=== PATIENT | male | born 1980 | race Two or more races ===

== ENCOUNTER 2023-01-02 18:08 | Emergency (ER) | payer MEDICAID, OTHER ==
[~2023-01-02] VITALS: Ht 188 cm; Wt 160.0 kg
[2023-01-02 18:57] LABS: Basophils # (auto) 0.1 10 ^3/uL (0-0.2); Basophils % (auto) 1.7 % (0.0-2.0); Eosinophils # (auto) 0.1 10 ^3/uL (0-0.8); Eosinophils % (auto) 2.7 % (0.0-7.0); Hematocrit 38.3 % (41.0-53.0); Hemoglobin 12.6 g/dL (13.5-17.5); Lymphocytes # (auto) 0.8 10 ^3/uL (0.4-5.4); Lymphocytes % (auto) 25.9 % (10.0-50.0); Mean Corpuscular Hemoglobin 28.6 pg (28.0-32.0); Mean Corpuscular Hgb Conc. 32.8 g/dL (32.0-36.0); Mean Corpuscular Volume 87.1 fL (80.0-100.0); Monocytes # (auto) 0.4 10 ^3/uL (0-1.3); Monocytes % (auto) 13.9 % (0.0-12.0); Neutrophils # (auto) 1.8 10 ^3/uL (1.6-8.6); Neutrophils % (auto) 55.8 % (37.0-80.0); Nucleated Red Blood Cells % 0.2 %; Red Cell Distribution Width 17.6 % (11.8-14.3); White Blood Cell 3.2 10^3/uL (4.4-10.8)
[2023-01-02 19:17] LABS: Albumin 2.9 g/dL (3.4-5.0); Calcium 8.4 mg/dL (8.5-10.1); Potassium 3.6 mmol/L (3.5-5.1)
[2023-01-02 19:21] LABS: BUN/Creatinine Ratio 11.2 (10.0-20.0); Bilirubin, Total 1.8 mg/dL (0.2-1.0); Total Protein 6.6 g/dL (6.4-8.2)
[2023-01-02] MEDS ORDERED: HYDROmorphone HCL 2 MG/ML VL/or syr IM ONE (20:00)
[2023-01-02] MEDS ORDERED: ONDANSETRON HCL 4 MG/2 ML VIAL IM ONE (20:00)
[2023-01-02] MEDS ORDERED: IBUP-1455 PO (23:15)
[2023-01-02] MEDS ORDERED: CEPH500C PO (23:15)
[2023-01-03 00:21] VITALS: TEMP 97.7; O2SAT 96
[2023-01-03 00:22] VITALS: BP 168/92; PULSE 77; RESP 18
== END 2023-01-02 23:34 | disposition home or self-care (01) ==
LOC: ER 18:08
DX: N43.3 Hydrocele, unspecified (principal); N50.812 Left testicular pain; N50.811 Right testicular pain; I10 Essential (primary) hypertension; I50.9 Heart failure, unspecified; Z86.73 Personal history of transient ischemic attack (TIA), and cerebral infarction without residual deficits
CPT/HCPCS: 36415; 71046; 76870; 80053; 83880; 85025; 96372; 99285; J1170; J2405

== ENCOUNTER 2024-01-31 11:22 | Inpatient (IN) | payer MEDICAID ==
[~2024-01-31] VITALS: Ht 188 cm; Wt 160.5 kg
[~2024-01-31 11:22] MED LIST: CEPH500C PO; IBUP-1455 PO
[2024-01-31 12:42] VITALS: PULSE 82
[2024-01-31 13:52] LABS: Basophils # (auto) 0 10 ^3/uL (0-0.2); Basophils % (auto) 0.5 % (0.0-2.0); Eosinophils # (auto) 0.2 10 ^3/uL (0-0.8); Eosinophils % (auto) 2.4 % (0.0-7.0); Hematocrit 36.6 % (41.0-53.0); Hemoglobin 11.9 g/dL (13.5-17.5); Lymphocytes # (auto) 0.8 10 ^3/uL (0.4-5.4); Lymphocytes % (auto) 8.7 % (10.0-50.0); Mean Corpuscular Hemoglobin 31.3 pg (28.0-32.0); Mean Corpuscular Hgb Conc. 32.6 g/dL (32.0-36.0); Mean Corpuscular Volume 95.9 fL (80.0-100.0); Monocytes # (auto) 0.9 10 ^3/uL (0-1.3); Monocytes % (auto) 10.8 % (0.0-12.0); Neutrophils # (auto) 6.8 10 ^3/uL (1.6-8.6); Neutrophils % (auto) 77.6 % (37.0-80.0); Platelet Count (auto) 223 10^3/uL (140-450); Red Blood Cells 3.81 10^6/uL (4.5-5.90); Red Cell Distribution Width 15.6 % (11.8-14.3); White Blood Cell 8.8 10^3/uL (4.4-10.8)
[2024-01-31 14:00] LABS: Chloride 110 mmol/L (98-107); Sodium 135 mmol/L (136-145)
[2024-01-31 14:01] LABS: Calcium 8.8 mg/dL (8.7-10.4); Carbon Dioxide 15 mmol/L (20-30)
[2024-01-31 14:05] LABS: Uric Acid 12.8 mg/dL (3.7-9.2)
[2024-01-31 14:06] LABS: BUN/Creatinine Ratio 14.5 (10.0-20.0); Glucose 91 mg/dL (74-106)
[2024-01-31 14:13] LABS: Blood Urea Nitrogen 84 mg/dL (9-23)
[2024-01-31 14:14] LABS: Potassium 7.1 mmol/L (3.5-5.1)
[2024-01-31 14:15] LABS: Anion Gap 10 (5-15)
[2024-01-31] MEDS: CALCIUM CHL 100MG/ML 500 MG in D5W 5% 100 ML IV ONE (14:30)
[2024-01-31] MEDS: InsuLIN REG 1unit/0.01ml Soln (100units/ml) IV ONE (14:30)
[2024-01-31] MEDS: SODIUM BICARB 8.4% 50Meq/50ml SYR INJ IV ONE (14:30)
[2024-01-31] MEDS: DEXTROSE (50%) 50ML SYRG IV ONE (14:30)
[2024-01-31] MEDS: SODIUM ZIRCONIUM CYCL 10 GM PAK PO ONE (14:45)
[2024-01-31] MEDS: methylPREDNISolone SOD SUCC 125 MG/2 ML VL IV ONE (14:45)
[2024-01-31] MEDS: SODIUM CHLORIDE 0.9% 1,000 ML IV ONE (14:45)
[2024-01-31] MEDS: ALBUTEROL SULF 2.5 MG/0.5ML(0.5%) NEB SOLN NEB ONE (14:56)
[2024-01-31 17:49] VITALS: BP 145/84; PULSE 75; RESP 16; TEMP 97.6; O2SAT 96
[2024-01-31 18:29] VITALS: O2SAT 98
[2024-01-31 18:30] VITALS: BP 168/98; PULSE 78; RESP 18; TEMP 97.8; O2SAT 98
[2024-01-31 20:00] VITALS: PULSE 81; RESP 20; O2SAT 94
[2024-01-31 20:17] LABS: Anion Gap 9 (5-15); Carbon Dioxide 16 mmol/L (20-30); Chloride 111 mmol/L (98-107); Potassium 5.4 mmol/L (3.5-5.1); Sodium 136 mmol/L (136-145)
[2024-01-31 20:19] LABS: Calcium 9.2 mg/dL (8.7-10.4)
[2024-01-31 20:23] LABS: BUN/Creatinine Ratio 11.1 (10.0-20.0); Glucose 97 mg/dL (74-106)
[2024-01-31 20:24] LABS: Blood Urea Nitrogen 65 mg/dL (9-23)
[2024-01-31 20:48] VITALS: BP 161/89; PULSE 78; RESP 20; TEMP 98.3; O2SAT 97
[2024-01-31] MEDS: SODIUM BICARB 8.4% 50Meq/50ml SYR Vial IV ONE (21:15)
[2024-02-01] VITALS (11 sets, daily range): BP systolic 169–184; BP diastolic 90–104; PULSE 74–96; RESP 14–20; TEMP 98–98.2; O2SAT 95–100
[2024-02-01 00:32] LABS: Urine WBC None Seen /hpf (0 - 3)
[2024-02-01 01:08] LABS: Urine Bacteria FEW /hpf (None Seen); Urine Blood TRACE /uL (Negative); Urine Clarity Clear (Clear); Urine Color Colorless (Yellow); Urine Protein, UAD 1+ (Negative); Urine Specific Gravity 1.011 (1.001-1.035); Urine Urobilinogen Normal (Negative); Urine pH 5.5 (5.0-9.0)
[2024-02-01 01:09] LABS: Protein, Urine 80.4 mg/dL (0.0-11.9)
[2024-02-01 01:11] LABS: Creatinine, Urine 63.15 mg/dL (30.0-125.0)
[2024-02-01] MEDS ORDERED: CARV25TA55 PO (02:20)
[2024-02-01] MEDS ORDERED: ASPI-628 PO (02:23)
[2024-02-01] MEDS ORDERED: SPIR50TA5 PO (02:23)
[2024-02-01] MEDS ORDERED: LOSA-535 PO (02:23)
[2024-02-01] MEDS ORDERED: CHLO25TA2 PO (02:23)
[2024-02-01] MEDS ORDERED: CLON0.1T PO (02:23)
[2024-02-01] MEDS ORDERED: FURO40TA4 PO (02:23)
[2024-02-01] MEDS ORDERED: PRED10TA PO (02:23)
[2024-02-01] MEDS: HYDROcodone-ACET 5/325MG TAB PO PRN (02:32)
[2024-02-01] MEDS: hydrALAZINE HCL 20 MG/ML VL IV PRN (05:52)
[2024-02-01 07:11] LABS: Basophils # (auto) 0 10 ^3/uL (0-0.2); Basophils % (auto) 0.5 % (0.0-2.0); Eosinophils # (auto) 0.2 10 ^3/uL (0-0.8); Eosinophils % (auto) 1.8 % (0.0-7.0); Hemoglobin 11.9 g/dL (13.5-17.5); Lymphocytes % (auto) 10.7 % (10.0-50.0); Mean Corpuscular Hemoglobin 32.1 pg (28.0-32.0); Mean Corpuscular Hgb Conc. 33.9 g/dL (32.0-36.0); Mean Corpuscular Volume 94.7 fL (80.0-100.0); Monocytes # (auto) 1.2 10 ^3/uL (0-1.3); Monocytes % (auto) 12.4 % (0.0-12.0); Neutrophils % (auto) 74.6 % (37.0-80.0); Platelet Count (auto) 232 10^3/uL (140-450); Red Blood Cells 3.69 10^6/uL (4.5-5.90); Red Cell Distribution Width 15.3 % (11.8-14.3); White Blood Cell 9.3 10^3/uL (4.4-10.8)
[2024-02-01 07:31] LABS: Alanine Aminotransferase 14 U/L (7-40); Alkaline Phosphatase 79 U/L (46-116); Anion Gap 10 (5-15); BUN/Creatinine Ratio 12.7 (10.0-20.0); Blood Urea Nitrogen 73 mg/dL (9-23); Calcium 9.3 mg/dL (8.7-10.4); Carbon Dioxide 15 mmol/L (20-30); Chloride 111 mmol/L (98-107); Glucose 90 mg/dL (74-106); Sodium 136 mmol/L (136-145)
[2024-02-01 07:32] LABS: Albumin 4.2 g/dL (3.2-4.8); Aspartate Aminotransferase 8 U/L (13-40); Bilirubin, Total 0.4 mg/dL (0.2-1.0); Total Protein 8.5 g/dL (5.7-8.2)
[2024-02-01 07:43] LABS: Potassium 5.8 mmol/L (3.5-5.1)
[2024-02-01] MEDS: ALBUTEROL SULF 2.5 MG/0.5ML(0.5%) NEB SOLN ONE (08:20)
[2024-02-01] MEDS: ALBUTEROL SULF 2.5 MG/0.5ML(0.5%) NEB SOLN NEB ONE (08:27)
[2024-02-01] MEDS: DEXTROSE (50%) 50ML SYRG IV ONE (10:55)
[2024-02-01] MEDS: InsuLIN REG 1unit/0.01ml Soln (100units/ml) IV ONE (11:03)
[2024-02-01] MEDS: FUROSEMIDE 20 MG/2 ML VIAL IV ONE (11:04)
[2024-02-01] MEDS: ACCU-CHEK COMFORT CURVE STRIP VI ONE (11:35)
[2024-02-01 16:06] LABS: Magnesium 2.3 mg/dL (1.6-2.6)
[2024-02-01 16:07] LABS: Phosphorus 4.9 mg/dL (2.4-5.1)
[2024-02-01] MEDS: amLODIPine BESYLATE 5 MG TAB PO ONE (16:35)
[2024-02-01] MEDS: FUROSEMIDE 100 MG/10ML VIAL IV SCH (17:49)
[2024-02-01] MEDS ORDERED: hydrALAZINE HCL 25 MG TAB PO SCH (22:00)
[2024-02-01] MEDS: ERGOCALCIFEROL 50,000 UNIT(1.25MG) CAP PO SCH (23:10)
[2024-02-01] MEDS: hydrALAZINE HCL 25 MG TAB PO ONE (23:11)
[2024-02-01] MEDS: SODIUM BICARB 8.4% 50Meq/50ml SYR Vial IV ONE (23:11)
[2024-02-01] MEDS: SODIUM ZIRCONIUM CYCL 10 GM PAK PO SCH (23:12)
[2024-02-02] VITALS (10 sets, daily range): BP systolic 107–173; BP diastolic 61–97; PULSE 85–100; RESP 16–20; TEMP 97.8–98.6; O2SAT 95–99
[2024-02-02] MEDS: hydrALAZINE HCL 25 MG TAB PO SCH ×2 (05:53→18:25)
[2024-02-02 05:59] LABS: Basophils # (auto) 0 10 ^3/uL (0-0.2); Basophils % (auto) 0.4 % (0.0-2.0); Eosinophils # (auto) 0.2 10 ^3/uL (0-0.8); Eosinophils % (auto) 2.2 % (0.0-7.0); Hematocrit 38.1 % (41.0-53.0); Hemoglobin 13.2 g/dL (13.5-17.5); Lymphocytes # (auto) 1.5 10 ^3/uL (0.4-5.4); Mean Corpuscular Hemoglobin 32.5 pg (28.0-32.0); Mean Corpuscular Hgb Conc. 34.6 g/dL (32.0-36.0); Monocytes # (auto) 1.6 10 ^3/uL (0-1.3); Monocytes % (auto) 16.3 % (0.0-12.0); Neutrophils # (auto) 6.5 10 ^3/uL (1.6-8.6); Neutrophils % (auto) 66.1 % (37.0-80.0); Platelet Count (auto) 271 10^3/uL (140-450); Red Blood Cells 4.06 10^6/uL (4.5-5.90); Red Cell Distribution Width 15.5 % (11.8-14.3); White Blood Cell 9.9 10^3/uL (4.4-10.8)
[2024-02-02 06:13] LABS: Alanine Aminotransferase 14 U/L (7-40); Alkaline Phosphatase 79 U/L (46-116); Anion Gap 11 (5-15); BUN/Creatinine Ratio 13.8 (10.0-20.0); Blood Urea Nitrogen 71 mg/dL (9-23); Calcium 10.1 mg/dL (8.7-10.4); Carbon Dioxide 16 mmol/L (20-30); Chloride 110 mmol/L (98-107); Glucose 104 mg/dL (74-106); Sodium 137 mmol/L (136-145)
[2024-02-02 06:15] LABS: Albumin 4.6 g/dL (3.2-4.8); Aspartate Aminotransferase 8 U/L (13-40); Bilirubin, Total 0.5 mg/dL (0.2-1.0); Total Protein 9.2 g/dL (5.7-8.2)
[2024-02-02 06:23] LABS: Potassium 5.7 mmol/L (3.5-5.1)
[2024-02-02 08:06] LABS: Complement C3 164 mg/dL (82-167)
[2024-02-02] MEDS: SODIUM BICARB 50mEq/50ml Vial 150 ML in D5W 5% 1,000 ML IV ONE (08:45)
[2024-02-02] MEDS: amLODIPine BESYLATE 5 MG TAB PO SCH (10:33)
[2024-02-02] MEDS: PANTOPRAZOLE 40 MG/10 ML VIAL INJ IV SCH (10:34)
[2024-02-02] MEDS ORDERED: SODIUM ZIRCONIUM CYCL 10 GM PAK PO ONE (11:00)
[2024-02-02] MEDS ORDERED: ACCU-CHEK COMFORT CURVE STRIP VI SCH (11:30)
[2024-02-02] MEDS: CALCIUM GLUC 1,000mg/50ml-NS 50 ML IV ONE (12:43)
[2024-02-02] MEDS: DEXTROSE (50%) 50ML SYRG IV ONE (12:44)
[2024-02-02] MEDS: predniSONE 20 MG TAB PO SCH (12:45)
[2024-02-02] MEDS: InsuLIN REG 1unit/0.01ml Soln (100units/ml) IV ONE (13:25)
[2024-02-02 14:06] LABS: Anti-Centromere B Antibody <0.2 AI (0.0-0.9); Anti-Jo-1 Antibody <0.2 AI (0.0-0.9); Anti-dsDNA Antibody <1 IU/mL (0-9); Antichromatin Antibody <0.2 AI (0.0-0.9); Antiscleroderma-70 Antibody <0.2 AI (0.0-0.9); RNP Antibody 0.2 AI (0.0-0.9); Sjogren's Anti-SS-A Antibody >8.0 AI (0.0-0.9); Sjogren's Anti-SS-B Antibody <0.2 AI (0.0-0.9); Smith Antibody <0.2 AI (0.0-0.9)
[2024-02-02] MEDS: SODIUM ZIRCONIUM CYCL 10 GM PAK PO SCH (18:24)
[2024-02-02] MEDS ORDERED: ACYCLOVIR 10MG/KG Q8HR PER RX 0 ML IV SCH (19:00)
[2024-02-02] MEDS: ENOXAPARIN SOD 30 MG/0.3 ML SYRINGE SC ONE (20:39)
[2024-02-02] MEDS: cloNIDine HCL 0.1 MG TAB PO PRN (22:48)
[2024-02-02] MEDS: SODIUM BICARB 50mEq/50ml Vial 150 ML in D5W 5% 1,000 ML IV SCH (22:49)
[2024-02-03] VITALS (10 sets, daily range): BP systolic 121–160; BP diastolic 58–93; PULSE 73–93; RESP 14–20; TEMP 97–98.7; O2SAT 92–97
[2024-02-03] MEDS: SODIUM BICARB 8.4% 50Meq/50ml SYR Vial IV ONE (02:32)
[2024-02-03 06:01] LABS: Alanine Aminotransferase 14 U/L (7-40); Alkaline Phosphatase 74 U/L (46-116); Calcium 9.7 mg/dL (8.7-10.4); Carbon Dioxide 18 mmol/L (20-30); Chloride 106 mmol/L (98-107); Glucose 130 mg/dL (74-106)
[2024-02-03 06:02] LABS: Albumin 4.3 g/dL (3.2-4.8); Anion Gap 11 (5-15); Aspartate Aminotransferase 11 U/L (13-40); BUN/Creatinine Ratio 14.8 (10.0-20.0); Bilirubin, Total 0.3 mg/dL (0.2-1.0); Blood Urea Nitrogen 76 mg/dL (9-23); Potassium 4.8 mmol/L (3.5-5.1); Sodium 135 mmol/L (136-145); Total Protein 8.8 g/dL (5.7-8.2)
[2024-02-03] MEDS: PANTOPRAZOLE 40 MG TAB PO SCH (06:42)
[2024-02-03 07:15] LABS: Basophils # (auto) 0 10 ^3/uL (0-0.2); Basophils % (auto) 0.2 % (0.0-2.0); Eosinophils # (auto) 0 10 ^3/uL (0-0.8); Hematocrit 37.5 % (41.0-53.0); Hemoglobin 12.7 g/dL (13.5-17.5); Lymphocytes # (auto) 1.2 10 ^3/uL (0.4-5.4); Lymphocytes % (auto) 10.2 % (10.0-50.0); Mean Corpuscular Hemoglobin 31.5 pg (28.0-32.0); Mean Corpuscular Hgb Conc. 33.9 g/dL (32.0-36.0); Mean Corpuscular Volume 92.7 fL (80.0-100.0); Monocytes # (auto) 1.3 10 ^3/uL (0-1.3); Monocytes % (auto) 11.2 % (0.0-12.0); Neutrophils # (auto) 9.1 10 ^3/uL (1.6-8.6); Neutrophils % (auto) 78.4 % (37.0-80.0); Nucleated Red Blood Cells % 0.1 %; Platelet Count (auto) 295 10^3/uL (140-450); Red Blood Cells 4.05 10^6/uL (4.5-5.90); Red Cell Distribution Width 15.5 % (11.8-14.3); White Blood Cell 11.6 10^3/uL (4.4-10.8)
[2024-02-03] MEDS: ENOXAPARIN SOD 30 MG/0.3 ML SYRINGE SC SCH (09:00)
[2024-02-03] MEDS ORDERED: predniSONE 20 MG TAB PO ONE (16:15)
[2024-02-03] MEDS: methylPREDNISolone SOD SUCC 1,000 MG in SODIUM CHL 0.9% 250 ML IV SCH (17:17)
[2024-02-04] VITALS (10 sets, daily range): BP systolic 125–160; BP diastolic 79–103; PULSE 82–109; RESP 14–21; TEMP 97.6–98.2; O2SAT 95–98
[2024-02-04 05:55] LABS: Basophils # (auto) 0 10 ^3/uL (0-0.2); Basophils % (auto) 0.1 % (0.0-2.0); Eosinophils # (auto) 0 10 ^3/uL (0-0.8); Hemoglobin 12.4 g/dL (13.5-17.5); Lymphocytes # (auto) 1.3 10 ^3/uL (0.4-5.4); Lymphocytes % (auto) 8.8 % (10.0-50.0); Mean Corpuscular Hemoglobin 31.8 pg (28.0-32.0); Mean Corpuscular Hgb Conc. 34.5 g/dL (32.0-36.0); Mean Corpuscular Volume 92.3 fL (80.0-100.0); Monocytes # (auto) 0.3 10 ^3/uL (0-1.3); Monocytes % (auto) 1.8 % (0.0-12.0); Neutrophils # (auto) 13.6 10 ^3/uL (1.6-8.6); Neutrophils % (auto) 89.3 % (37.0-80.0); Platelet Count (auto) 341 10^3/uL (140-450); Red Cell Distribution Width 15.2 % (11.8-14.3); White Blood Cell 15.2 10^3/uL (4.4-10.8)
[2024-02-04 05:59] LABS: Alanine Aminotransferase 20 U/L (7-40); Albumin 4.2 g/dL (3.2-4.8); Alkaline Phosphatase 70 U/L (46-116); Anion Gap 11 (5-15); Aspartate Aminotransferase 8 U/L (13-40); BUN/Creatinine Ratio 17.9 (10.0-20.0); Bilirubin, Total 0.3 mg/dL (0.2-1.0); Calcium 9.8 mg/dL (8.7-10.4); Carbon Dioxide 21 mmol/L (20-30); Chloride 104 mmol/L (98-107); Glucose 156 mg/dL (74-106); Potassium 4.8 mmol/L (3.5-5.1); Sodium 136 mmol/L (136-145); Total Protein 8.7 g/dL (5.7-8.2)
[2024-02-04 06:15] LABS: Blood Urea Nitrogen 91 mg/dL (9-23)
[2024-02-04 09:00] LABS: Hepatitis B Surface Antigen Negative (Negative)
[2024-02-04 09:21] LABS: Hepatitis A Ab IgM Negative; Hepatitis B Core IgM Negative
[2024-02-04 09:22] LABS: Hepatitis C Antibody Negative (Negative)
[2024-02-04] MEDS ORDERED: predniSONE 20 MG TAB PO SCH (10:00)
[2024-02-05] VITALS (8 sets, daily range): BP systolic 126–163; BP diastolic 71–97; PULSE 76–92; RESP 20; TEMP 97.7–98.1; O2SAT 91–99
[2024-02-05] MEDS: FUROSEMIDE 100 MG/10ML VIAL IV SCH (05:25)
[2024-02-05 06:26] LABS: Basophils # (auto) 0 10 ^3/uL (0-0.2); Basophils % (auto) 0.1 % (0.0-2.0); Eosinophils # (auto) 0 10 ^3/uL (0-0.8); Hematocrit 36.3 % (41.0-53.0); Hemoglobin 12.5 g/dL (13.5-17.5); Lymphocytes % (auto) 5.5 % (10.0-50.0); Mean Corpuscular Hemoglobin 31.9 pg (28.0-32.0); Mean Corpuscular Hgb Conc. 34.4 g/dL (32.0-36.0); Mean Corpuscular Volume 92.6 fL (80.0-100.0); Monocytes # (auto) 1.1 10 ^3/uL (0-1.3); Monocytes % (auto) 5.7 % (0.0-12.0); Neutrophils # (auto) 16.2 10 ^3/uL (1.6-8.6); Neutrophils % (auto) 88.7 % (37.0-80.0); Platelet Count (auto) 343 10^3/uL (140-450); Red Blood Cells 3.92 10^6/uL (4.5-5.90); Red Cell Distribution Width 15.3 % (11.8-14.3); White Blood Cell 18.3 10^3/uL (4.4-10.8)
[2024-02-05 06:49] LABS: Alanine Aminotransferase 20 U/L (7-40); Albumin 4.3 g/dL (3.2-4.8); Alkaline Phosphatase 66 U/L (46-116); Anion Gap 10 (5-15); Aspartate Aminotransferase < 8 U/L (13-40); BUN/Creatinine Ratio 19.1 (10.0-20.0); Calcium 9.5 mg/dL (8.7-10.4); Carbon Dioxide 23 mmol/L (20-30); Chloride 104 mmol/L (98-107); Glucose 146 mg/dL (74-106); Potassium 4.4 mmol/L (3.5-5.1); Sodium 137 mmol/L (136-145)
[2024-02-05 06:50] LABS: Bilirubin, Total 0.3 mg/dL (0.2-1.0)
[2024-02-05 06:51] LABS: Total Protein 8.7 g/dL (5.7-8.2)
[2024-02-05 06:58] LABS: Blood Urea Nitrogen 95 mg/dL (9-23)
[2024-02-05] MEDS: hydrALAZINE HCL 20 MG/ML VL ONE (09:26)
[2024-02-05] MEDS: fentaNYL CITRATE 100 MCG/2 ML VL ONE (09:26)
[2024-02-05] MEDS: MIDAZOLAM HCL 2MG/2ML 2ml VIAL (1mg/ml) ONE (09:26)
[2024-02-05 09:48] LABS: INR 1.06 (0.9-1.15); Prothrombin Time 11.4 sec (9.3-11.8)
[2024-02-05 12:06] LABS: Cytoplasmic (C-ANCA) <1:20 titer (Neg:<1:20); Perinuclear (P-ANCA) <1:20 titer (Neg:<1:20)
[2024-02-05 17:06] LABS: Antiglomerular BM Antibody <0.2 units (0.0-0.9); Antimyeloperoxidase (MPO) Ab <0.2 units (0.0-0.9); Antiproteinase 3 (PR-3) Ab <0.2 units (0.0-0.9)
[2024-02-06 06:14] LABS: Albumin 3.1 g/dL (2.9-4.4); Alpha-1-Globulin 0.4 g/dL (0.0-0.4); Alpha-2-Globulin 0.9 g/dL (0.4-1.0); Gamma Globulin 2.6 g/dL (0.4-1.8); Globulin Total 5.3 g/dL (2.2-3.9); Immunoglobulin A 481 mg/dL (90-386); Immunoglobulin G, Serum 2732 mg/dL (603-1613); Immunoglobulin M 44 mg/dL (20-172); Protein Total Serum 8.4 g/dL (6.0-8.5)
[2024-02-06 14:06] LABS: Kappa Lite Chain Free Serum 152.8 mg/L (3.3-19.4)
== END 2024-02-05 14:10 | disposition home or self-care (01) | DRG 346 ==
LOC: ER 11:22 → TELE 14:41 → TELE-E-ADS 17:30
PROVIDERS: ADMIT Internal Medicine; ATTEND Internal Medicine
PROC: 0TB13ZX Excision of Left Kidney, Percutaneous Approach, Diagnostic (ICD-10-PCS; principal; 2024-02-05)
DX: M35.00 Sjogren syndrome, unspecified (principal); I50.33 Acute on chronic diastolic (congestive) heart failure; N17.9 Acute kidney failure, unspecified; N18.4 Chronic kidney disease, stage 4 (severe); M32.9 Systemic lupus erythematosus, unspecified; I13.0 Hypertensive heart and chronic kidney disease with heart failure and stage 1 through stage 4 chronic kidney disease, or unspecified chronic kidney disease; M35.9 Systemic involvement of connective tissue, unspecified; F17.210 Nicotine dependence, cigarettes, uncomplicated; E87.5 Hyperkalemia; M10.9 Gout, unspecified; E21.3 Hyperparathyroidism, unspecified; E55.9 Vitamin D deficiency, unspecified; Z86.73 Personal history of transient ischemic attack (TIA), and cerebral infarction without residual deficits
CPT/HCPCS: 36415; 71045; 76700; 76775; 76942; 80048; 80053; 80074; 81001; 82306; 82570; 82784; 82962; 83516; 83520; 83521; 83735; 83880; 83970; 84100; 84132; 84155; 84156; 84165; 84300; 84550; 85025; 85610; 85730; 86160; 86225; 86235; 86256; 86334; 86703; 93306; 93970; 94640; G0378; J1815; J2250; J2470; J7060

== ENCOUNTER 2024-04-13 10:20 | Emergency (ER) | payer MEDICAID ==
[~2024-04-13] VITALS: Ht 188 cm; Wt 163.0 kg
[~2024-04-13 10:20] MED LIST changes: +ASPI-628 PO; +CARV25TA55 PO; +CHLO25TA2 PO; +CLON0.1T PO; +FURO40TA4 PO; +LOSA-535 PO; +PRED10TA PO; +SPIR50TA5 PO
[2024-04-13 10:40] VITALS: PULSE 63; RESP 19; TEMP 98.2; O2SAT 100
[2024-04-13] MEDS ORDERED: hydrALAZINE HCL 20 MG/ML VL IV ONE (10:45)
--- NOTE | 2024-04-13 10:52 | ED.PDOC ---
General HPI Comments 44y M who presents to the ED for chief complaint of penile problem. Pt states he has been having persistent erection since earlier this AM,for approx 4 hours. Pt states he did not take anything earlier this AM and states he started to have pain when voiding and came to the ED for further evaluation. Pt states he otherwise jorge no history of erectile dysfunction and states he is still in pain but states the pain has lessened since first starting 4 hours prior. Pt in the ED, otherwise denies hematuria, inability to void, nausea, vomiting, fever, cough, chills, chest pain or shortness of breath. Pt has noted history of CHF, HTN and SLE and states he did not take any of those medications earlier this AM. Pt otherwise denies any other symptoms at this time. Chief Complaint: Penile Problem Time Seen by MD: 10:48 Reviewed notes: Nurses Notes, Medications, Allergies Allergies: Coded Allergies: NO KNOWN ALLERGIES (Unverified , 01/02/23) Home Meds Active Scripts Cephalexin (Cephalexin) 125 Mg/5 Ml Lorelei, 5 ML PO BID, #100 ML Prov:DEWAYNE WEBB MD 04/13/24 Ibuprofen Micronized (Ibuprofen) 800 Mg Tab, 800 MG PO TID PRN, #60 TAB Prov:MIKE SIMENTAL 01/02/23 Cephalexin Monohydrate (Cephalexin) 500 Mg Cap, 1 CAP PO QID for 10 Days, #40 CAP Prov:MIKE SIMENTAL 01/02/23 Reported Medications Prednisone (Prednisone) 10 Mg Tab, 6 TAB PO DAILY 02/01/24 Chlorthalidone (Chlorthalidone) 25 Mg Tab, 1 TAB PO DAILY 02/01/24 Furosemide (Furosemide) 40 Mg Tab, 2 TAB PO DAILY 02/01/24 Losartan Potassium (Losartan Potassium) 100 Mg Tab, 1 TAB PO DAILY 02/01/24 Aspirin (Aspirin Adult Low Dose) 81 Mg Tab, 1 TAB PO DAILY 02/01/24 Spironolactone (Spironolactone) 50 Mg Tab, 1 TAB PO DAILY 02/01/24 Clonidine Hydrochloride (Clonidine Hcl) 0.1 Mg Tab, 1 TAB PO BID 02/01/24 Carvedilol (Carvedilol) 25 Mg Tab, 25 MG PO Q12HR for 30 Days, MG 02/01/24 Information Source: Patient Mode of Arrival: Ambulatory Brought in by: self Severity: Moderate Inability to void: Moderate Timing: Hours Duration: Since onset Prehospital treatment: None Onset: Spontaneous Symptoms: Dysuria History of: None Location: Suprapubic Penile discharge: None Modifying factors: None associated signs and symptoms: Dysuria Past Medical History PAST MEDICAL HISTORY: CHF, CVA, HTN Past Medical History (Other): SLE Surgical History: Denies all surgeries Family History Family History: Reviewed,noncontributory to illness Social History Smoker: Cigarettes Alcohol: Occasionally Drugs: Marijuana Lives In: Home Constitutional: denies: chills, diaphoresis, fatigue, fever, malaise, sweats, weakness, others EENTM: denies: blurred vision, double vision, ear bleeding, ear discharge, ear drainage, ear pain, ear ringing, eye pain, eye redness, hearing loss, mouth pain, mouth swelling, nasal discharge, nose bleeding, nose congestion, nose pain, photophobia, tearing, throat pain, throat swelling, voice changes, others Respiratory: denies: cough, hemoptysis, orthopnea, SOB at rest, shortness of breath, SOB with excertion, stridor, wheezing, others Cardiovascular: denies: chest pain, dizzy spells, diaphoresis, Dyspnea on exertion, edema, irregular heart beat, left arm pain, lightheadedness, palpitations, PND, syncope, others Gastrointestinal: denies: abdomen distended, abdominal pain, blood streaked bowels, constipated, diarrhea, dysphagia, difficulty swallowing, hematemesis, melena, nausea, poor appetite, poor fluid intake, rectal bleeding, rectal pain, vomiting, others Genitourinary: reports: dysuria; denies: burning, flank pain, frequency, hematuria, incontinence, penile discharge, penile sore, pain, testicle pain, testicle swelling, urgency, others Neurological: denies: dizziness, fainting, headache, left sided numbness, left sided weakness, numbness, paresthesia, pre-existing deficit, right sided numbness, right sided weakness, seizure, speech problems, tingling, tremors, weakness, others Musculoskeletal: denies: back pain, gout, joint pain, joint swelling, muscle pain, muscle stiffness, neck pain, others Integumetry: denies: bruises, change in color, change in hair/nails, dryness, laceration, lesions, lumps, rash, wounds, others Allergic/Immunocompromised: denies: Difficulty Healing, Frequent Infections, Hives, Itching, others Hematologic/Lymphatic: denies: anemia, blood clots, easy bleeding, easy bruising, swollen glands, others Endocrine: denies: excessive hunger, excessive sweating, excessive thirst, excessive urination, flushing, intolerance to cold, intolerance to heat, unexplained weight gain, unexplained weight loss, others Psychiatric: denies: anxiety, bipolar disorder, depression, hopeless, panic disorder, schizophrenia, sleepless, suicidal, others All Other Systems: Reviewed and Negative Physical Exam General Appearance: Moderate Distress HEENT: Normal ENT Inspection, Pharynx Normal, TMs Normal Neck: Full Range of Motion, Non-Tender, Normal, Normal Inspection Respiratory: Chest Non-Tender, Lungs Clear, No Accessory Muscle Use, No Respiratory Distress, Normal Breath Sounds Cardiovascular: No Edema, No JVD, No Murmur, No Gallop, Normal Peripheral Pulses, Regular Rate/Rhythm Breast Exam: Deferred Gastrointestinal: No Organomegaly, Non Tender, No Pulsatile Mass, Normal Bowel Sounds, Soft Genitalia: Other (Priapism) Pelvic: Deferred Rectal: Deferred Extremities: No calf tenderness, Normal capillary refill, Normal inspection, Normal range of motion, Non-tender, No pedal edema Musculoskeletal : Apperance: Normal Neurologic: Alert, health information director II-XII nml as Tested, No Motor Deficits, Normal Affect, Normal Mood, No Sensory Deficits Cerebellar Function: Normal Reflexes: Normal Skin: Dry, Normal Color, Warm Lymphatic: No Adenopathy Was a procedure done? Was a procedure done?: No Differential Diagnosis Kidney stone (Female): N/A Urinary Problem (Male): Epididymitis, Urethritis, Urinary Retention, Urolithi asis, UTI, Other (priapism) X-Ray, Labs, Meds, VS Vital Signs Date Time Temp Pulse Resp B/P (MAP) Pulse Ox O2 Delivery O2 Flow Rate FiO2 04/13/24 14:03 73 12 179/104 (129) 100 04/13/24 13:21 82 04/13/24 12:19 199/123 04/13/24 12:07 204/116 04/13/24 11:07 199/123 04/13/24 10:40 98.2 63 19 199/123 (148) 100 98.2 11/10/24 10:40 63 19 100 Room Air* 0 21 04/13/24 10:30 97.8 62 18 206/121 (149) 97 201/125 (150) Lab Test 04/13/24 10:51 Range/Units White Blood Count 12.2 H 4.4-10.8 10^3/uL Red Blood Count 3.60 L 4.5-5.90 10^6/uL Hemoglobin 11.1 L 13.5-17.5 g/dL Hematocrit 33.6 L 41.0-53.0 % Mean Corpuscular Volume 93.4 80.0-100.0 fL Mean Corpuscular Hemoglobin 30.7 28.0-32.0 pg Mean Corpuscular Hemoglobin Concent 32.9 32.0-36.0 g/dL Red Cell Distribution Width 16.7 H 11.8-14.3 % Platelet Count 169 140-450 10^3/uL Mean Platelet Volume 8.4 6.9-10.8 fL Neutrophils (%) (Auto) 77.8 37.0-80.0 % Lymphocytes (%) (Auto) 13.3 10.0-50.0 % Monocytes (%) (Auto) 7.7 0.0-12.0 % Eosinophils (%) (Auto) 0.2 0.0-7.0 % Basophils (%) (Auto) 1.0 0.0-2.0 % Neutrophils # (Auto) 9.5 H 1.6-8.6 10 ^3/uL Lymphocytes # (Auto) 1.6 0.4-5.4 10 ^3/uL Monocytes # (Auto) 0.9 0-1.3 10 ^3/uL Eosinophils # (Auto) 0 0-0.8 10 ^3/uL Basophils # (Auto) 0.1 0-0.2 10 ^3/uL Nucleated Red Blood Cells 0.1 % B-Type Natriuretic Peptide 333.13 0-100 pg/mL Current Medications Medications (Trade) Dose Ordered Sig/Yvan Route Start Time Stop Time Status Last Admin Clonidine HCl (Catapres Tablet) 0.2 mg ONCE ONCE PO 04/13/24 10:45 04/13/24 10:46 DC 04/13/24 11:07 Diphenhydramine HCl (Benadryl Injection) 25 mg ONCE ONCE IV 04/13/24 11:00 04/13/24 11:01 DC 04/13/24 11:07 Sodium Bicarbonate 50 ml/ Sodium Chloride 1,050 ml @ 50 mls/hr ONCE ONCE IV 04/13/24 11:45 04/14/24 08:44 04/13/24 11:52 Hydralazine HCl (Apresoline Injection) 20 mg ONCE ONCE IV 04/13/24 12:15 04/13/24 12:16 DC 04/13/24 12:19 We immediately consulted Urology. The patient was initially given clonidine 0.2 mg by mouth for the elevated blood pressure The patient was then given Benadryl 25 mg IV push The patient remained with the significant priapism The patient's CBC shows an elevated white blood cell count of 12.2 The patient was able to urinate but some mild difficulty The BNP is 333.13 The patient remains extremely hypertensive so the patient was then given hydralazine 20 mg IV push We did start the patient on a sodium bicarbonate drip Urology did come down and started to withdraw blood from the penile area. We did not have a significant amount of success until we reached the1 L chris of blood extraction The patient has remained significantly hypertensive We explained to the patient that we are going to started nicardipine drip and most likely the patient would have to be admitted for accelerated hypertension The patient stated that he wants to leave AMA We told the patient that he could not leave and if he was our family member we would recommend admission The patient is still stated that he wanted to leave so he signed out AMA. Time of 1ST Reevaluation: 11:15 Reevaluation 1ST: Unchanged Patient Education/Counseling: Diagnosis, Treatment, Prognosis Family Education/Counseling: Diagnosis, Treatment, Prognosis Departure 1 Departure Time of Disposition: 14:23 Impression: Primary Impression: High flow priapism Additional Impression: Accelerated hypertension Disposition: LEFT AGAINST MEDICAL ADVICE Condition: Fair e-Prescriptions Cephalexin (Cephalexin) 125 Mg/5 Ml Lorelei 5 ML PO BID, #100 ML Prov: DEWAYNE WEBB MD 04/13/24 Critical Care Note Critical Care Time?: Yes (45 min-critical care time only) Stability Stability form required: Yes Unstable for transfer: Telemetry monitoring (Telemetry monitoring required), ED Physician Assesment (Clinical assesment) Heart Score Heart Score: Heart Score Response (Comments) Value History N/A 0 EKG N/A 0 Age N/A 0 Risk Factors N/A 0 Troponin N/A 0 Total 0 I personally scribed for DEWAYNE WEBB MD ([email or web address]) on 04/13/24 at 10:52. Electronically submitted by Ihsan Krishna ([facility] DEWAYNE WEBB MD Apr 13, 2024 10:52
[2024-04-13] MEDS: PSEUDOEPHEDRINE HCL 30 MG TAB PO ONE ×2 (11:00→12:27)
[2024-04-13 11:02] LABS: Basophils # (auto) 0.1 10 ^3/uL (0-0.2); Eosinophils # (auto) 0 10 ^3/uL (0-0.8); Eosinophils % (auto) 0.2 % (0.0-7.0); Hematocrit 33.6 % (41.0-53.0); Hemoglobin 11.1 g/dL (13.5-17.5); Lymphocytes # (auto) 1.6 10 ^3/uL (0.4-5.4); Lymphocytes % (auto) 13.3 % (10.0-50.0); Mean Corpuscular Hemoglobin 30.7 pg (28.0-32.0); Mean Corpuscular Hgb Conc. 32.9 g/dL (32.0-36.0); Mean Corpuscular Volume 93.4 fL (80.0-100.0); Monocytes # (auto) 0.9 10 ^3/uL (0-1.3); Monocytes % (auto) 7.7 % (0.0-12.0); Neutrophils # (auto) 9.5 10 ^3/uL (1.6-8.6); Neutrophils % (auto) 77.8 % (37.0-80.0); Nucleated Red Blood Cells % 0.1 %; Platelet Count (auto) 169 10^3/uL (140-450); Red Cell Distribution Width 16.7 % (11.8-14.3); White Blood Cell 12.2 10^3/uL (4.4-10.8)
[2024-04-13] MEDS: diphenhdrAMINE HCL 50 MG/1 ML VL IV ONE (11:07)
[2024-04-13] MEDS: cloNIDine HCL 0.1 MG TAB PO ONE (11:07)
[2024-04-13] MEDS: PHENYLEPHRINE HCL 10 MG/ML VL ONE (11:43)
[2024-04-13] MEDS: PHENYLEPHRINE INJ 10 MG in SODIUM CHL 0.9% 19 ML IR ONE (11:43)
[2024-04-13] MEDS: SODIUM BICARB 50mEq/50ml Vial 50 ML in SOD CHL 0.45% 1,000 ML IV ONE (11:52)
[2024-04-13] MEDS: hydrALAZINE HCL 20 MG/ML VL IV ONE (12:19)
--- NOTE | 2024-04-13 12:43 | DVHINCON2 ---
Date of service: Apr 13, [address] Blue Reason for Consultation priapism History of Present Illness History Source: Patient, Spouse/Significant Other, RN Notes, MD Notes Exam Limitations: No limitations HPI 44 yo male with PMH of Lupus CHF and HTN presents with persistent erection greater than 4 hrs sudden onset upon waking this morning. Pt attempted sexual intercourse at home without relief of symptoms. He denies new or changes to medications. He does not drink alcohol. He did not take any medications known to cause priapism. His BP is uncontrolled at this time. Home Meds Active Scripts Ibuprofen Micronized (Ibuprofen) 800 Mg Tab, 800 MG PO TID PRN, #60 TAB Prov:MIKE SIMENTAL [employer]CH [employer] OPERATOR HELPER 01/02/23 Cephalexin Monohydrate (Cephalexin) 500 Mg Cap, 1 CAP PO QID for 10 Days, #40 CAP Prov:MIKE SIMENTAL PUNCH PR[employer] OPERATOR HELPER 01/02/23 Reported Medications Prednisone (Prednisone) 10 Mg Tab, 6 TAB PO DAILY 02/01/24 Chlorthalidone (Chlorthalidone) 25 Mg Tab, 1 TAB PO DAILY 02/01/24 Furosemide (Furosemide) 40 Mg Tab, 2 TAB PO DAILY 02/01/24 Losartan Potassium (Losartan Potassium) 100 Mg Tab, 1 TAB PO DAILY 02/01/24 Aspirin (Aspirin Adult Low Dose) 81 Mg Tab, 1 TAB PO DAILY 02/01/24 Spironolactone (Spironolactone) 50 Mg Tab, 1 TAB PO DAILY 02/01/24 Clonidine Hydrochloride (Clonidine Hcl) 0.1 Mg Tab, 1 TAB PO BID 02/01/24 Carvedilol (Carvedilol) 25 Mg Tab, 25 MG PO Q12HR for 30 Days, MG 02/01/24 Review of Systems Genitourinary: Pain (persistent erection) H&P Exam Vital Signs Vital Signs Date Time Temp Pulse Resp B/P (MAP) Pulse Ox O2 Delivery O2 Flow Rate FiO2 04/13/24 12:19 199/123 04/13/24 10:30 97.8 62 18 97 General Appeara: Well developed, Well nourished, Normal Appearance, Obese Pulmonary/Respiratory: Normal inspection, Normal breath sounds, Chest non- tender, Lungs clear Cardiovascular/Chest: Edema Abdominal Exam: Normal bowel sounds, Soft, No tenderness, No hepatospenomegaly, No masses Neuro/Mental St: Alert, Oriented Appearance: Appropriate appearance, Appropriate insight Eye contact/ Speech: Cooperative, Good eye contact, Normal speech Skin Exam: Normal inspection, Normal color, Warm/dry Labs/Xrays Labs Test 04/13/24 10:51 Range/Units White Blood Count 12.2 H 4.4-10.8 10^3/uL Red Blood Count 3.60 L 4.5-5.90 10^6/uL Hemoglobin 11.1 L 13.5-17.5 g/dL Hematocrit 33.6 L 41.0-53.0 % Mean Corpuscular Volume 93.4 80.0-100.0 fL Mean Corpuscular Hemoglobin 30.7 28.0-32.0 pg Mean Corpuscular Hemoglobin Concent 32.9 32.0-36.0 g/dL Red Cell Distribution Width 16.7 H 11.8-14.3 % Platelet Count 169 140-450 10^3/uL Mean Platelet Volume 8.4 6.9-10.8 fL Neutrophils (%) (Auto) 77.8 37.0-80.0 % Lymphocytes (%) (Auto) 13.3 10.0-50.0 % Monocytes (%) (Auto) 7.7 0.0-12.0 % Eosinophils (%) (Auto) 0.2 0.0-7.0 % Basophils (%) (Auto) 1.0 0.0-2.0 % Neutrophils # (Auto) 9.5 H 1.6-8.6 10 ^3/uL Lymphocytes # (Auto) 1.6 0.4-5.4 10 ^3/uL Monocytes # (Auto) 0.9 0-1.3 10 ^3/uL Eosinophils # (Auto) 0 0-0.8 10 ^3/uL Basophils # (Auto) 0.1 0-0.2 10 ^3/uL Nucleated Red Blood Cells 0.1 % B-Type Natriuretic Peptide 333.13 0-100 pg/mL Assessment/Plan Problem List: (1) High flow priapism Plan detumescence achieved after approx 850 mls aspirated and administration of 1 cc phenylephrine. pt was given 500 cc bolus of NS with amp of bicarb. aftercare instructions provided to at the bedside Plan discussed with: Patient, Spouse, Other PASQUALE VALLES NP Apr 13, 2024 12:43
[2024-04-13 14:03] VITALS: BP 179/104; PULSE 73; RESP 12; O2SAT 100
[2024-04-13] MEDS ORDERED: CEPH125S PO (14:25)
== END 2024-04-13 14:25 | disposition left against medical advice (07) ==
LOC: ER 10:20
DX: N48.39 Other priapism (principal); I11.0 Hypertensive heart disease with heart failure; I50.9 Heart failure, unspecified; F17.210 Nicotine dependence, cigarettes, uncomplicated; F15.90 Other stimulant use, unspecified, uncomplicated; Z86.73 Personal history of transient ischemic attack (TIA), and cerebral infarction without residual deficits; Z79.52 Long term (current) use of systemic steroids; Z79.82 Long term (current) use of aspirin; Z79.899 Other long term (current) drug therapy
CPT/HCPCS: 36415; 83880; 85025; 96365; 96375; 99285; J0360; J1200; J2371

== ENCOUNTER 2024-04-20 21:33 | Inpatient (IN) | payer MEDICAID ==
[~2024-04-20] VITALS: Ht 188 cm; Wt 162.0 kg
[~2024-04-20 21:33] MED LIST changes: +CEPH125S PO
[2024-04-20] MEDS: fentaNYL CITRATE 100 MCG/2 ML VL IV ONE (22:15)
[2024-04-20 22:22] LABS: Basophils # (auto) 0.1 10 ^3/uL (0-0.2); Basophils % (auto) 0.9 % (0.0-2.0); Eosinophils # (auto) 0.1 10 ^3/uL (0-0.8); Eosinophils % (auto) 0.4 % (0.0-7.0); Hematocrit 34.2 % (41.0-53.0); Hemoglobin 11.4 g/dL (13.5-17.5); Lymphocytes # (auto) 1.8 10 ^3/uL (0.4-5.4); Lymphocytes % (auto) 12.7 % (10.0-50.0); Mean Corpuscular Hemoglobin 30.8 pg (28.0-32.0); Mean Corpuscular Hgb Conc. 33.2 g/dL (32.0-36.0); Mean Corpuscular Volume 92.9 fL (80.0-100.0); Monocytes # (auto) 1.6 10 ^3/uL (0-1.3); Neutrophils # (auto) 10.7 10 ^3/uL (1.6-8.6); Nucleated Red Blood Cells % 0.1 %; Platelet Count (auto) 191 10^3/uL (140-450); Red Blood Cells 3.69 10^6/uL (4.5-5.90); Red Cell Distribution Width 15.8 % (11.8-14.3); White Blood Cell 14.2 10^3/uL (4.4-10.8)
[2024-04-20 22:36] LABS: Alanine Aminotransferase 18 U/L (7-40); Albumin 4.3 g/dL (3.2-4.8); Alkaline Phosphatase 57 U/L (46-116); Anion Gap 8 (5-15); Aspartate Aminotransferase < 8 U/L (13-40); BUN/Creatinine Ratio 14.9 (10.0-20.0); Blood Urea Nitrogen 47 mg/dL (9-23); Calcium 9.8 mg/dL (8.7-10.4); Carbon Dioxide 29 mmol/L (20-31); Chloride 104 mmol/L (98-107); Glucose 111 mg/dL (74-106); Potassium 3.5 mmol/L (3.5-5.1); Sodium 141 mmol/L (136-145)
[2024-04-20 22:37] LABS: Bilirubin, Total 1.6 mg/dL (0.2-1.0); Total Protein 7.4 g/dL (5.7-8.2)
--- NOTE | 2024-04-20 22:50 | DVH ---
CLINICAL INDICATION: Hip pain TECHNIQUE: 3 radiographic views of the right hip were obtained. Comparison: None FINDINGS/IMPRESSION: There is no evidence of acute fracture or dislocation. The visualized joint space is well maintained. The alignment is anatomical. There is no radiopaque foreign body.
--- NOTE | 2024-04-20 23:26 | ED.PDOC ---
Musculoskeletal HPI Comments 44-year-old male with past medical history pertinent for HTN, CKD, CHF, lupus, presents to ED for right hip pain x3 days, associated with numbness in his right lower extremity. Patient reports that he was seen at [facility] earlier today and was given morphine for his pain and clonidine for his high blood pressure, after which he was discharge. He states that he still had pain, prompting him to come back to this ED. Patient denies any chest pain, headache, shortness of breath, nausea, vomiting, blurry vision. Patient reports that he recently finished high dose of steroids for his kidney disease. Chief Complaint: High Blood Pressure Time Seen by MD: 21:37 Primary Care Provider: DR RODRÍGUEZ Reviewed Notes: Nurses Notes, Medications, Allergies Allergies: Coded Allergies: NO KNOWN ALLERGIES (Unverified , 01/02/23) Home Meds Active Scripts Cephalexin (Cephalexin) 125 Mg/5 Ml Lorelei, 5 ML PO BID, #100 ML Prov:DEWAYNE WEBB MD 04/13/24 Ibuprofen Micronized (Ibuprofen) 800 Mg Tab, 800 MG PO TID PRN, #60 TAB Prov:MIKE SIMENTAL 01/02/23 Cephalexin Monohydrate (Cephalexin) 500 Mg Cap, 1 CAP PO QID for 10 Days, #40 CAP Prov:MIKE SIMENTAL 01/02/23 Reported Medications Prednisone (Prednisone) 10 Mg Tab, 6 TAB PO DAILY 02/01/24 Chlorthalidone (Chlorthalidone) 25 Mg Tab, 1 TAB PO DAILY 02/01/24 Furosemide (Furosemide) 40 Mg Tab, 2 TAB PO DAILY 02/01/24 Losartan Potassium (Losartan Potassium) 100 Mg Tab, 1 TAB PO DAILY 02/01/24 Aspirin (Aspirin Adult Low Dose) 81 Mg Tab, 1 TAB PO DAILY 02/01/24 Spironolactone (Spironolactone) 50 Mg Tab, 1 TAB PO DAILY 02/01/24 Clonidine Hydrochloride (Clonidine Hcl) 0.1 Mg Tab, 1 TAB PO BID 02/01/24 Carvedilol (Carvedilol) 25 Mg Tab, 25 MG PO Q12HR for 30 Days, MG 02/01/24 Mode of Arrival: Ambulatory Past Medical History PAST MEDICAL HISTORY: CHF, CVA, HTN Surgical History: Denies all surgeries Family History Family History: Reviewed,noncontributory to illness Social History Smoker: Cigarettes Alcohol: Occasionally Drugs: Marijuana Lives In: Home Constitutional: denies: chills, diaphoresis, fatigue, fever, malaise, sweats, weakness, others EENTM: denies: blurred vision, double vision, ear bleeding, ear discharge, ear drainage, ear pain, ear ringing, eye pain, eye redness, hearing loss, mouth pain , mouth swelling, nasal discharge, nose bleeding, nose congestion, nose pain, photophobia, tearing, throat pain, throat swelling, voice changes, others Respiratory: denies: cough, hemoptysis, orthopnea, SOB at rest, shortness of breath, SOB with excertion, stridor, wheezing, others Cardiovascular: denies: chest pain, dizzy spells, diaphoresis, Dyspnea on exertion, edema, irregular heart beat, left arm pain, lightheadedness, palpitations, PND, syncope, others Gastrointestinal: denies: abdomen distended, abdominal pain, blood streaked bowels, constipated, diarrhea, dysphagia, difficulty swallowing, hematemesis, melena, nausea, poor appetite, poor fluid intake, rectal bleeding, rectal pain, vomiting, others Genitourinary: denies: burning, dysuria, flank pain, frequency, hematuria, incontinence, penile discharge, penile sore, pain, testicle pain, testicle swelling, urgency, others Neurological: reports: numbness; denies: dizziness, fainting, headache, left sided numbness, left sided weakness, paresthesia, pre-existing deficit, right sided numbness, right sided weakness, seizure, speech problems, tingling, tremors, weakness, others Musculoskeletal: reports: joint pain; denies: back pain, gout, joint swelling, muscle pain, muscle stiffness, neck pain, others Integumetry: denies: bruises, change in color, change in hair/nails, dryness, laceration, lesions, lumps, rash, wounds, others Allergic/Immunocompromised: denies: Difficulty Healing, Frequent Infections, Hives, Itching, others Hematologic/Lymphatic: denies: anemia, blood clots, easy bleeding, easy bruising, swollen glands, others Endocrine: denies: excessive hunger, excessive sweating, excessive thirst, excessive urination, flushing, intolerance to cold, intolerance to heat, unexplained weight gain, unexplained weight loss, others Psychiatric: denies: anxiety, bipolar disorder, depression, hopeless, panic disorder, schizophrenia, sleepless, suicidal, others All Other Systems: Reviewed and Negative Physical Exam General Appearance: Mild Distress, Normal HEENT: Normal ENT Inspection, Pharynx Normal, TMs Normal Neck: Full Range of Motion, Non-Tender, Normal, Normal Inspection Respiratory: Chest Non-Tender, Lungs Clear, No Accessory Muscle Use, No Respiratory Distress, Normal Breath Sounds Cardiovascular: No Edema, No JVD, No Murmur, No Gallop, Normal Peripheral Pulses, Regular Rate/Rhythm Breast Exam: Deferred Gastrointestinal: No Organomegaly, Non Tender, No Pulsatile Mass, Normal Bowel Sounds, Soft Genitalia: Deferred Pelvic: Deferred Rectal: Deferred Extremities: No calf tenderness (Negative Homans sign.), Normal capillary refill, Normal inspection, Normal range of motion, No pedal edema, Tender (Severe tenderness to the entire right lower extremity. 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 Was a procedure done?: No Differential Diagnosis EXT Differential Diagnosis: Fracture, Sprain, Dislocation, Septic, Neurovascular injury, Other (Avascular necrosis of the hip) X-Ray, Labs, Meds, VS Vital Signs Date Time Temp Pulse Resp B/P (MAP) Pulse Ox O2 Delivery O2 Flow Rate FiO2 04/21/24 02:52 99.1 101 20 135/74 (94) 93 99.1 04/21/24 01:08 Room Air* 0 21 04/21/24 01:03 101.0 04/21/24 00:43 96 20 96 Room Air 04/21/24 00:43 101.4 96 20 163/119 (134) 96 101.4 04/20/24 21:58 99.8 101 20 163/102 (122) 98 Lab Test 04/20/24 22:13 Range/Units White Blood Count 14.2 H 4.4-10.8 10^3/uL Red Blood Count 3.69 L 4.5-5.90 10^6/uL Hemoglobin 11.4 L 13.5-17.5 g/dL Hematocrit 34.2 L 41.0-53.0 % Mean Corpuscular Volume 92.9 80.0-100.0 fL Mean Corpuscular Hemoglobin 30.8 28.0-32.0 pg Mean Corpuscular Hemoglobin Concent 33.2 32.0-36.0 g/dL Red Cell Distribution Width 15.8 H 11.8-14.3 % Platelet Count 191 140-450 10^3/uL Mean Platelet Volume 8.2 6.9-10.8 fL Neutrophils (%) (Auto) 75.0 37.0-80.0 % Lymphocytes (%) (Auto) 12.7 10.0-50.0 % Monocytes (%) (Auto) 11.0 0.0-12.0 % Eosinophils (%) (Auto) 0.4 0.0-7.0 % Basophils (%) (Auto) 0.9 0.0-2.0 % Neutrophils # (Auto) 10.7 H 1.6-8.6 10 ^3/uL Lymphocytes # (Auto) 1.8 0.4-5.4 10 ^3/uL Monocytes # (Auto) 1.6 H 0-1.3 10 ^3/uL Eosinophils # (Auto) 0.1 0-0.8 10 ^3/uL Basophils # (Auto) 0.1 0-0.2 10 ^3/uL Nucleated Red Blood Cells 0.1 % Erythrocyte Sedimentation Rate 37 H 0-20 mm/hr Sodium Level 141 136-145 mmol/L Potassium Level 3.5 3.5-5.1 mmol/L Chloride Level 104 98-107 mmol/L Carbon Dioxide Level 29 20-31 mmol/L Anion Gap 8 5-15 Blood Urea Nitrogen 47 H 9-23 mg/dL Creatinine 3.16 H 0.700-1.30 mg/dL Glomerular Filtration Rate Calc 24 >90 mL/min BUN/Creatinine Ratio 14.9 10.0-20.0 Serum Glucose 111 H 74-106 mg/dL Calcium Level 9.8 8.7-10.4 mg/dL Total Bilirubin 1.6 H 0.2-1.0 mg/dL Aspartate Amino Transferase (AST) < 8 L 13-40 U/L Alanine Aminotransferase (ALT) 18 7-40 U/L Alkaline Phosphatase 57 46-116 U/L C-Reactive Protein High Sensitivity 11.12 H <1.0 mg/dL Total Protein 7.4 5.7-8.2 g/dL Albumin 4.3 3.2-4.8 g/dL Current Medications Medications (Trade) Dose Ordered Sig/Yvan Route Start Time Stop Time Status Last Admin Ibuprofen (Motrin Tablet) 600 mg ONCE ONCE PO 04/21/24 01:00 04/21/24 01:01 DC 04/21/24 01:03 Acetaminophen/ Hydrocodone Bitart ([place] 10/325MG Tab) 1 tab ONCE ONCE PO 04/21/24 01:00 04/21/24 01:01 DC 04/21/24 01:02 X-Ray, Labs, Meds, VS Comment Right Hip XR FINDINGS/IMPRESSION: There is no evidence of acute fracture or dislocation. The visualized joint space is well maintained. The alignment is anatomical. There is no radiopaque foreign body. Pelvis CT IMPRESSION: No acute fracture or traumatic malalignment. MDM: Patient with history as above presented with right hip pain. History obtained from patient. Patient was nontoxic, stable, febrile, in wheelchair, mild distress. Exam as above. Labs reviewed. CBC showed a leukocytosis of 14.2. Hemoglobin mildly decreased at 11.4 and hematocrit decreased at 34.2. CMP showed BUN elevated at 47, creatinine elevated at 3.16, which is improved from previous visits. ESR elevated at 37. CRP elevated at 11.12. Independently reviewed imaging. Right hip x-ray was unremarkable. CT of the pelvis did not show abnormalities. Reviewed external records. All findings were discussed with the patient. Differential diagnosis considered. Overall presentation is consistent with no nspecific hip pain. Low suspicion for acute fracture or traumatic malalignment. Patient was treated with ibuprofen and [place] with improvement in symptoms. Ordered fentanyl in the ED, however patient was not on a monitor could not be monitored for vital signs decline therefore the medication has been held at the moment. Because patient has a history of lupus and was taking high-dose Prednisone (120mg), I am suspecting avascular necrosis of the hip. Patient will be admitted to the hospital for further evaluation and possible MRI in the morning for definite diagnosis. Patient will need pain management. He came from [facility] after receiving IV morphine without relief of symptoms. Disposition: Admit for further evaluation This medical document was created using the [employer] dictation system. Although this document has been carefully reviewed, there may still be some phonetic and typographical errors, which are due to imperfections of the software program, and do not reflect any compromise in the patient's medical care. Time of 1ST Reevaluation: 01:18 Reevaluation 1ST: Unchanged Patient Education/Counseling: Diagnosis, Treatment, Prognosis, Need For Follow Up Family Education/Counseling: No Family Present Departure 1 Departure Time of Disposition: 01:23 Impression: Primary Impression: Intractable pain Additional Impressions: Right hip pain Right leg pain Disposition: 09 ADMITTED INPATIENT Condition: Fair Critical Care Note Critical Care Time?: No Stability Stability form required: No Heart Score Heart Score: Heart Score Response (Comments) Value History N/A 0 EKG N/A 0 Age N/A 0 Risk Factors N/A 0 Troponin N/A 0 Total 0 IRAIS MCNEIL PAC Apr 20, 2024 23:26
[2024-04-21] VITALS (10 sets, daily range): BP systolic 117–187; BP diastolic 61–103; PULSE 80–126; RESP 18–20; TEMP 98.1–100.1; O2SAT 91–100
[2024-04-21] MEDS: HYDROcodone-ACET 10/325MG TAB PO ONE (01:02)
[2024-04-21] MEDS: IBUPROFEN 600 MG TAB PO ONE (01:03)
--- NOTE | 2024-04-21 01:13 | DVH ---
CLINICAL HISTORY: Hip pain TECHNIQUE: CT of the pelvis was performed without intravenous contrast. This exam was performed acco rding to our departmental dose optimization program. Up-to-date CT equipment and radiation dose reduc tion techniques are utilized as appropriate. CTDI: [CTDIvol] DLP: 1361.3 WID: COMPARISON: None FINDINGS: Normal mineralization and alignment. The joint spaces are preserved. There is no acute fracture. The re is mild lower lumbar spondylosis. The muscle bundles about the pelvis are intact. Small bilatera l fat containing inguinal hernias. The pelvic small and large bowel loops are normal caliber. Normal appendix. Urinary bladder is moderately distended. The prostate and seminal vesicles are grossly unre markable. There is mild calcified plaque in the infrarenal abdominal aorta and bilateral iliac vessel s IMPRESSION: No acute fracture or traumatic malalignment.
[2024-04-21 01:33] LABS: Erythrocyte Sedimentation Rate 37 mm/hr (0-20)
[2024-04-21] MEDS: ONDANSETRON HCL 4 MG/2 ML VIAL IV ONE (10:36)
[2024-04-21] MEDS: MORPHINE SULFATE 4 MG/ML SYR/VIAL IV ONE (10:38)
--- NOTE | 2024-04-21 12:44 | DVHINCON2 ---
Date of service: Apr 21, 2024 Reason for Consultation Right hip pain and right leg numbness History of Present Illness Mr. Mejía is a 44 year old male who was brought to the hospital due to concerns of right hip pain that has been progressively worsening with associated right lower extremity numbness and tingling that has been occurring for approximately three days without a known injury, fall, or accident. Patient reports that he was started on oral steroids due to suspicion of a possible lupus diagnosis and was currently weaning off of them and was down to two pills a day when the pain suddenly began. Patient reports going to [facility] emergency room and was given morphine for his pain and medication for his blood pressure but was discharged but given his pain was not improving he decided to come into our emergency room. Patient is otherwise feeling well denying any other complaints or concerns such as chest pain, shortness of breath, nausea, vomiting, fever, chills. Past Medical History CHF, CVA, HTN Past Surgical History Denies Family History Noncontributory Social History Patient reports occasional alcohol intake as well as cigarette and marijuana smoking but denies any other illicit drug use Allergies: Coded Allergies: NO KNOWN ALLERGIES (Unverified , 01/02/23) Home Meds Active Scripts Cephalexin (Cephalexin) 125 Mg/5 Ml Lorelei, 5 ML PO BID, #100 ML Prov:DEWAYNE WEBB MD 04/13/24 Ibuprofen Micronized (Ibuprofen) 800 Mg Tab, 800 MG PO TID PRN, #60 TAB Prov:MIKE SIMENTAL 01/02/23 Cephalexin Monohydrate (Cephalexin) 500 Mg Cap, 1 CAP PO QID for 10 Days, #40 CAP Prov:MIKE SIMENTAL 01/02/23 Reported Medications Prednisone (Prednisone) 10 Mg Tab, 6 TAB PO DAILY 02/01/24 Chlorthalidone (Chlorthalidone) 25 Mg Tab, 1 TAB PO DAILY 02/01/24 Furosemide (Furosemide) 40 Mg Tab, 2 TAB PO DAILY 02/01/24 Losartan Potassium (Losartan Potassium) 100 Mg Tab, 1 TAB PO DAILY 02/01/24 Aspirin (Aspirin Adult Low Dose) 81 Mg Tab, 1 TAB PO DAILY 02/01/24 Spironolactone (Spironolactone) 50 Mg Tab, 1 TAB PO DAILY 02/01/24 Clonidine Hydrochloride (Clonidine Hcl) 0.1 Mg Tab, 1 TAB PO BID 02/01/24 Carvedilol (Carvedilol) 25 Mg Tab, 25 MG PO Q12HR for 30 Days, MG 02/01/24 Review of Systems 10 point review of systems negative except as per HPI Vital Signs Vital Signs Date Time Temp Pulse Resp B/P (MAP) Pulse Ox O2 Delivery O2 Flow Rate FiO2 04/21/24 11:08 83 18 153/86 04/21/24 10:30 98.1 98 98.1 04/21/24 08:00 Nasal Cannula* 2 28 Physical Exam General appearance: A&O x4 in no acute distress HEENT: Normal ENT inspection, pharynx normal, TMs normal Neck: Full range of motion, nontender, normal inspection Respiratory: Chest nontender, without accessory muscle use, no respiratory distress Cardiovascular: No edema, no JVD, normal peripheral pulses Gastrointestinal: Soft, nontender, no organomegaly. Musculoskeletal: right hip range of motion grossly limited with pain on movement, no calf tenderness, normal capillary refill, no pedal edema, neurovascularly intact with generalized numbness along right lower extremity. Skin: Dry, normal color, warm Lymphatic: No adenopathy Labs/Diagnostic Data Labs Test 04/20/24 22:13 Range/Units White Blood Count 14.2 H 4.4-10.8 10^3/uL Red Blood Count 3.69 L 4.5-5.90 10^6/uL Hemoglobin 11.4 L 13.5-17.5 g/dL Hematocrit 34.2 L 41.0-53.0 % Mean Corpuscular Volume 92.9 80.0-100.0 fL Mean Corpuscular Hemoglobin 30.8 28.0-32.0 pg Mean Corpuscular Hemoglobin Concent 33.2 32.0-36.0 g/dL Red Cell Distribution Width 15.8 H 11.8-14.3 % Platelet Count 191 140-450 10^3/uL Mean Platelet Volume 8.2 6.9-10.8 fL Neutrophils (%) (Auto) 75.0 37.0-80.0 % Lymphocytes (%) (Auto) 12.7 10.0-50.0 % Monocytes (%) (Auto) 11.0 0.0-12.0 % Eosinophils (%) (Auto) 0.4 0.0-7.0 % Basophils (%) (Auto) 0.9 0.0-2.0 % Neutrophils # (Auto) 10.7 H 1.6-8.6 10 ^3/uL Lymphocytes # (Auto) 1.8 0.4-5.4 10 ^3/uL Monocytes # (Auto) 1.6 H 0-1.3 10 ^3/uL Eosinophils # (Auto) 0.1 0-0.8 10 ^3/uL Basophils # (Auto) 0.1 0-0.2 10 ^3/uL Nucleated Red Blood Cells 0.1 % Erythrocyte Sedimentation Rate 37 H 0-20 mm/hr Sodium Level 141 136-145 mmol/L Potassium Level 3.5 3.5-5.1 mmol/L Chloride Level 104 98-107 mmol/L Carbon Dioxide Level 29 20-31 mmol/L Anion Gap 8 5-15 Blood Urea Nitrogen 47 H 9-23 mg/dL Creatinine 3.16 H 0.700-1.30 mg/dL Glomerular Filtration Rate Calc 24 >90 mL/min BUN/Creatinine Ratio 14.9 10.0-20.0 Serum Glucose 111 H 74-106 mg/dL Calcium Level 9.8 8.7-10.4 mg/dL Total Bilirubin 1.6 H 0.2-1.0 mg/dL Aspartate Amino Transferase (AST) < 8 L 13-40 U/L Alanine Aminotransferase (ALT) 18 7-40 U/L Alkaline Phosphatase 57 46-116 U/L C-Reactive Protein High Sensitivity 11.12 H <1.0 mg/dL Total Protein 7.4 5.7-8.2 g/dL Albumin 4.3 3.2-4.8 g/dL Right hip x-ray reviewed and demonstrated: There is no evidence of acute fracture or dislocation. The visualized joint space is well maintained. The alignment is anatomical. There is no radiopaque foreign body. Pelvic CT scan reviewed and demonstrated: No acute fracture or traumatic malalignment. Assessment Right hip pain and right lower extremity numbness Plan/Recommendation I had a lengthy discussion with the patient and after discussing his case and reviewing his imaging studies with Dr. Chong we have recommended an x-ray and MRI of his lumbar spine for further evaluation of possible lumbar spine stenosis given his symptoms and physical exam which were suspicious for lumbar spine ra diculopathy as well as unremarkable hip images. We will reconvene with the patient once the above imaging studies have been completed to discuss results and determine the course of action. He understood and agreed. Thank you for allowing us to participate in care of your patient. Plan discussed with: Patient TERESA FITZPATRICK Apr 21, 2024 12:44
--- NOTE | 2024-04-21 13:35 | DVH ---
INDICATION: Rule out lumbar stenosis COMPARISON: None TECHNIQUE: 2 views of the lumbar spine were obtained. FINDINGS: The lumbar vertebral alignment is normal. The intervertebral disc spaces are well-maintained. No significant facet arthropathy is noted. No acute fracture, vertebral compression deformity or aggressive osseous lesions. The paravertebral soft tissues are grossly unremarkable. IMPRESSION: No acute fracture.
[2024-04-21] MEDS ORDERED: HYDR200T36 PO (13:41)
[2024-04-21] MEDS ORDERED: MYCO500T3 PO (13:41)
[2024-04-21] MEDS ORDERED: CHOL50007 PO (13:41)
[2024-04-21] MEDS ORDERED: DOCUSATE SOD 100 MG CAP PO PRN (13:45)
[2024-04-21] MEDS ORDERED: ONDANSETRON HCL 4 MG/2 ML VIAL IV PRN (13:45)
[2024-04-21] MEDS ORDERED: MORPHINE SULFATE INJ 2 MG/ml SYRG IV PRN (13:45)
[2024-04-21] MEDS ORDERED: NITROGLYCERIN 0.4 MG SL TAB SL PRN (13:45)
[2024-04-21] MEDS: HYDROcodone-ACET 5/325MG TAB PO PRN (13:59)
[2024-04-21] MEDS: SODIUM CHLOR 0.9% PF (SALINE LOCK) 10ML VIAL/SYR IV SCH (14:00)
--- NOTE | 2024-04-21 14:13 | DVHHP2 ---
History of Present Illness Reason for Visit: Right hip pain History of Present Illness Wilman Mejía is a 44-year-old male with past medical history of sleep apnea, hypertension, CHF, chronic kidney disease, and lupus who comes in with complaint of right hip pain. Patient states he was seen recently for the same complaint, was diagnosed with lupus and given steroids. Patient was taking 60mg PO prednisone daily, he states it was helping. He was told to start tapering the dose down, when he reached 30 mg PO daily the pain returned, became unbearable, so he returned to the ER. 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 Renal/: Chronic renal insuff Past Surgical History: None Family History: None Smoke: <1 pack per day ALCOHOL: rare Drugs: Marijuana Lives: with Family Domestic Violence: Neg Review of Systems Constitutional: No: Fever, Chills, Sweats, Weakness, Malaise, Other Eyes: No: Pain, Vision change, Conjunctivae inflammation, Eyelid inflammation, Other, Redness ENT: No: Ear pain, Ear discharge, Nose pain, Nose discharge, Nose congestion, Mouth pain, Mouth swelling, Throat pain, Throat swelling, Other Respiratory: No: Cough, Dry, Shortness of breath, SOB with excertion, Wheezing, Hemoptysis, Pleuritic Pain, Sputum, Wheezing, Other Cardiovascular: No: Chest Pain, Palpitations, Orthopnea, Paroxysmal Noc. Dyspnea, Edema, Lt Headedness, Other Gastrointestinal: No: Nausea, Vomiting, Abdominal Pain, Diarrhea, Constipation, Melena, Hematochezia, Other Genitourinary: No Dysuria, No Frequency, No Incontinence, No Hematuria, No Retention, No Other Musculoskeletal: leg pain (right hip); No: other, neck pain, shoulder pain, arm pain, back pain, hand pain, foot pain Skin: No: Rash, Lesions, Jaundice, Bruising, Other Neurological: No: Weakness, Numbness, Incoordination, Change in speech, Confusion, Seizures, Other Allergies: Coded Allergies: NO KNOWN ALLERGIES (Unverified , 01/02/23) Medications Current Medications Medications Dose Ordered Sig/Yvan Route Start Time Stop Time Status Last Admin Dose Admin Sodium Chloride 10 ml Q8HR IV 04/21/24 14:00 Acetaminophen/ Hydrocodone Bitart 1 tab Q4HP PRN PO 04/21/24 13:45 Ondansetron HCl 4 mg Q4HP PRN IV 04/21/24 13:45 Docusate Sodium 100 mg BIDPRN PRN PO 04/21/24 13:45 Acetaminophen 650 mg Q6HP PRN PO 04/21/24 13:45 Morphine Sulfate 2 mg Q4HPRN PRN IV 04/21/24 13:45 Nitroglycerin 0.4 mg Q5MINP PRN SL 04/21/24 13:45 Morphine Sulfate 2 mg Q30M PRN IV 04/21/24 13:45 Aspirin 81 mg DAILY PO 04/22/24 10:00 Chlorthalidone 25 mg DAILY PO 04/22/24 10:00 UNV Clonidine HCl 0.1 mg BID PO 04/21/24 22:00 Furosemide 80 mg DAILY PO 04/22/24 10:00 Carvedilol 25 mg Q12HR PO 04/21/24 22:00 Hydroxychloroquine Sulfate 200 mg BID PO 04/21/24 22:00 UNV Mycophenolate Mofetil 500 mg BID PO 04/21/24 22:00 UNV Patient Own Medication 1 cap DAILY PO 04/22/24 10:00 UNV Exam Vital Signs Vital Signs Date Time Temp Pulse Resp B/P (MAP) Pulse Ox O2 Delivery O2 Flow Rate FiO2 04/21/24 13:25 98.9 94 18 166/103 (124) 100 98.9 04/21/24 08:00 Nasal Cannula* 2 28 General Appearance: Alert, Oriented X3, Cooperative, moderate distress HEENT: Atraumatic, PERRLA Respiratory: Clear to auscultation, Normal air movement Cardiovascular: Regular rate, Normal S1, Normal S2, Other (Uncontrolled hypertension) Abdominal: Normal bowel sounds, Soft, No tenderness Extremities: No clubbing, No cyanosis, Normal pulses, Other (Right hip pain, bilateral lower extremity edema) Skin: No rashes, No breakdown, No significant lesion Neuro: Normal gait, Normal speech, Strength at 5/5 X4 ext Psych/Mental Status: Mental status NL, Mood NL Labs/Xrays Labs Test 04/20/24 22:13 Range/Units White Blood Count 14.2 H 4.4-10.8 10^3/uL Red Blood Count 3.69 L 4.5-5.90 10^6/uL Hemoglobin 11.4 L 13.5-17.5 g/dL Hematocrit 34.2 L 41.0-53.0 % Mean Corpuscular Volume 92.9 80.0-100.0 fL Mean Corpuscular Hemoglobin 30.8 28.0-32.0 pg Mean Corpuscular Hemoglobin Concent 33.2 32.0-36.0 g/dL Red Cell Distribution Width 15.8 H 11.8-14.3 % Platelet Count 191 140-450 10^3/uL Mean Platelet Volume 8.2 6.9-10.8 fL Neutrophils (%) (Auto) 75.0 37.0-80.0 % Lymphocytes (%) (Auto) 12.7 10.0-50.0 % Monocytes (%) (Auto) 11.0 0.0-12.0 % Eosinophils (%) (Auto) 0.4 0.0-7.0 % Basophils (%) (Auto) 0.9 0.0-2.0 % Neutrophils # (Auto) 10.7 H 1.6-8.6 10 ^3/uL Lymphocytes # (Auto) 1.8 0.4-5.4 10 ^3/uL Monocytes # (Auto) 1.6 H 0-1.3 10 ^3/uL Eosinophils # (Auto) 0.1 0-0.8 10 ^3/uL Basophils # (Auto) 0.1 0-0.2 10 ^3/uL Nucleated Red Blood Cells 0.1 % Erythrocyte Sedimentation Rate 37 H 0-20 mm/hr Sodium Level 141 136-145 mmol/L Potassium Level 3.5 3.5-5.1 mmol/L Chloride Level 104 98-107 mmol/L Carbon Dioxide Level 29 20-31 mmol/L Anion Gap 8 5-15 Blood Urea Nitrogen 47 H 9-23 mg/dL Creatinine 3.16 H 0.700-1.30 mg/dL Glomerular Filtration Rate Calc 24 >90 mL/min BUN/Creatinine Ratio 14.9 10.0-20.0 Serum Glucose 111 H 74-106 mg/dL Calcium Level 9.8 8.7-10.4 mg/dL Total Bilirubin 1.6 H 0.2-1.0 mg/dL Aspartate Amino Transferase (AST) < 8 L 13-40 U/L Alanine Aminotransferase (ALT) 18 7-40 U/L Alkaline Phosphatase 57 46-116 U/L C-Reactive Protein High Sensitivity 11.12 H <1.0 mg/dL Total Protein 7.4 5.7-8.2 g/dL Albumin 4.3 3.2-4.8 g/dL TECHNIQUE: 3 radiographic views of the right hip were obtained. Comparison: None FINDINGS/IMPRESSION: There is no evidence of acute fracture or dislocation. The visualized joint space is well maintained. The alignment is anatomical. There is no radiopaque foreign body. CT of Pelvis FINDINGS: Normal mineralization and alignment. The joint spaces are preserved. There is no acute fracture. There is mild lower lumbar spondylosis. The muscle bundles about the pelvis are intact. Small bilateral fat containing inguinal hernias. The pelvic small and large bowel loops are normal caliber. Normal appendix. Urinary bladder is moderately distended. The prostate and seminal vesicles are grossly unremarkable. There is mild calcified plaque in the infrarenal abdominal aorta and bilateral iliac vessels IMPRESSION: No acute fracture or traumatic malalignment. Assessment/Plan Assessment/Plan Assessment: Right hip pain, Uncontrolled hypertension, Leukocytosis, Fevers, Acute on chronic kidney disease, Sleep apnea, CHF, Lupus, Plan: Admit to Tele, Orthopedic consult, MRI, Pain management, Home medications reconciled, Physical therapy eval once cleared by orthopedics, U/A and culture, Blood cultures, IV antibiotics, Plan discussed with: Patient My Orders Orders - YVETTE SCHNEIDER [employer] Procedure Category Date Status Time Admit ADMIT 04/21/24 Transmitted 13:31 Code Status CODE 04/21/24 Transmitted 13:31 Sodium Chloride Lock PHA 04/21/24 In Process (Saline Lock Ns) 14:00 Hydrocodone-Acet PHA 04/21/24 In Process 5/325mg Tab ([place] 13:45 Ondansetron Hcl PHA 04/21/24 In Process (Zofran) 13:45 Docusate Sodium PHA 04/21/24 In Process Capsule (Colace 13:45 Complete Blood Count LAB 04/22/24 Verified 04:00 Comprehensive LAB 04/22/24 Verified Metabolic Panel 04:00 Cardiac DIET 04/21/24 Transmitted Diet-2gna,Lofat,Lochol Dinner Condition: Serious YASHIRA 04/21/24 In Process 13:31 Acetaminophen Tablet PHA 04/21/24 In Process (Tylenol Tablet) 13:45 Morphine Sulfate PHA 04/21/24 In Process Injection 13:45 Nitroglycerin PHA 04/21/24 In Process Sublingual (Ntrostat 13:45 Morphine Sulfate PHA 04/21/24 In Process Injection 13:45 Stat Ekg For Chest [facility] 04/21/24 In Process Pain 13:31 Notify Of Changes [facility] 04/21/24 In Process From Base 13:31 Fixed Route Operator For [facility] 04/21/24 In Process 24 Hours 13:31 Emergency Dysrhythmia [facility] 04/21/24 In Process Protocol 13:31 Rhythm Strips Once [facility] 04/21/24 In Process Every Shift 13:31 Oxygen By Nasal RT 04/21/24 Transmitted Cannula 13:31 Aspirin Enteric PHA 04/22/24 In Process Coated Tablet 10:00 Chlorthalidone PHA 04/22/24 Logged (Chlorthalidone) 10:00 Clonidine Hcl Tablet PHA 04/21/24 In Process (Catapres Tablet) 22:00 Furosemide Tablet PHA 04/22/24 In Process (Lasix Tablet) 10:00 Carvedilol Tablet PHA 04/21/24 In Process (Coreg Tablet) 22:00 Hydroxychloroquine PHA 04/21/24 Logged Tablet (Plaquenil Tab 22:00 Mycophenolate Mofetil PHA 04/21/24 Logged (Cellcept) 22:00 (Nf) Cholecalciferol PHA 04/22/24 Logged (Vitamin D3) 10:00 Date of Service: Apr 21, 2024 Billing Provider: YVETTE SCHNEIDER Common Visit Codes: [id number] INP/OBS CARE (MOD) YVETTE SCHNEIDER Apr 21, 2024 14:13
[2024-04-21] MEDS: MORPHINE SULFATE INJ 2 MG/ml SYRG IV PRN (15:58)
[2024-04-21] MEDS: cloNIDine HCL 0.1 MG TAB PO PRN (16:42)
--- NOTE | 2024-04-21 16:58 | DVH ---
PROCEDURE: MRI LUMBAR SPINE WO CONTRAST INDICATION: Rule out lumbar stenosis Exam Date: 04/21/2024 04:00 PM COMPARISON: None TECHNIQUE: MRI lumbar spine without intravenous contrast. FINDINGS: The lumbar alignment is intact. There are degenerative endplate changes including modic endplate ch anges with anterior and lateral osteophytes throughout the lumbar spine. The visualized distal spinal cord and conus medullaris are within normal limits. The conus medullaris appears to terminate withi n normal limits. The visualized retroperitoneal and paraspinal soft tissues are unremarkable. The following axial levels are detailed below: T12-L1: Unremarkable. L1-L2: Unremarkable. L2-L3: Unremarkable. L3-L4: Unremarkable. L4-L5: There is a moderate circumferential disc bulge associated with mild to moderate bilateral ne uroforaminal stenosis. No significant central canal stenosis. L5-S1: There is a moderate circumferential disc bulge associated with moderate right and severe left neuroforaminal stenosis. No significant central canal stenosis. IMPRESSION: 1. Degenerative disease worst at L4-5 and L5-S1. No significant central canal stenosis. Severe left n eural foraminal stenosis L5-S1. HS:Y
[2024-04-21] MEDS: CARVEDILOL 12.5 MG TAB PO SCH (22:17)
[2024-04-21] MEDS: MYCOPHENOLATE 500 MG TAB PO SCH (22:18)
[2024-04-21] MEDS: hydrOXYchloroQUINE SULFATE 200 MG TAB PO SCH (22:18)
[2024-04-21] MEDS: cloNIDine HCL 0.1 MG TAB PO SCH (22:19)
[2024-04-21 23:07] LABS: Urine Amorphous Crystal FEW /hpf (None Seen); Urine Bacteria FEW /hpf (None Seen); Urine Blood TRACE /uL (Negative); Urine Clarity Clear (Clear); Urine Color Light-Yellow (Yellow); Urine Protein, UAD 2+ (Negative); Urine Specific Gravity 1.011 (1.001-1.035); Urine Urobilinogen Normal (Negative); Urine WBC 1 /hpf (0 - 3); Urine pH 5.5 (5.0-9.0)
[2024-04-22] VITALS (9 sets, daily range): BP systolic 100–162; BP diastolic 44–104; PULSE 80–109; RESP 16–20; TEMP 98.2–100.5; O2SAT 90–98
[2024-04-22 00:17] LABS: Rapid Influenza A Negative (Negative); Rapid Influenza B Negative (Negative)
[2024-04-22] MEDS: ACETAMINOPHEN 325 MG TAB PO PRN (04:34)
[2024-04-22 07:12] LABS: Alanine Aminotransferase 15 U/L (7-40); Albumin 3.8 g/dL (3.2-4.8); Alkaline Phosphatase 64 U/L (46-116); Anion Gap 9 (5-15); Aspartate Aminotransferase < 8 U/L (13-40); BUN/Creatinine Ratio 11.7 (10.0-20.0); Blood Urea Nitrogen 50 mg/dL (9-23); Calcium 9.1 mg/dL (8.7-10.4); Carbon Dioxide 25 mmol/L (20-31); Chloride 102 mmol/L (98-107); Glucose 100 mg/dL (74-106); Potassium 4.1 mmol/L (3.5-5.1); Sodium 136 mmol/L (136-145)
[2024-04-22 07:13] LABS: Total Protein 6.3 g/dL (5.7-8.2)
[2024-04-22 07:29] LABS: Basophils # (auto) 0.1 10 ^3/uL (0-0.2); Basophils % (auto) 0.5 % (0.0-2.0); Eosinophils # (auto) 0.1 10 ^3/uL (0-0.8); Eosinophils % (auto) 0.6 % (0.0-7.0); Hematocrit 29.3 % (41.0-53.0); Hemoglobin 9.7 g/dL (13.5-17.5); Lymphocytes % (auto) 15.4 % (10.0-50.0); Mean Corpuscular Hemoglobin 31.1 pg (28.0-32.0); Mean Corpuscular Hgb Conc. 33.2 g/dL (32.0-36.0); Mean Corpuscular Volume 93.7 fL (80.0-100.0); Monocytes # (auto) 1.7 10 ^3/uL (0-1.3); Monocytes % (auto) 13.1 % (0.0-12.0); Neutrophils # (auto) 9.3 10 ^3/uL (1.6-8.6); Neutrophils % (auto) 70.4 % (37.0-80.0); Nucleated Red Blood Cells % 0.1 %; Platelet Count (auto) 162 10^3/uL (140-450); Red Blood Cells 3.13 10^6/uL (4.5-5.90); Red Cell Distribution Width 16.1 % (11.8-14.3); White Blood Cell 13.2 10^3/uL (4.4-10.8)
[2024-04-22] MEDS: CHLORTHALIDONE 25 MG TAB PO SCH (10:00)
[2024-04-22] MEDS: FUROSEMIDE 40 MG TAB PO SCH (10:00)
[2024-04-22] MEDS: cefTRIAXone 1GM/50ML D5W 50 ML IV SCH (10:01)
[2024-04-22] MEDS: predniSONE 20 MG TAB PO SCH (10:02)
[2024-04-22] MEDS: ASPirin-EC 81 mg tab PO SCH (10:03)
[2024-04-22] MEDS: CHOLECALCIFEROL (VITD3) 1,000UNIT=25mCg TAB PO SCH (10:04)
--- NOTE | 2024-04-22 11:23 | DVHPN2 ---
Subjective The patient seen and examined at bedside. No complains today. Reviewed: Care Plan, H&P, Labs, Medications, Previous Orders, Radiology Changes from previous H/P or p: No Changes Eyes: No Pain, No Vision change, No Conjunctivae inflammation, No Eyelid inflammation, No Other, No Redness ENT: No Ear pain, No Ear discharge, No Nose pain, No Nose discharge, No Nose congestion, No Mouth pain, No Mouth swelling, No Throat pain, No Throat swelling, No Other Cardiovascular: No Chest Pain, No Palpitations, No Orthopnea, No Paroxysmal Noc. Dyspnea, No Edema, No Lt Headedness, No Other Respiratory: No Cough, No Dry, No Shortness of breath, No SOB with excertion, No Wheezing, No Hemoptysis, No Pleuritic Pain, No Sputum, No Other Gastrointestinal: No Nausea, No Vomiting, No Abdominal Pain, No Diarrhea, No Constipation, No Melena, No Hematochezia, No Other Genitourinary: No Dysuria, No Frequency, No Incontinence, No Hematuria, No Retention, No Other Musculoskeletal: No other, No neck pain, No shoulder pain, No arm pain, No back pain, No hand pain; leg pain (right hip); No foot pain Skin: No Rash, No Lesions, No Jaundice, No Bruising, No Other Objective Vitals Vital Signs Date Time Temp Pulse Resp B/P (MAP) Pulse Ox O2 Delivery O2 Flow Rate FiO2 04/22/24 10:00 107 100/61 04/22/24 09:01 98.7 18 90 98.7 04/22/24 08:00 Room Air* 0 21 Intake/Output Intake and Output 04/22/24 07:00 Intake Total 1100 ml Output Total 1475 ml Balance -375 ml Intake Oral 1100 ml Output Urine Total 1475 ml # Voids 3 General Appearance: Alert, Oriented X3, Cooperative, No acute distress HEENT: Atraumatic, PERRLA, EOMI Neck: Supple Lungs: Clear to auscultation, Normal air movement Cardiovascular: Regular rate, Normal S1, Normal S2, No murmurs, Gallops, Rubs Abdomen: Normal bowel sounds, Soft, No tenderness Neuro: Cranial nerves 3-12 NL Psych/Mental Status: Mental status NL Medications Current Medications Medications Dose Ordered Sig/Yvan Route Start Time Stop Time Status Last Admin Dose Admin Sodium Chloride 10 ml Q8HR IV 04/21/24 14:00 04/22/24 05:33 10 ML Acetaminophen/ Hydrocodone Bitart 1 tab Q4HP PRN PO 04/21/24 13:45 04/22/24 10:13 1 TAB Ondansetron HCl 4 mg Q4HP PRN IV 04/21/24 13:45 Docusate Sodium 100 mg BIDPRN PRN PO 04/21/24 13:45 Acetaminophen 650 mg Q6HP PRN PO 04/21/24 13:45 04/22/24 04:34 650 MG Morphine Sulfate 2 mg Q4HPRN PRN IV 04/21/24 13:45 04/22/24 05:30 2 MG Nitroglycerin 0.4 mg Q5MINP PRN SL 04/21/24 13:45 Morphine Sulfate 2 mg Q30M PRN IV 04/21/24 13:45 Aspirin 81 mg DAILY PO 04/22/24 10:00 04/22/24 10:03 81 MG Chlorthalidone 25 mg DAILY PO 04/22/24 10:00 Clonidine HCl 0.1 mg BID PO 04/21/24 22:00 04/21/24 22:19 0.1 MG Furosemide 80 mg DAILY PO 04/22/24 10:00 Carvedilol 25 mg Q12HR PO 04/21/24 22:00 04/21/24 22:17 25 MG Hydroxychloroquine Sulfate 200 mg BID PO 04/21/24 22:00 04/22/24 10:03 200 MG Mycophenolate Mofetil 500 mg BID PO 04/21/24 22:00 04/22/24 10:02 500 MG Cholecalciferol 5,000 unit DAILY PO 04/22/24 10:00 04/22/24 10:04 5,000 UNIT Prednisone 20 mg DAILY PO 04/22/24 10:00 04/22/24 10:02 20 MG Clonidine HCl 0.1 mg Q4HP PRN PO 04/21/24 16:00 04/21/24 16:42 0.1 MG Ceftriaxone Sodium 50 ml @ 100 mls/hr DAILY@09 IV 04/22/24 09:00 04/22/24 10:01 100 MLS/HR Laboratory Results Laboratory Tests 04/22/24 05:29 Chemistry Test 04/22/24 05:29 Albumin 3.8 g/dL (3.2-4.8) Calcium Level 9.1 mg/dL (8.7-10.4) Total Protein 6.3 g/dL (5.7-8.2) LFT Test 04/22/24 05:29 Alanine Aminotransferase (ALT) 15 U/L (7-40) Alkaline Phosphatase 64 U/L (46-116) Aspartate Amino Transferase (AST) < 8 U/L (13-40) L Total Bilirubin 2.0 mg/dL (0.2-1.0) H Urinalysis Test 04/21/24 22:48 Urine Color Light-yellow (Yellow) Urine Clarity Clear (Clear) Urine pH 5.5 (5.0-9.0) Urine Specific [place] 1.011 (1.001-1.035) Urine Protein 2+ (Negative) H Urine Ketones Negative (Negative) Urine Blood Trace /uL (Negative) H Urine Nitrite Negative (Negative) Urine Bilirubin Negative (Negative) Urine Urobilinogen Normal mg/dL (Negative) Urine Leukocyte Esterase Negative /uL (Negative) Urine RBC 1 /hpf (0 - 3) Urine WBC 1 /hpf (0 - 3) Urine Squamous Epithelial Cells Few /hpf (<5) Urine Amorphous Crystals Few /hpf (None Seen) Urine Bacteria Few /hpf (None Seen) H Urine Glucose Normal mg/dL (Normal) Labs and/or images reviewed: Labs reviewed by me Assessment/Plan Assessment/Plan Right hip pain, Uncontrolled hypertension, Leukocytosis, Fevers, Acute on chronic kidney disease, Sleep apnea, CHF, SLE Morbid obesity Plan: Continuing current management. Continuing with pain medication. Waiting for orthopedic surgeon to see the patient and MRI report. Plan discussed with: Patient Date of Service: Apr 22, 2024 Billing Provider: BYRON JEAN MD Common Visit Codes: [id number] INP/OBS CARE(HIGH) BYRON JEAN MD Apr 22, 2024 11:23
--- NOTE | 2024-04-22 11:26 | DVHPN2 ---
Progress Note - Dictate Date Seen: Apr 22, 2024 Medical Necessity Reason Pt with a Central, PICC or Fol: No Subjective Patient was lying comfortably in bed during my evaluation reports no improvement of his pain to his right hip and right lower extremity numbness since my last evaluation. Patient reports that he has not yet gotten up out of bed due to the pain. Patient is otherwise feeling well denying any other complaints or concerns during my evaluation. vital signs Vital Sign Date Time Temp Pulse Resp B/P (MAP) Pulse Ox O2 Delivery O2 Flow Rate FiO2 04/22/24 10:00 107 100/61 04/22/24 09:01 98.7 18 90 98.7 04/22/24 08:00 Room Air* 0 21 Total Intake and Output 04/21/24 04/21/24 04/22/24 15:00 23:00 07:00 Intake Total 400 ml 700 ml Output Total 750 ml 525 ml 200 ml Balance -750 ml -125 ml 500 ml medications Current Medications Medications Dose Ordered Sig/Yvan Route Start Time Stop Time Status Last Admin Dose Admin Sodium Chloride 10 ml Q8HR IV 04/21/24 14:00 04/22/24 05:33 10 ML Acetaminophen/ Hydrocodone Bitart 1 tab Q4HP PRN PO 04/21/24 13:45 04/22/24 10:13 1 TAB Ondansetron HCl 4 mg Q4HP PRN IV 04/21/24 13:45 Docusate Sodium 100 mg BIDPRN PRN PO 04/21/24 13:45 Acetaminophen 650 mg Q6HP PRN PO 04/21/24 13:45 04/22/24 04:34 650 MG Morphine Sulfate 2 mg Q4HPRN PRN IV 04/21/24 13:45 04/22/24 05:30 2 MG Nitroglycerin 0.4 mg Q5MINP PRN SL 04/21/24 13:45 Morphine Sulfate 2 mg Q30M PRN IV 04/21/24 13:45 Aspirin 81 mg DAILY PO 04/22/24 10:00 04/22/24 10:03 81 MG Chlorthalidone 25 mg DAILY PO 04/22/24 10:00 Clonidine HCl 0.1 mg BID PO 04/21/24 22:00 04/21/24 22:19 0.1 MG Furosemide 80 mg DAILY PO 04/22/24 10:00 Carvedilol 25 mg Q12HR PO 04/21/24 22:00 04/21/24 22:17 25 MG Hydroxychloroquine Sulfate 200 mg BID PO 04/21/24 22:00 04/22/24 10:03 200 MG Mycophenolate Mofetil 500 mg BID PO 04/21/24 22:00 04/22/24 10:02 500 MG Cholecalciferol 5,000 unit DAILY PO 04/22/24 10:00 04/22/24 10:04 5,000 UNIT Prednisone 20 mg DAILY PO 04/22/24 10:00 04/22/24 10:02 20 MG Clonidine HCl 0.1 mg Q4HP PRN PO 04/21/24 16:00 04/21/24 16:42 0.1 MG Ceftriaxone Sodium 50 ml @ 100 mls/hr DAILY@09 IV 04/22/24 09:00 04/22/24 10:01 100 MLS/HR objective General appearance: A&O x4 in no acute distress HEENT: Normal ENT inspection, pharynx normal, TMs normal Neck: Full range of motion, nontender, normal inspection Respiratory: Chest nontender, without accessory muscle use, no respiratory distress Cardiovascular: No edema, no JVD, normal peripheral pulses Gastrointestinal: Soft, nontender, no organomegaly. Musculoskeletal: right hip range of motion grossly limited with pain on movement, no calf tenderness, normal capillary refill, no pedal edema, neurovascularly intact with generalized numbness along right lower extremity. Skin: Dry, normal color, warm Lymphatic: No adenopathy Lumbar spine x-ray reviewed and demonstrated: The lumbar vertebral alignment is normal. The intervertebral disc spaces are well-maintained. No significant facet arthropathy is noted. No acute fracture, vertebral compression deformity or aggressive osseous lesions. The paravertebral soft tissues are grossly unremarkable. Lumbar spine MRI reviewed and demonstrated: The lumbar alignment is intact. There are degenerative endplate changes including modic endplate changes with anterior and lateral osteophytes throughout the lumbar spine. The visualized distal spinal cord and conus medullaris are within normal limits. The conus medullaris appears to terminate within normal limits. The visualized retroperitoneal and paraspinal soft tissues are unremarkable. The following axial levels are detailed below: T12-L1: Unremarkable. L1-L2: Unremarkable. L2-L3: Unremarkable. L3-L4: Unremarkable. L4-L5: There is a moderate circumferential disc bulge associated with mild to moderate bilateral neuroforaminal stenosis. No significant central canal stenosis. L5-S1: There is a moderate circumferential disc bulge associated with moderate right and severe left neuroforaminal stenosis. No significant central canal stenosis. laboratory and microbiology Laboratory Tests 04/22/24 05:29 Test 04/22/24 05:29 Range/Units Serum Glucose 100 74-106 mg/dL Assessment/Plan Right hip pain and right lower extremity numbness I had a lengthy discussion with the patient and after discussing his case and reviewing his imaging studies with Dr. Chong we have recommended against any surgical intervention at this time as we believe his symptoms may be caused by the lumbar spine stenosis as well as neural foraminal stenosis seen on lumbar spine MRI. I instructed the patient to follow up with our office to see Dr. Quiñones I will orthopedic peer specialist for further evaluation and to discuss treatment options. He understood and agreed. Thank you for allowing us to participate in the care of your patient. Plan discussed with: Patient TERESA FITZPATRICK Apr 22, 2024 11:26
[2024-04-23] VITALS (7 sets, daily range): BP systolic 129–148; BP diastolic 66–99; PULSE 72–88; RESP 12–23; TEMP 97.4–98.1; O2SAT 23–99
--- NOTE | 2024-04-23 11:23 | DVHPN2 ---
Eyes: No Pain, No Vision change, No Conjunctivae inflammation, No Eyelid inflammation, No Other, No Redness ENT: No Ear pain, No Ear discharge, No Nose pain, No Nose discharge, No Nose congestion, No Mouth pain, No Mouth swelling, No Throat pain, No Throat swelling, No Other Cardiovascular: No Chest Pain, No Palpitations, No Orthopnea, No Paroxysmal Noc. Dyspnea, No Edema, No Lt Headedness, No Other Respiratory: No Cough, No Dry, No Shortness of breath, No SOB with excertion, No Wheezing, No Hemoptysis, No Pleuritic Pain, No Sputum, No Other Gastrointestinal: No Nausea, No Vomiting, No Abdominal Pain, No Diarrhea, No Constipation, No Melena, No Hematochezia, No Other Genitourinary: No Dysuria, No Frequency, No Incontinence, No Hematuria, No Retention, No Other Musculoskeletal: No other, No neck pain, No shoulder pain, No arm pain, No back pain, No hand pain; leg pain (right hip); No foot pain Skin: No Rash, No Lesions, No Jaundice, No Bruising, No Other Objective Vitals Vital Signs Date Time Temp Pulse Resp B/P (MAP) Pulse Ox O2 Delivery O2 Flow Rate FiO2 04/23/24 10:32 77 148/79 04/23/24 09:00 97.8 23 23 97.8 04/22/24 20:20 Room Air* 0 N/A Bi-Pap+ Intake/Output Intake and Output 04/23/24 07:00 Intake Total 1450 ml Output Total 3000 ml Balance -1550 ml Intake Oral 1400 ml IV Total 50 ml Output Urine Total 3000 ml # Voids 2 Medications Current Medications Medications Dose Ordered Sig/Yvan Route Start Time Stop Time Status Last Admin Dose Admin Sodium Chloride 10 ml Q8HR IV 04/21/24 14:00 04/23/24 05:01 10 ML Acetaminophen/ Hydrocodone Bitart 1 tab Q4HP PRN PO 04/21/24 13:45 04/22/24 10:13 1 TAB Ondansetron HCl 4 mg Q4HP PRN IV 04/21/24 13:45 Docusate Sodium 100 mg BIDPRN PRN PO 04/21/24 13:45 Acetaminophen 650 mg Q6HP PRN PO 04/21/24 13:45 04/22/24 04:34 650 MG Morphine Sulfate 2 mg Q4HPRN PRN IV 04/21/24 13:45 04/22/24 17:44 2 MG Nitroglycerin 0.4 mg Q5MINP PRN SL 04/21/24 13:45 Morphine Sulfate 2 mg Q30M PRN IV 04/21/24 13:45 Aspirin 81 mg DAILY PO 04/22/24 10:00 04/23/24 10:30 81 MG Chlorthalidone 25 mg DAILY PO 04/22/24 10:00 04/23/24 10:30 25 MG Clonidine HCl 0.1 mg BID PO 04/21/24 22:00 04/23/24 10:31 0.1 MG Furosemide 80 mg DAILY PO 04/22/24 10:00 04/23/24 10:31 80 MG Carvedilol 25 mg Q12HR PO 04/21/24 22:00 04/23/24 10:32 25 MG Hydroxychloroquine Sulfate 200 mg BID PO 04/21/24 22:00 04/23/24 10:30 200 MG Mycophenolate Mofetil 500 mg BID PO 04/21/24 22:00 04/23/24 10:30 500 MG Cholecalciferol 5,000 unit DAILY PO 04/22/24 10:00 04/23/24 10:30 5,000 UNIT Prednisone 20 mg DAILY PO 04/22/24 10:00 04/23/24 10:31 20 MG Clonidine HCl 0.1 mg Q4HP PRN PO 04/21/24 16:00 04/22/24 18:14 0.1 MG Ceftriaxone Sodium 50 ml @ 100 mls/hr DAILY@09 IV 04/22/24 09:00 04/23/24 09:24 100 MLS/HR Laboratory Results Laboratory Tests 04/22/24 05:29 Urinalysis Test 04/21/24 22:48 Urine Color Light-yellow (Yellow) Urine Clarity Clear (Clear) Urine pH 5.5 (5.0-9.0) Urine Specific [place] 1.011 (1.001-1.035) Urine Protein 2+ (Negative) H Urine Ketones Negative (Negative) Urine Blood Trace /uL (Negative) H Urine Nitrite Negative (Negative) Urine Bilirubin Negative (Negative) Urine Urobilinogen Normal mg/dL (Negative) Urine Leukocyte Esterase Negative /uL (Negative) Urine RBC 1 /hpf (0 - 3) Urine WBC 1 /hpf (0 - 3) Urine Squamous Epithelial Cells Few /hpf (<5) Urine Amorphous Crystals Few /hpf (None Seen) Urine Bacteria Few /hpf (None Seen) H Urine Glucose Normal mg/dL (Normal) Microbiology Microbiology Date/Time Source Procedure Growth Status 04/21/24 22:48 Voided Urine Urine Culture - Preliminary Resulted 04/21/24 22:45 Nose MRSA Screen - Final Complete 04/21/24 22:35 Blood Blood Culture - Preliminary NO GROWTH AFTER 24 HOURS OF INCUBATION. Resulted BYRON JEAN MD Apr 23, 2024 11:23
[2024-04-23] MEDS ORDERED: HYDR-4902 PO (12:03)
--- NOTE | 2024-04-23 12:05 | DVHDS2 ---
Discharge Summary Date of Admission Apr 21, 2024 at 13:31 Date of Discharge: Apr 23, 2024 Admitting Diagnosis Right hip pain, Uncontrolled hypertension, Leukocytosis, Fevers, Acute on chronic kidney disease, Sleep apnea, CHF, SLE Morbid obesity Labs/Diagnostic Data: Laboratory Results Test 04/22/24 05:29 04/21/24 22:48 04/21/24 22:45 04/20/24 22:13 White Blood Count 13.2 10^3/uL (4.4-10.8) Red Blood Count 3.13 10^6/uL (4.5-5.90) Hemoglobin 9.7 g/dL (13.5-17.5) Hematocrit 29.3 % (41.0-53.0) Mean Corpuscular Volume 93.7 fL (80.0-100.0) Mean Corpuscular Hemoglobin 31.1 pg (28.0-32.0) Mean Corpuscular Hemoglobin Concent 33.2 g/dL (32.0-36.0) Red Cell Distribution Width 16.1 % (11.8-14.3) Platelet Count 162 10^3/uL (140-450) Mean Platelet Volume 9.0 fL (6.9-10.8) Neutrophils (%) (Auto) 70.4 % (37.0-80.0) Lymphocytes (%) (Auto) 15.4 % (10.0-50.0) Monocytes (%) (Auto) 13.1 % (0.0-12.0) Eosinophils (%) (Auto) 0.6 % (0.0-7.0) Basophils (%) (Auto) 0.5 % (0.0-2.0) Neutrophils # (Auto) 9.3 10 ^3/uL (1.6-8.6) Lymphocytes # (Auto) 2.0 10 ^3/uL (0.4-5.4) Monocytes # (Auto) 1.7 10 ^3/uL (0-1.3) Eosinophils # (Auto) 0.1 10 ^3/uL (0-0.8) Basophils # (Auto) 0.1 10 ^3/uL (0-0.2) Nucleated Red Blood Cells 0.1 % Sodium Level 136 mmol/L (136-145) Potassium Level 4.1 mmol/L (3.5-5.1) Chloride Level 102 mmol/L (98-107) Carbon Dioxide Level 25 mmol/L (20-31) Anion Gap 9 (5-15) Blood Urea Nitrogen 50 mg/dL (9-23) Creatinine 4.29 mg/dL (0.700-1.30) Glomerular Filtration Rate Calc 17 mL/min (>90) BUN/Creatinine Ratio 11.7 (10.0-20.0) Serum Glucose 100 mg/dL (74-106) Calcium Level 9.1 mg/dL (8.7-10.4) Total Bilirubin 2.0 mg/dL (0.2-1.0) Aspartate Amino Transferase (AST) < 8 U/L (13-40) Alanine Aminotransferase (ALT) 15 U/L (7-40) Alkaline Phosphatase 64 U/L (46-116) Total Protein 6.3 g/dL (5.7-8.2) Albumin 3.8 g/dL (3.2-4.8) Urine Color Light-yellow (Yellow) Urine Clarity Clear (Clear) Urine pH 5.5 (5.0-9.0) Urine Specific [place] 1.011 (1.001-1.035) Urine Protein 2+ (Negative) Urine Ketones Negative (Negative) Urine Blood Trace /uL (Negative) Urine Nitrite Negative (Negative) Urine Bilirubin Negative (Negative) Urine Urobilinogen Normal mg/dL (Negative) Urine Leukocyte Esterase Negative /uL (Negative) Urine RBC 1 /hpf (0 - 3) Urine WBC 1 /hpf (0 - 3) Urine Squamous Epithelial Cells Few /hpf (<5) Urine Amorphous Crystals Few /hpf (None Seen) Urine Bacteria Few /hpf (None Seen) Urine Glucose Normal mg/dL (Normal) Influenza Type A Antigen Negative (Negative) Influenza Type B Antigen Negative (Negative) Erythrocyte Sedimentation Rate 37 mm/hr (0-20) C-Reactive Protein High Sensitivity 11.12 mg/dL (<1.0) Other Laboratory Tests 04/22/24 05:29 Brief Hx & Hospital Course: This is a 44 years old male with past medical history of obstructive sleep apnea, hypertension, congestive heart failure, chronic kidney disease stage 3, SLE, morbid obesity come to emergency department because severe right hip pain. The patient said that he recently had seen in the hospital for the same complaint . He was diagnosed with lupus and was given steroid. Patient was taking 60 mg of prednisone daily and taper it down to 30 mg daily now. The patient's hip pain become unbearable so he decided to come to hospital for further evaluation. In the hospital imaging was done. Hip Xay showed: There is no evidence of acute fracture or dislocation. The visualized joint space is well maintained. The alignment is anatomical.There is no radiopaque foreign body. CT right hip showed: No acute fracture or traumatic malalignment. XRAY of lumbar spine showed: No acute fracture. MRI of lumbar spine showed: Degenerative disease worst at L4-5 and L5-S1. No significant central canal stenosis. Severe left neural foraminal stenosis L5-S1. Orthopedic surgeon see the patient and recommend no hip surgery intervention. They recommend outpatient spine surgery evaluation due to his severe lumbar stenosis as well as neural foraminal stenosis seen on lumbar spine MRI. I instructed the patient to follow up with our office to see Dr. Quiñones , orthopedic manufacturing specialist for further evaluation and to discuss treatment options. I also request physical therapy evaluation. Per physical therapy the patient needs to walk with a walker. I discussed with director of casework and request for a bariatric front wheel walker for the patient. Advised the patient to follow up with primary care physician 1-2 weeks. Follow up with orthopedic manufacturing specialist, Dr. Quiñones, as outpatient. Activity as tolerated. Diet per home diet. I also advised the patient to exercise and lose weight, cut down his portion of food as it can help for his spinal stenosis and to reduce pain. I sent the patient home with [place] as needed for pain control. Physical exam: HEENT: Normocephalic atraumatic pupils equal react to light and accommodation. Extraocular muscles intact, conjunctiva pink, oropharynx moist, no thrush, no exudate. Lymphatic: No lymphadenopathy Cardiovascular exam: S1, S2 was heard. No murmurs, rubs, gallops Lung: Clear on auscultation bilaterally, no wheeze, rale, rhonchi. GI: Abdominal soft, nondistended, nontenderness, positive bowel sounds. Extremity: No crepitus, cyanosis, edema. Pedal pulses present bilateral. Full range of motion. Skin: Normal turgor, no rash. Psych: Alert, oriented x3. Neurology: No focal deficits, cranial nerve II to XII grossly intact. Condition at Discharge: Stable Final Diagnosis/Problems List Right hip pain, Uncontrolled hypertension, Leukocytosis, Fevers, Acute on chronic kidney disease, Sleep apnea, CHF, SLE Morbid obesity Discharge Disposition: Home Discharge Instruct/Medications Diet: Cardiac 2g Na,low cholest Activity: No Restrictions, As Tolerated Follow Up/Referral: pcp 1-2 weeks Medications: resume home meds norco 5/325 one tab [id number] Discharge Statement: "Patient was advised to return to the ER or call 911 if any headaches, dizziness, shortness of breath, chest pain, abdominal pain, bleeding, fevers, or worsening of medical condition. Patient was counseled about treatment plan, medications, possible side effects, patientverbalized understanding. All questions were answered to the best of my ability. This discharge took greater then 30 minutes in planning, reviewing documentation, counseling the patient, and discussing with other team members." ASSESSMENT ASSESSMENT Assessment hip pain Date of Service: Apr 23, 2024 Billing Provider: BYRON JEAN MD Common Visit Codes: 07613-XZX/OBS DISCH DAY >30min BYRON JEAN MD Apr 23, 2024 12:05
== END 2024-04-23 19:47 | disposition home or self-care (01) | DRG 346 ==
LOC: ER 21:33 → TELE 04-21 13:31 → TELE-WESTW 04-21 13:41
PROVIDERS: ADMIT Nurse Practitioner Family; ATTEND Internal Medicine
PROC: 5A09357 Assistance with Respiratory Ventilation, Less than 24 Consecutive Hours, Continuous Positive Airway Pressure (ICD-10-PCS; principal; 2024-04-22)
DX: M32.9 Systemic lupus erythematosus, unspecified (principal); N17.9 Acute kidney failure, unspecified; I13.0 Hypertensive heart and chronic kidney disease with heart failure and stage 1 through stage 4 chronic kidney disease, or unspecified chronic kidney disease; I50.9 Heart failure, unspecified; M79.604 Pain in right leg; I16.0 Hypertensive urgency; D72.829 Elevated white blood cell count, unspecified; G47.30 Sleep apnea, unspecified; N18.9 Chronic kidney disease, unspecified; Z79.2 Long term (current) use of antibiotics; Z79.899 Other long term (current) drug therapy; Z79.82 Long term (current) use of aspirin; N18.30 Chronic kidney disease, stage 3 unspecified; M48.07 Spinal stenosis, lumbosacral region; E66.01 Morbid (severe) obesity due to excess calories; Z68.42 Body mass index [BMI] 45.0-49.9, adult
CPT/HCPCS: 36415; 72100; 72148; 72192; 73502; 80053; 81001; 85025; 85652; 86141; 87040; 87081; 87086; 87804; 97163; G0378; J2405; J7517

== ENCOUNTER 2024-04-28 09:13 | Emergency (ER) | payer MEDICAID, OTHER ==
[~2024-04-28] VITALS: Ht 188 cm; Wt 159.8 kg
[~2024-04-28 09:13] MED LIST changes: -CEPH125S PO; -CEPH500C PO; +CHOL50007 PO; +HYDR-4902 PO; +HYDR200T36 PO; -IBUP-1455 PO; -LOSA-535 PO; +MYCO500T3 PO; -SPIR50TA5 PO
--- NOTE | 2024-04-28 09:35 | ED.PDOC ---
History of Present Illness HPI Comments 44-year-old male with PMHx CHF, HTN presents with a chief complaint of pain to penis and constant erection x 4 hours. Patient mentions that he got up to use the restroom and had an erection, but states that he believed it was normal and would subside on its own, but reports that it developed pain and has not gone down. Patient mentions that this has happened to him before and had to have his penis drained. Patient is also hypertensive in triage at 225/151, but reports that he took his HTN medication. No other symptoms or modifying factors present at this time. Chief Complaint: Penile Problem Time Seen by MD: 09:27 Primary Care Provider: DR RODRÍGUEZ Reviewed Notes: Medications, Allergies Allergies: Coded Allergies: NO KNOWN ALLERGIES (Unverified , 01/02/23) Home Meds Active Scripts Hydrocodone-Acetaminophen (Hydrocodone Bitartrate/AC 5-325 mg) 1 Tab Tab, 1 TAB PO Q4HP PRN, #20 TAB Prov:BYRON JEAN MD 04/23/24 Reported Medications Hydroxychloroquine Sulfate (Hydroxychloroquine Sulfat) 200 Mg Tab, 1 TAB PO BID 04/21/24 Cholecalciferol (VITAMIN D3) 5,000 Unit Cap, 1 CAP PO DAILY 04/21/24 Mycophenolate Mofetil (Mycophenolate Mofetil) 500 Mg Tab, 1 TAB PO BID 04/21/24 Prednisone (Prednisone) 10 Mg Tab, 6 TAB PO DAILY 02/01/24 Chlorthalidone (Chlorthalidone) 25 Mg Tab, 1 TAB PO DAILY 02/01/24 Furosemide (Furosemide) 40 Mg Tab, 2 TAB PO DAILY 02/01/24 Aspirin (Aspirin Adult Low Dose) 81 Mg Tab, 1 TAB PO DAILY 02/01/24 Clonidine Hydrochloride (Clonidine Hcl) 0.1 Mg Tab, 1 TAB PO BID 02/01/24 Carvedilol (Carvedilol) 25 Mg Tab, 25 MG PO Q12HR for 30 Days, MG 02/01/24 Discontinued Reported Medications Losartan Potassium (Losartan Potassium) 100 Mg Tab, 1 TAB PO DAILY 02/01/24 Spironolactone (Spironolactone) 50 Mg Tab, 1 TAB PO DAILY 02/01/24 Discontinued Scripts Cephalexin (Cephalexin) 125 Mg/5 Ml [place]lei, 5 ML PO BID, #100 ML Prov:JON,DEWAYNE B MD 04/13/24 Ibuprofen Micronized (Ibuprofen) 800 Mg Tab, 800 MG PO TID PRN, #60 TAB Prov:MIKE SIMENTAL 01/02/23 Cephalexin Monohydrate (Cephalexin) 500 Mg Cap, 1 CAP PO QID for 10 Days, #40 CAP Prov:MIKE SIMENTAL 01/02/23 Information Source: Patient Mode of Arrival: Ambulatory Severity: Moderate Timing: Hours Duration: Since onset Prehospital treatment: None Past Medical History PAST MEDICAL HISTORY: CHF, CVA, HTN Surgical History: Denies all surgeries Family History Family History: Reviewed,noncontributory to illness Social History Smoker: Cigarettes Alcohol: Occasionally Drugs: Marijuana Lives In: Home Constitutional: denies: chills, diaphoresis, fatigue, fever, malaise, sweats, weakness, others EENTM: denies: blurred vision, double vision, ear bleeding, ear discharge, ear drainage, ear pain, ear ringing, eye pain, eye redness, hearing loss, mouth pain, mouth swelling, nasal discharge, nose bleeding, nose congestion, nose pain, photophobia, tearing, throat pain, throat swelling, voice changes, others Respiratory: denies: cough, hemoptysis, orthopnea, SOB at rest, shortness of breath, SOB with excertion, stridor, wheezing, others Cardiovascular: denies: chest pain, dizzy spells, diaphoresis, Dyspnea on exertion, edema, irregular heart beat, left arm pain, lightheadedness, palpitations, PND, syncope, others Gastrointestinal: denies: abdomen distended, abdominal pain, blood streaked bowels, constipated, diarrhea, dysphagia, difficulty swallowing, hematemesis, melena, nausea, poor appetite, poor fluid intake, rectal bleeding, rectal pain, vomiting, others Genitourinary: reports: pain (PENIS); denies: burning, dysuria, flank pain, frequency, hematuria, incontinence, penile discharge, penile sore, testicle pain, testicle swelling, urgency, others Neurological: denies: dizziness, fainting, headache, left sided numbness, left sided weakness, numbness, paresthesia, pre-existing deficit, right sided numbness, right sided weakness, seizure, speech problems, tingling, tremors, weakness, others Musculoskeletal: denies: back pain, gout, joint pain, joint swelling, muscle pain, muscle stiffness, neck pain, others Integumetry: denies: bruises, change in color, change in hair/nails, dryness, laceration, lesions, lumps, rash, wounds, others Allergic/Immunocompromised: denies: Difficulty Healing, Frequent Infections, Hives, Itching, others Hematologic/Lymphatic: denies: anemia, blood clots, easy bleeding, easy bruising, swollen glands, others Endocrine: denies: excessive hunger, excessive sweating, excessive thirst, excessive urination, flushing, intolerance to cold, intolerance to heat, unexp lained weight gain, unexplained weight loss, others Psychiatric: denies: anxiety, bipolar disorder, depression, hopeless, panic disorder, schizophrenia, sleepless, suicidal, others All Other Systems: Reviewed and Negative Physical Exam General Appearance: No Apparent Distress, Normal HEENT: Normal ENT Inspection, Pharynx Normal, TMs Normal Neck: Full Range of Motion, Non-Tender, Normal, Normal Inspection Respiratory: Chest Non-Tender, Lungs Clear, No Accessory Muscle Use, No Respiratory Distress, Normal Breath Sounds Cardiovascular: No Edema, No JVD, No Murmur, No Gallop, Normal Peripheral Pulse s, Regular Rate/Rhythm Breast Exam: Deferred Gastrointestinal: No Organomegaly, Non Tender, No Pulsatile Mass, Normal Bowel Sounds, Soft Genitalia: Deferred Pelvic: Deferred Rectal: Deferred Extremities: No calf tenderness, Normal capillary refill, Normal inspection, Normal range of motion, Non-tender, No pedal edema Musculoskeletal : Apperance: Normal Neurologic: Alert, solid fiber paster operator II-XII nml as Tested, No Motor Deficits, Normal Affect, Normal Mood, No Sensory Deficits Cerebellar Function: Normal Reflexes: Normal Skin: Dry, Normal Color, Warm Lymphatic: No Adenopathy Was a procedure done? Was a procedure done?: Yes Sedation Sedation?: No Other Procedure Procedure Priapism Drainage Indication Priapism for 4 hours Anesthetic Lidocaine 2% penile block Prep Betadine Success Yes, 200ml of blood removed Informed consent obtained: Yes Risks, benefits, and alternati: Yes Differential Dx Considerations may include: Priapism X-Ray, Labs, Meds, VS Vital Signs Date Time Temp Pulse Resp B/P (MAP) Pulse Ox O2 Delivery O2 Flow Rate FiO2 04/28/24 10:51 87 20 98 Room Air* 0 21 04/28/24 10:51 70 20 208/109 04/28/24 10:48 99.0 87 20 183/117 (139) 98 99.0 04/28/24 10:21 81 20 186/101 04/28/24 09:25 98.1 100 20 204/139 (160) 94 Lab Test 04/28/24 10:16 Range/Units White Blood Count 14.5 H 4.4-10.8 10^3/uL Red Blood Count 3.05 L 4.5-5.90 10^6/uL Hemoglobin 9.2 L 13.5-17.5 g/dL Hematocrit 28.6 L 41.0-53.0 % Mean Corpuscular Volume 93.8 80.0-100.0 fL Mean Corpuscular Hemoglobin 30.1 28.0-32.0 pg Mean Corpuscular Hemoglobin Concent 32.1 32.0-36.0 g/dL Red Cell Distribution Width 16.5 H 11.8-14.3 % Platelet Count 291 # 140-450 10^3/uL Mean Platelet Volume 7.9 6.9-10.8 fL Neutrophils (%) (Auto) 85.8 H 37.0-80.0 % Lymphocytes (%) (Auto) 8.6 L 10.0-50.0 % Monocytes (%) (Auto) 5.5 0.0-12.0 % Eosinophils (%) (Auto) 0.1 0.0-7.0 % Basophils (%) (Auto) 0.0 0.0-2.0 % Neutrophils # (Auto) 12.4 H 1.6-8.6 10 ^3/uL Lymphocytes # (Auto) 1.3 0.4-5.4 10 ^3/uL Monocytes # (Auto) 0.8 0-1.3 10 ^3/uL Eosinophils # (Auto) 0 0-0.8 10 ^3/uL Basophils # (Auto) 0 0-0.2 10 ^3/uL Nucleated Red Blood Cells 0.1 % Prothrombin Time 11.1 9.3-11.8 sec Prothrombin Time INR 1.05 0.9-1.15 Sodium Level 143 # 136-145 mmol/L Potassium Level 4.4 3.5-5.1 mmol/L Chloride Level 110 H 98-107 mmol/L Carbon Dioxide Level 26 20-31 mmol/L Anion Gap 7 5-15 Blood Urea Nitrogen 71 H 9-23 mg/dL Creatinine 3.19 H 0.700-1.30 mg/dL Glomerular Filtration Rate Calc 24 >90 mL/min BUN/Creatinine Ratio 22.3 H 10.0-20.0 Serum Glucose 136 H 74-106 mg/dL Calcium Level 9.4 8.7-10.4 mg/dL Current Medications Medications (Trade) Dose Ordered Sig/Yvan Route Start Time Stop Time Status Last Admin Lidocaine HCl (Xylocaine) 10 ml ONCE ONCE IJ 04/28/24 09:45 04/28/24 09:46 DC 04/28/24 10:21 Sodium Chloride 1,000 ml @ 1,000 mls/hr Q1H ONCE IV 04/28/24 10:15 04/28/24 11:14 DC 04/28/24 10:22 Morphine Sulfate 4 mg ONCE ONCE IV 04/28/24 10:15 04/28/24 10:16 DC 04/28/24 10:21 Ondansetron HCl (Zofran) 4 mg ONCE ONCE IV 04/28/24 10:15 04/28/24 10:16 DC 04/28/24 10:14 Time of 1ST Reevaluation: 09:57 Reevaluation 1ST: Unchanged Patient Education/Counseling: Diagnosis, Treatment, Prognosis Family Education/Counseling: No Family Present Departure 1 Departure Time of Disposition: 11:35 (Drained patient's erection good results. Patient does not want to stay in the hospital despite his BERNICE in signed out AMA.) Impression: Primary Impression: Low flow priapism Additional Impressions: Anemia Qualified Codes: D64.9 - Anemia, unspecified Hypertension Qualified Codes: I10 - Essential (primary) hypertension BERNICE (acute kidney injury) Disposition: LEFT AGAINST MEDICAL ADVICE Condition: Guarded Discharged With: Self Critical Care Note Critical Care Time?: Yes Critical care comment: Acute Priapism Authorized and Performed by: Mally Olvera MD Total critical care time: Approximately 42 minutes Due to a high probability of clinically significant, life threatening deterioration, the patient required my highest level of preparedness to intervene emergently and I personally spent this critical care time directly and personally managing the patient. This critical care time included obtaining a history; examining the patient; pulse oximetry; ordering and review of studies; arranging urgent treatment with development of a management plan; evaluation of patient's response to treatment; frequent reassessment; and, discussions with ot her providers. This critical care time was performed to assess and manage the high probability of imminent, life-threatening deterioration that could result in multi-organ failure. It was exclusive of separately billable procedures and treating other patients and teaching time. Please see my other sections and the rest of the note for further information on patient assessment and treatment. Stability Stability form required: No I personally scribed for MALLY OLVERA MD ([email or web address]) on 04/28/24 at 09:35. Electronically submitted by Jed Olguin ([email or web address]). MALLY OLVERA MD Apr 28, 2024 09:35
[2024-04-28] MEDS: PHENYLEPHRINE INJ 10 MG in SODIUM CHL 0.9% 19 ML IR ONE (09:45)
[2024-04-28] MEDS: ONDANSETRON HCL 4 MG/2 ML VIAL IV ONE (10:14)
[2024-04-28] MEDS: MORPHINE SULFATE 4 MG/ML SYR/VIAL IV ONE (10:21)
[2024-04-28] MEDS: LIDOCAINE 2%HCL (LOCAL ANESTH.) INJ 10ml MDV IJ ONE (10:21)
[2024-04-28] MEDS: SODIUM CHLORIDE 0.9% 1,000 ML IV ONE (10:22)
[2024-04-28 10:46] LABS: Basophils # (auto) 0 10 ^3/uL (0-0.2); Eosinophils # (auto) 0 10 ^3/uL (0-0.8); Eosinophils % (auto) 0.1 % (0.0-7.0); Hematocrit 28.6 % (41.0-53.0); Hemoglobin 9.2 g/dL (13.5-17.5); Lymphocytes # (auto) 1.3 10 ^3/uL (0.4-5.4); Lymphocytes % (auto) 8.6 % (10.0-50.0); Mean Corpuscular Hemoglobin 30.1 pg (28.0-32.0); Mean Corpuscular Hgb Conc. 32.1 g/dL (32.0-36.0); Mean Corpuscular Volume 93.8 fL (80.0-100.0); Monocytes # (auto) 0.8 10 ^3/uL (0-1.3); Monocytes % (auto) 5.5 % (0.0-12.0); Neutrophils # (auto) 12.4 10 ^3/uL (1.6-8.6); Neutrophils % (auto) 85.8 % (37.0-80.0); Nucleated Red Blood Cells % 0.1 %; Platelet Count (auto) 291 10^3/uL (140-450); Red Blood Cells 3.05 10^6/uL (4.5-5.90); Red Cell Distribution Width 16.5 % (11.8-14.3); White Blood Cell 14.5 10^3/uL (4.4-10.8)
[2024-04-28 10:49] LABS: Chloride 110 mmol/L (98-107); Potassium 4.4 mmol/L (3.5-5.1); Sodium 143 mmol/L (136-145)
[2024-04-28 10:50] LABS: Anion Gap 7 (5-15); Calcium 9.4 mg/dL (8.7-10.4); Carbon Dioxide 26 mmol/L (20-31)
[2024-04-28 10:51] VITALS: PULSE 87; RESP 20; O2SAT 98
[2024-04-28 10:55] LABS: BUN/Creatinine Ratio 22.3 (10.0-20.0); Blood Urea Nitrogen 71 mg/dL (9-23); Glucose 136 mg/dL (74-106)
[2024-04-28 10:56] LABS: INR 1.05 (0.9-1.15); Prothrombin Time 11.1 sec (9.3-11.8)
[2024-04-28 11:36] VITALS: BP 171/99; PULSE 87; RESP 15; TEMP 99; O2SAT 98
== END 2024-04-28 11:15 | disposition left against medical advice (07) ==
LOC: ER 09:13 → EDUNIT# 09:13 → ER 11:15
DX: N48.39 Other priapism (principal); N17.9 Acute kidney failure, unspecified; I11.0 Hypertensive heart disease with heart failure; I50.9 Heart failure, unspecified; D64.9 Anemia, unspecified; F17.210 Nicotine dependence, cigarettes, uncomplicated; F15.90 Other stimulant use, unspecified, uncomplicated; Z86.73 Personal history of transient ischemic attack (TIA), and cerebral infarction without residual deficits; Z79.52 Long term (current) use of systemic steroids; Z79.624 Long term (current) use of inhibitors of nucleotide synthesis; Z79.82 Long term (current) use of aspirin; Z79.899 Other long term (current) drug therapy
CPT/HCPCS: 36415; 54220; 80048; 85025; 85610; 96361; 96374; 96375; 99284; J2003; J2270; J2371; J2405; J7030

== ENCOUNTER 2025-01-10 12:54 | Inpatient (IN) | payer MEDICAID ==
[~2025-01-10] VITALS: Ht 188 cm; Wt 163.0 kg
--- NOTE | 2025-01-10 13:42 | ED.PDOC ---
History of Present Illness HPI Comments 44 year old male presents to the ED with a chief complaint of muscle pain. Patient's states the patient has been taking Prednisone 6 times a day, dose was reduced by PCP to 4 times a day. Since the dose was reduced a few months ago, patient has been experiencing muscle aches, muscle spasms, can radiate from neck to back to extremities. Currently patient is not able to ambulate due to back pain, is also experiencing bilateral hand pain with swelling. He has been following up with PCP, was told it was a possible diagnosis of Lupus. PMHx CVA, CHF, HTN. Denies fall, trauma, chest pain, shortness of breath, nausea, vomiting, diarrhea, headache, dizziness, fever, chills. No other symptoms or modifying factors present at this time. Chief Complaint: Allergic Reaction Time Seen by MD: 13:30 Primary Care Provider: DR RODRÍGUEZ Reviewed Notes: Medications, Allergies Allergies: Coded Allergies: NO KNOWN ALLERGIES (Unverified , 01/02/23) Home Meds Active Scripts Hydrocodone-Acetaminophen (Hydrocodone Bitartrate/AC 5-325 mg) 1 Tab Tab, 1 TAB PO Q4HP PRN, #20 TAB Prov:BYRON JEAN MD 04/23/24 Reported Medications Hydroxychloroquine Sulfate (Hydroxychloroquine Sulfat) 200 Mg Tab, 1 TAB PO BID 04/21/24 Cholecalciferol (VITAMIN D3) 5,000 Unit Cap, 1 CAP PO DAILY 04/21/24 Mycophenolate Mofetil (Mycophenolate Mofetil) 500 Mg Tab, 1 TAB PO BID 04/21/24 Prednisone (Prednisone) 10 Mg Tab, 6 TAB PO DAILY 02/01/24 Chlorthalidone (Chlorthalidone) 25 Mg Tab, 1 TAB PO DAILY 02/01/24 Furosemide (Furosemide) 40 Mg Tab, 2 TAB PO DAILY 02/01/24 Aspirin (Aspirin Adult Low Dose) 81 Mg Tab, 1 TAB PO DAILY 02/01/24 Clonidine Hydrochloride (Clonidine Hcl) 0.1 Mg Tab, 1 TAB PO BID 02/01/24 Carvedilol (Carvedilol) 25 Mg Tab, 25 MG PO Q12HR for 30 Days, MG 02/01/24 Information Source: Patient, Spouse Mode of Arrival: Wheelchair Severity: Moderate Timing: Months Duration: Since onset Prehospital treatment: None Past Medical History PAST MEDICAL HISTORY: CHF, CVA, HTN Surgical History: Denies all surgeries Family History Family History: Reviewed,noncontributory to illness Social History Smoker: Cigarettes Alcohol: Occasionally Drugs: Marijuana Lives In: Home Constitutional: denies: chills, diaphoresis, fatigue, fever, malaise, sweats, weakness, others EENTM: denies: blurred vision, double vision, ear bleeding, ear discharge, ear drainage, ear pain, ear ringing, eye pain, eye redness, hearing loss, mouth pain, mouth swelling, nasal discharge, nose bleeding, nose congestion, nose pain, photophobia, tearing, throat pain, throat swelling, voice changes, others Respiratory: denies: cough, hemoptysis, orthopnea, SOB at rest, shortness of breath, SOB with excertion, stridor, wheezing, others Cardiovascular: denies: chest pain, dizzy spells, diaphoresis, Dyspnea on exertion, edema, irregular heart beat, left arm pain, lightheadedness, palpitations, PND, syncope, others Gastrointestinal: denies: abdomen distended, abdominal pain, blood streaked bowels, constipated, diarrhea, dysphagia, difficulty swallowing, hematemesis, melena, nausea, poor appetite, poor fluid intake, rectal bleeding, rectal pain, vomiting, others Genitourinary: denies: burning, dysuria, flank pain, frequency, hematuria, incontinence, penile discharge, penile sore, pain, testicle pain, testicle swelling, urgency, others Neurological: denies: dizziness, fainting, headache, left sided numbness, left sided weakness, numbness, paresthesia, pre-existing deficit, right sided numbness, right sided weakness, seizure, speech problems, tingling, tremors, weakness, others Musculoskeletal: reports: back pain, muscle pain, muscle stiffness; denies: gout, joint pain, joint swelling, neck pain, others Integumetry: denies: bruises, change in color, change in hair/nails, dryness, laceration, lesions, lumps, rash, wounds, others Allergic/Immunocompromised: denies: Difficulty Healing, Frequent Infections, Hives, Itching, others Hematologic/Lymphatic: denies: anemia, blood clots, easy bleeding, easy bruising, swollen glands, others Endocrine: denies: excessive hunger, excessive sweating, excessive thirst, excessive urination, flushing, intolerance to cold, intolerance to heat, unexplained weight gain, unexplained weight loss, others Psychiatric: denies: anxiety, bipolar disorder, depression, hopeless, panic disorder, schizophrenia, sleepless, suicidal, others All Other Systems: Reviewed and Negative Physical Exam General Appearance: Moderate Distress, Normal HEENT: Normal ENT Inspection, Pharynx Normal, TMs Normal Neck: Full Range of Motion, Non-Tender, Normal, Normal Inspection Respiratory: Chest Non-Tender, Lungs Clear, No Accessory Muscle Use, No Respiratory Distress, Normal Breath Sounds Cardiovascular: No Edema, No JVD, No Murmur, No Gallop, Normal Peripheral Pulses, Regular Rate/Rhythm Breast Exam: Deferred Gastrointestinal: No Organomegaly, Non Tender, No Pulsatile Mass, Normal Bowel Sounds, Soft Genitalia: Deferred Pelvic: Deferred Rectal: Deferred Extremities: No calf tenderness, Normal capillary refill, Normal inspection, Normal range of motion, Non-tender, No pedal edema Musculoskeletal : Apperance: Normal Neurologic: Alert, jet ski mechanic II-XII nml as Tested, No Motor Deficits, Normal Affect, Normal Mood, No Sensory Deficits Cerebellar Function: NOT DONE Reflexes: NOT DONE Skin: Dry, Normal Color, Warm Lymphatic: No Adenopathy Was a procedure done? Was a procedure done?: No Differential Dx Considerations may include: CHF Electrolyte imbalance X-Ray, Labs, Meds, VS Vital Signs Date Time Temp Pulse Resp B/P (MAP) Pulse Ox O2 Delivery O2 Flow Rate FiO2 01/10/25 13:04 98.8 94 20 164/108 96 98.8 Lab Test 01/10/25 14:03 Range/Units White Blood Count 10.2 4.4-10.8 10^3/uL Red Blood Count 3.60 L 4.5-5.90 10^6/uL Hemoglobin 9.7 L 13.5-17.5 g/dL Hematocrit 30.2 L 41.0-53.0 % Mean Corpuscular Volume 83.8 80.0-100.0 fL Mean Corpuscular Hemoglobin 27.0 L 28.0-32.0 pg Mean Corpuscular Hemoglobin Concent 32.2 32.0-36.0 g/dL Red Cell Distribution Width 17.5 H 11.8-14.3 % Platelet Count 235 140-450 10^3/uL Mean Platelet Volume 8.1 6.9-10.8 fL Neutrophils (%) (Auto) 78.6 37.0-80.0 % Lymphocytes (%) (Auto) 10.0 10.0-50.0 % Monocytes (%) (Auto) 9.4 0.0-12.0 % Eosinophils (%) (Auto) 1.3 0.0-7.0 % Basophils (%) (Auto) 0.7 0.0-2.0 % Neutrophils # (Auto) 8.0 1.6-8.6 10 ^3/uL Lymphocytes # (Auto) 1.0 0.4-5.4 10 ^3/uL Monocytes # (Auto) 1.0 0-1.3 10 ^3/uL Eosinophils # (Auto) 0.1 0-0.8 10 ^3/uL Basophils # (Auto) 0.1 0-0.2 10 ^3/uL Nucleated Red Blood Cells 0.1 % Sodium Level 141 136-145 mmol/L Potassium Level 3.8 3.5-5.1 mmol/L Chloride Level 103 98-107 mmol/L Carbon Dioxide Level 26 20-31 mmol/L Anion Gap 12 5-15 Blood Urea Nitrogen 63 H 9-23 mg/dL Creatinine 3.97 H 0.700-1.30 mg/dL Glomerular Filtration Rate Calc 18 >90 mL/min BUN/Creatinine Ratio 15.9 10.0-20.0 Serum Glucose 101 74-106 mg/dL Calcium Level 8.8 8.7-10.4 mg/dL Troponin I High Sensitivity Pending Patient alert. Generalized weakness. Vitals stable. Answering questions. Kidney function elevated. WBC within normal limits. Chest x-ray reviewed does show CHF. Was given Lasix. Have to be careful with kidney function. Explained to the patient. Continue monitoring. Time of 1ST Reevaluation: 14:00 Reevaluation 1ST: Unchanged Patient Education/Counseling: Diagnosis, Treatment, Prognosis Family Education/Counseling: Diagnosis, Treatment, Prognosis SEPSIS Sepsis Screen Date sepsis recognized/suspect: Jan 10, 2025 Time Sepsis recognized/suspect: 1309 Recent Procedure: No On Antibiotic Therapy: No Respiratory Rate >20: No Heart Rate >90: No Temp<36 C (96.8 F) or >38.3 C: No SBP <90 or MAP <65 mmHG: No New Acute Mental Status Change: No Is the patient on CPAP, BIPAP,: No Physician Orders Troponin-I Hs (01/10/25 13:40) Chest Portable (01/10/25 13:40) Urinalysis (01/10/25 13:40) Vital Signs Date Time Temp Pulse Resp B/P (MAP) Pulse Ox O2 Delivery O2 Flow Rate FiO2 01/10/25 13:04 98.8 94 20 164/108 96 98.8 Laboratory Tests Test 01/10/25 14:03 White Blood Count 10.2 10^3/uL (4.4-10.8) Departure 1 Departure Time of Disposition: 14:50 Impression: Primary Impression: CHF (congestive heart failure) Qualified Codes: I50.43 - Acute on chronic combined systolic (congestive) and diastolic (congestive) heart failure Additional Impression: Chronic kidney disease Qualified Codes: N18.9 - Chronic kidney disease, unspecified Disposition: ADMITTED INPATIENT Admit to: Med Surg Condition: Guarded Critical Care Note Critical Care Time?: Yes (90 min-critical care time only) Stability Stability form required: No Heart Score Heart Score: Heart Score Response (Comments) Value History N/A 0 EKG N/A 0 Age N/A 0 Risk Factors N/A 0 Troponin N/A 0 Total 0 I personally scribed for ESA DENTON MD ([email or web address]) on 01/10/25 at 13:42. Electronically submitted by Cyn Catalan ([email or web address]). ESA DENTON MD Jan 10, 2025 13:42
[2025-01-10] MEDS ORDERED: SODIUM CHLORIDE 0.9% 1,000 ML IV ONE (13:45)
[2025-01-10 14:23] LABS: Hematocrit 30.2 % (41.0-53.0); Hemoglobin 9.7 g/dL (13.5-17.5); Mean Corpuscular Hemoglobin 27.0 pg (28.0-32.0); Mean Corpuscular Volume 83.8 fL (80.0-100.0); Nucleated Red Blood Cells % 0.1 %
--- NOTE | 2025-01-10 14:24 | DVH ---
CHEST RADIOGRAPH Indication: sob Technique: Single frontal view of the chest was obtained Comparison: XY CHEST PORTABLE on DOS: 02/02/24, XY CHEST TWO VIEWS ROUTINE on DOS: 01/02/23 FINDINGS: Lines and Tubes: None Lungs: No focal consolidation. Pulmonary vascular congestion. Pleura: No effusion. No pneumothorax. Cardiomediastinal contours: [id number] cardiomegaly Bones: No acute osseous abnormality. IMPRESSION: [id number] cardiomegaly with pulmonary vascular congestion.
[2025-01-10 14:31] LABS: Chloride 103 mmol/L (98-107); Potassium 3.8 mmol/L (3.5-5.1); Sodium 141 mmol/L (136-145)
[2025-01-10 14:32] LABS: Anion Gap 12 (5-15); Calcium 8.8 mg/dL (8.7-10.4); Carbon Dioxide 26 mmol/L (20-31)
[2025-01-10 14:37] LABS: BUN/Creatinine Ratio 15.9 (10.0-20.0); Glucose 101 mg/dL (74-106)
[2025-01-10 14:39] LABS: Blood Urea Nitrogen 63 mg/dL (9-23)
[2025-01-10] MEDS: FUROSEMIDE 40 MG/4 ML VIAL IV ONE (16:12)
--- NOTE | 2025-01-10 17:02 | DVHHP2 ---
Admitting Diagnosis: muscle pain History of Present Illness 44 year old male presents to the ED with a chief complaint of muscle pain. Patient's states the patient has been taking Prednisone 6 times a day, dose was reduced by PCP to 4 times a day. Since the dose was reduced a few months ago, patient has been experiencing muscle aches, muscle spasms, can radiate from neck to back to extremities. Currently patient is not able to ambulate due to back pain, is also experiencing bilateral hand pain with swelling. He has been following up with PCP, was told it was a possible diagnosis of Lupus. PMHx CVA, CHF, HTN. Denies fall, trauma, chest pain, shortness of breath, nausea, vomiting, diarrhea, headache, dizziness, fever, chills. No other symptoms or modifying factors present at this time. PAST MEDICAL HISTORY: CHF, CVA, HTN Surgical History: Denies all surgeries Family History: Reviewed,noncontributory to illness Social History Smoker: Cigarettes Alcohol: Occasionally Drugs: Marijuana Lives In: Home Allergies: Coded Allergies: NO KNOWN ALLERGIES (Unverified , 01/02/23) Home Meds Active Scripts Hydrocodone-Acetaminophen (Hydrocodone Bitartrate/AC 5-325 mg) 1 Tab Tab, 1 TAB PO Q4HP PRN, #20 TAB Prov:BYRON JEAN MD 04/23/24 Reported Medications Hydroxychloroquine Sulfate (Hydroxychloroquine Sulfat) 200 Mg Tab, 1 TAB PO BID 04/21/24 Cholecalciferol (VITAMIN D3) 5,000 Unit Cap, 1 CAP PO DAILY 04/21/24 Mycophenolate Mofetil (Mycophenolate Mofetil) 500 Mg Tab, 1 TAB PO BID 04/21/24 Prednisone (Prednisone) 10 Mg Tab, 6 TAB PO DAILY 02/01/24 Chlorthalidone (Chlorthalidone) 25 Mg Tab, 1 TAB PO DAILY 02/01/24 Furosemide (Furosemide) 40 Mg Tab, 2 TAB PO DAILY 02/01/24 Aspirin (Aspirin Adult Low Dose) 81 Mg Tab, 1 TAB PO DAILY 02/01/24 Clonidine Hydrochloride (Clonidine Hcl) 0.1 Mg Tab, 1 TAB PO BID 02/01/24 Carvedilol (Carvedilol) 25 Mg Tab, 25 MG PO Q12HR for 30 Days, MG 02/01/24 Vital Signs Vital Signs Date Time Temp Pulse Resp B/P (MAP) Pulse Ox O2 Delivery O2 Flow Rate FiO2 01/10/25 18:13 98.4 98 18 167/112 (130) 98 98.4 01/10/25 16:14 Room Air Physical Exam 44-year-old male, morbidly obese, sitting in wheelchair. No apparent distress HEENT-atraumatic, normocephalic Heart-regular rate and rhythm Lungs clear to auscultation Musculoskeletal-dizziness erythema and swelling . Lower extremity edema Neuro-AO x3, no focal deficits SEPSIS Sepsis Screen Date sepsis recognized/suspect: Jan 10, 2025 Time Sepsis recognized/suspect: 1310 Recent Procedure: No On Antibiotic Therapy: No Respiratory Rate >20: No Heart Rate >90: No Temp<36 C (96.8 F) or >38.3 C: No SBP <90 or MAP <65 mmHG: No New Acute Mental Status Change: No Is the patient on CPAP, BIPAP,: No Physician Orders Chest Portable (01/10/25 13:40) Urinalysis (01/10/25 13:40) Vital Signs Date Time Temp Pulse Resp B/P (MAP) Pulse Ox O2 Delivery O2 Flow Rate FiO2 01/10/25 18:13 98.4 98 18 167/112 (130) 98 98.4 01/10/25 16:30 167/112 01/10/25 16:14 80 17 93 Room Air 01/10/25 16:14 99.5 80 17 177/124 (141) 93 99.5 01/10/25 16:12 177/124 01/10/25 13:04 98.8 94 20 164/108 96 98.8 Laboratory Tests Test 01/10/25 14:03 White Blood Count 10.2 10^3/uL (4.4-10.8) Medications Medications Dose Ordered Sig/Yvan Route Start Time Stop Time Status Last Admin Dose Admin Clonidine HCl 0.2 mg ONCE ONCE PO 01/10/25 16:30 01/10/25 16:31 DC 01/10/25 16:30 Furosemide 40 mg ONCE ONCE IV 01/10/25 15:00 01/10/25 15:01 DC 01/10/25 16:12 Results Labs Test 01/10/25 14:03 Range/Units White Blood Count 10.2 4.4-10.8 10^3/uL Red Blood Count 3.60 L 4.5-5.90 10^6/uL Hemoglobin 9.7 L 13.5-17.5 g/dL Hematocrit 30.2 L 41.0-53.0 % Mean Corpuscular Volume 83.8 80.0-100.0 fL Mean Corpuscular Hemoglobin 27.0 L 28.0-32.0 pg Mean Corpuscular Hemoglobin Concent 32.2 32.0-36.0 g/dL Red Cell Distribution Width 17.5 H 11.8-14.3 % Platelet Count 235 140-450 10^3/uL Mean Platelet Volume 8.1 6.9-10.8 fL Neutrophils (%) (Auto) 78.6 37.0-80.0 % Lymphocytes (%) (Auto) 10.0 10.0-50.0 % Monocytes (%) (Auto) 9.4 0.0-12.0 % Eosinophils (%) (Auto) 1.3 0.0-7.0 % Basophils (%) (Auto) 0.7 0.0-2.0 % Neutrophils # (Auto) 8.0 1.6-8.6 10 ^3/uL Lymphocytes # (Auto) 1.0 0.4-5.4 10 ^3/uL Monocytes # (Auto) 1.0 0-1.3 10 ^3/uL Eosinophils # (Auto) 0.1 0-0.8 10 ^3/uL Basophils # (Auto) 0.1 0-0.2 10 ^3/uL Nucleated Red Blood Cells 0.1 % Sodium Level 141 136-145 mmol/L Potassium Level 3.8 3.5-5.1 mmol/L Chloride Level 103 98-107 mmol/L Carbon Dioxide Level 26 20-31 mmol/L Anion Gap 12 5-15 Blood Urea Nitrogen 63 H 9-23 mg/dL Creatinine 3.97 H 0.700-1.30 mg/dL Glomerular Filtration Rate Calc 18 >90 mL/min BUN/Creatinine Ratio 15.9 10.0-20.0 Serum Glucose 101 74-106 mg/dL Calcium Level 8.8 8.7-10.4 mg/dL Troponin I High Sensitivity 23 </=54 ng/L Primary Diagnosis Generalized muscle weakness BERNICE on CKD Plan Patient states she has been taking 60 mg steroids for with a kidney doctor for possible and systemic lupus erythematosus. Patient states that he was biopsy but I was unable to find results from chart review. Patient's has been from 60 mg to 40 mg to currently 20 mg daily. Patient has been having digit Per chart review patient had a positive anti SSA antibody for possible SLE versus Sjogren's syndrome. Elevated PTH, gamma globulinemia, IgA elevate. History of elevated IgA consult for possible IgA nephropathy Nephrology consult Prednisone 20 mg daily. Taper down per Nephrology outpatient continue 20 mg daily while inpatient Chest x-ray shows CHF Start IV Lasix 40 mg b.i.d. Check BNP Check echo of the heart Daily weights Strict in and out Fluid restriction Optimize potassium greater than four, magnesium greater than two Avoid nephrotoxic medication if possible Full code Heparin for DVT prophylaxis PPI for GI prophylaxis Renal diet Plan discussed with: Patient Problems List: (1) CHF (congestive heart failure) Status: Acute (2) Chronic kidney disease Status: Acute Date of Service: Jan 10, 2025 Billing Provider: RUDY RICHARDSON MD Common Visit Codes: [id number] INP/OBS CARE (HIGH) RUDY RICHARDSON MD Jan 10, 2025 17:02
[2025-01-10] MEDS ORDERED: ACETAMINOPHEN 325 MG TAB PO PRN (19:45)
[2025-01-10] MEDS ORDERED: ONDANSETRON HCL 4 MG/2 ML VIAL IV PRN (19:45)
[2025-01-10] MEDS ORDERED: DOCUSATE SOD 100 MG CAP PO PRN (19:45)
[2025-01-10 21:46] LABS: Urine Protein, UAD 1+ (Negative)
[2025-01-10 22:07] VITALS: BP 196/130; PULSE 88; RESP 19; TEMP 97.9; O2SAT 96
[2025-01-10 22:19] VITALS: BP 196/130; PULSE 88; RESP 19; TEMP 97.9; O2SAT 96
[2025-01-10] MEDS: CARVEDILOL 12.5 MG TAB PO SCH (22:22)
[2025-01-10] MEDS: HYDROcodone-ACET 5/325MG TAB PO PRN (22:31)
[2025-01-10] MEDS: SODIUM CHLOR 0.9% PF (SALINE LOCK) 10ML VIAL/SYR IV SCH (22:41)
[2025-01-10] MEDS: MYCOPHENOLATE 500 MG TAB PO SCH (22:41)
[2025-01-10] MEDS: hydrALAZINE HCL 20 MG/ML VL IV PRN (23:53)
[2025-01-11] VITALS (8 sets, daily range): BP systolic 152–177; BP diastolic 86–119; PULSE 83–89; RESP 17–18; TEMP 97.5–100.8; O2SAT 92–99
[2025-01-11] MEDS: FUROSEMIDE 40 MG/4 ML VIAL IV SCH (05:17)
[2025-01-11 05:43] LABS: Hematocrit 30.2 % (41.0-53.0); Hemoglobin 9.9 g/dL (13.5-17.5); Mean Corpuscular Hemoglobin 27.5 pg (28.0-32.0); Mean Corpuscular Volume 84.2 fL (80.0-100.0); Nucleated Red Blood Cells % 0.0 %
[2025-01-11 06:05] LABS: Albumin 4.0 g/dL (3.2-4.8); Alkaline Phosphatase 56 U/L (46-116); Anion Gap 14 (5-15); BUN/Creatinine Ratio 16.3 (10.0-20.0); Calcium 8.8 mg/dL (8.7-10.4); Carbon Dioxide 24 mmol/L (20-31); Chloride 104 mmol/L (98-107); Glucose 92 mg/dL (74-106); Magnesium 1.9 mg/dL (1.6-2.6); Potassium 3.6 mmol/L (3.5-5.1); Sodium 142 mmol/L (136-145); Total Protein 6.9 g/dL (5.7-8.2)
[2025-01-11 06:06] LABS: Alanine Aminotransferase < 9 U/L (7-40); Bilirubin, Total 0.4 mg/dL (0.2-1.0); Blood Urea Nitrogen 60 mg/dL (9-23)
[2025-01-11] MEDS: ASPirin-EC 81 mg tab PO SCH (09:51)
[2025-01-11] MEDS: CHOLECALCIFEROL (VITD3) 1,000UNIT=25mCg TAB PO SCH (09:51)
[2025-01-11] MEDS: predniSONE 20 MG TAB PO SCH (09:51)
--- NOTE | 2025-01-11 12:45 | DVHSR ---
APPROVED REPORT EXAM: Two-dimensional and M-mode echocardiogram with Doppler and color Doppler. Blood Pressure: 159/100 mmHg INDICATION CHF exacerbation RISK FACTORS Obesity: Height: 6'2", Weight: 359 DIMENSIONS LVDd5.3 (3.8-5.7cm)LA (2D)4.8 (1.9-4.0cm)Aortic Root4.1 (2.0-3.7cm) LVDs3.9 (2.5-4.0cm)LA (MM) (1.9-4.0cm)Aortic Cusp Exc2.2 (1.5-2.0cm) EF (%) 55.0 (55-70%)Rt. Atrium4.7 (1.9-4.0cm)Asc. Aorta cm IVSd1.6 (0.7-1.1cm)RV (D) (1.8-2.4cm) PWd1.6 (0.7-1.1cm) Mitral Valve MitralMitral Stenosis E wave0.88m/sMV Mean GR.mmHg A wave0.64m/sMV Peak GR.mmHg E/A ratio1.42D MVAcm2 DECEL [id number] 1/2 Timems Aortic Valve Aortic ValveAortic Stenosis V11.10m/Jagjit Mean GR.5mmHg V21.50m/Jagjit Peak GR.9mmHg LVOT Diameter2.7 (1.8-2.4cm)Doppler AVA4.20cm2 Pulmonic Valve V21.76m/s Tricuspid Valve TR Velocity3.01m/s [id number] Other Information Technically limited study due to body habitus, patient laying flat and on CPAP. Conclusion lvef 55% mild lvh mild mitral regurg
--- NOTE | 2025-01-11 13:49 | DVHPN2 ---
Subjective Overnight events noted. Patient is currently on CPAP. Changes from previous H/P or p: No Changes Objective Vitals Vital Signs Date Time Temp Pulse Resp B/P (MAP) Pulse Ox O2 Delivery O2 Flow Rate FiO2 01/11/25 12:29 97.5 85 17 152/102 (119) 92 97.5 01/11/25 08:00 Room Air* 0 21 Intake/Output Intake and Output 01/11/25 07:00 Intake Total 100 ml Balance 100 ml Intake Oral 100 ml # Voids 1 Exam HEENT pupils are reactive Neck is supple CV is S1-S2 regular rate and rhythm Respiratory diminished breath sounds bases GI positive bowel sound Extremity no edema CLAIM ADJUSTER no motor deficit Medications Current Medications Medications Dose Ordered Sig/Yvan Route Start Time Stop Time Status Last Admin Dose Admin Furosemide 40 mg BIDD IV 01/11/25 06:00 01/11/25 05:17 40 MG Prednisone 20 mg DAILY PO 01/11/25 10:00 01/11/25 09:51 20 MG Sodium Chloride 10 ml Q8HR IV 01/10/25 22:00 01/11/25 05:17 10 ML Docusate Sodium 100 mg BIDPRN PRN PO 01/10/25 19:45 Acetaminophen 650 mg Q6HP PRN PO 01/10/25 19:45 Acetaminophen/ Hydrocodone Bitart 1 tab Q4HP PRN PO 01/10/25 19:45 01/10/25 22:31 1 TAB Ondansetron HCl 4 mg Q4HP PRN IV 01/10/25 19:45 Aspirin 81 mg DAILY PO 01/11/25 10:00 01/11/25 09:51 81 MG Clonidine HCl 0.1 mg BID PO 01/10/25 22:00 01/11/25 09:52 0.1 MG Hydroxychloroquine Sulfate 200 mg BID PO 01/10/25 22:00 01/11/25 09:51 200 MG Mycophenolate Mofetil 500 mg BID PO 01/10/25 22:00 01/11/25 10:00 500 MG Carvedilol 25 mg Q12HR PO 01/10/25 22:00 01/11/25 09:51 25 MG Cholecalciferol 5,000 unit DAILY PO 01/11/25 10:00 01/11/25 09:51 5,000 UNIT Hydralazine HCl 10 mg Q6HP PRN IV 01/10/25 19:45 01/10/25 23:53 10 MG Laboratory Results Laboratory Tests 01/11/25 04:28 Chemistry Test 01/10/25 14:03 01/11/25 04:28 Calcium Level 8.8 mg/dL (8.7-10.4) 8.8 mg/dL (8.7-10.4) Albumin 4.0 g/dL (3.2-4.8) Magnesium Level 1.9 mg/dL (1.6-2.6) Total Protein 6.9 g/dL (5.7-8.2) Cardiac Markers Test 01/11/25 04:28 B-Type Natriuretic Peptide 599.15 pg/mL (0-100) LFT Test 01/11/25 04:28 Alanine Aminotransferase (ALT) < 9 U/L (7-40) Alkaline Phosphatase 56 U/L (46-116) Aspartate Amino Transferase (AST) < 8 U/L (13-40) L Total Bilirubin 0.4 mg/dL (0.2-1.0) Urinalysis Test 01/10/25 21:33 Urine Color Colorless (Yellow) Urine Clarity Clear (Clear) Urine pH 5.5 (5.0-9.0) Urine Specific Marshall 1.008 (1.001-1.035) Urine Protein 1+ (Negative) H Urine Ketones Negative (Negative) Urine Blood Negative /uL (Negative) Urine Nitrite Negative (Negative) Urine Bilirubin Negative (Negative) Urine Urobilinogen Normal mg/dL (Negative) Urine Leukocyte Esterase Negative /uL (Negative) Urine Glucose Normal mg/dL (Normal) Assessment/Plan Assessment/Plan 44-year-old male with a known history of congestive heart failure, hypertension, sleep apnea currently on CPAP at night, morbid obesity classIII, systemic lupus erythematosus/Sjogren syndrome, currently on taper the prednisone presented to the hospital with a generalized body pain muscle aches found to have 1. Acute flare of lupus/Sjogren syndrome 2. Acute on chronic CHF exacerbation with diastolic dysfunction 3. Obesity hypoventilation syndrome/sleep apnea currently on CPAP at night 4. Hypertension 5. AKA with a underlying CKD stage 4 -continue prednisone, IV diuretics, 2D echo cardiology consultation and nephrology consultation. Plan discussed with: Patient My Orders Orders - GAURAV HUNTLEY MD Procedure Category Date Status Time Cardiac DIET 01/11/25 Transmitted Diet-2gna,Lofat,Lochol Lunch Date of Service: Jan 11, 2025 Billing Provider: GAURAV HUNTLEY MD Common Visit Codes: [id number] INP/OBS CARE(MOD) GAURAV HUNTLEY MD Jan 11, 2025 13:49
--- NOTE | 2025-01-11 17:30 | DVHINCON2 ---
Date of service: Jan 11, 2025 Reason for Consultation Acute kidney injury History of Present Illness 44-year-old obese male patient is a poor historian history obtained partially for interview and review of medical records. Patient has a past medical history of diastolic heart failure on diuretics, and diagnosed with lupus in 2023 and has been on Plaquenil, CellCept, prednisone. The consistency of patient's medication uses unclear to me. He also reports that he has chronic kidney disease stage 4. 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 Patient presents to the hospital complaining of sudden onset swelling and tightness of both hands. Nephrology consulted due to acute kidney injury. Allergies: Coded Allergies: NO KNOWN ALLERGIES (Unverified , 01/02/23) Home Meds Active Scripts Hydrocodone-Acetaminophen (Hydrocodone Bitartrate/AC 5-325 mg) 1 Tab Tab, 1 TAB PO Q4HP PRN, #20 TAB Prov:BYRON JEAN MD 04/23/24 Reported Medications Hydroxychloroquine Sulfate (Hydroxychloroquine Sulfat) 200 Mg Tab, 1 TAB PO BID 04/21/24 Cholecalciferol (VITAMIN D3) 5,000 Unit Cap, 1 CAP PO DAILY 04/21/24 Mycophenolate Mofetil (Mycophenolate Mofetil) 500 Mg Tab, 1 TAB PO BID 04/21/24 Prednisone (Prednisone) 10 Mg Tab, 6 TAB PO DAILY 02/01/24 Chlorthalidone (Chlorthalidone) 25 Mg Tab, 1 TAB PO DAILY 02/01/24 Furosemide (Furosemide) 40 Mg Tab, 2 TAB PO DAILY 02/01/24 Aspirin (Aspirin Adult Low Dose) 81 Mg Tab, 1 TAB PO DAILY 02/01/24 Clonidine Hydrochloride (Clonidine Hcl) 0.1 Mg Tab, 1 TAB PO BID 02/01/24 Carvedilol (Carvedilol) 25 Mg Tab, 25 MG PO Q12HR for 30 Days, MG 02/01/24 Current Medications Current Medications Medications (Trade) Dose Ordered Sig/Yvan Route PRN Reason Start Time Stop Time Status Last Admin Furosemide (Lasix Injection) 40 mg BIDD IV 01/11/25 06:00 01/11/25 17:05 Prednisone 20 mg DAILY PO 01/11/25 10:00 01/11/25 09:51 Sodium Chloride (Saline Lock Ns) 10 ml Q8HR IV 01/10/25 22:00 01/11/25 14:00 Docusate Sodium (Colace Capsule) 100 mg BIDPRN PRN PO FOR CONSTIPATION 01/10/25 19:45 Acetaminophen (Tylenol Tablet) 650 mg Q6HP PRN PO PAIN SCALE 1-3 OR TEMP>100.4 01/10/25 19:45 Acetaminophen/ Hydrocodone Bitart (Thurman 5/325MG Tab) 1 tab Q4HP PRN PO MODERATE PAIN (4-6 PAIN SCALE) 01/10/25 19:45 01/10/25 22:31 Ondansetron HCl (Zofran) 4 mg Q4HP PRN IV NAUSEA / VOMITING 01/10/25 19:45 Aspirin (Ecotrin Enteric Coated Tablet) 81 mg DAILY PO 01/11/25 10:00 01/11/25 09:51 Clonidine HCl (Catapres Tablet) 0.1 mg BID PO 01/10/25 22:00 01/11/25 09:52 Hydroxychloroquine Sulfate (Plaquenil Tablet) 200 mg BID PO 01/10/25 22:00 01/11/25 09:51 Mycophenolate Mofetil (Cellcept) 500 mg BID PO 01/10/25 22:00 01/11/25 10:00 Carvedilol (Coreg Tablet) 25 mg Q12HR PO 01/10/25 22:00 01/11/25 09:51 Cholecalciferol (Vitamin D3 Tablet) 5,000 unit DAILY PO 01/11/25 10:00 01/11/25 09:51 Hydralazine HCl (Apresoline Injection) 10 mg Q6HP PRN IV SBP>150 01/10/25 19:45 01/10/25 23:53 Review of Systems inability to ambulate and sudden onset swelling in both hands with skin tightness H&P Exam Vital Signs/I&O Vital Sign Date Time Temp Pulse Resp B/P (MAP) Pulse Ox O2 Delivery O2 Flow Rate FiO2 01/11/25 17:05 159/102 01/11/25 16:51 97.6 83 18 96 97.6 01/11/25 08:00 Room Air* 0 21 Intake and Output 01/10/25 01/11/25 19:00 07:00 Intake Total 100 ml Balance 100 ml Intake Oral 100 ml # Voids 1 Physical Exam Morbidly obese male currently in acute distress complaining of inability to ambulate and severe swelling of bilateral hands. Regular rate and rhythm No murmur Bilateral upper extremity swelling with tightness of the hands, no pitting of bilateral feet Labs/Diagnostic Data Labs/Diagnostic Data Laboratory Tests Test 01/11/25 15:13 01/11/25 12:00 01/11/25 04:28 01/10/25 21:33 Range/Units Erythrocyte Sedimentation Rate 58 H 0-20 mm/hr White Blood Count 11.6 H 4.4-10.8 10^3/uL Red Blood Count 3.58 L 4.5-5.90 10^6/uL Hemoglobin 9.9 L 13.5-17.5 g/dL Hematocrit 30.2 L 41.0-53.0 % Mean Corpuscular Volume 84.2 80.0-100.0 fL Mean Corpuscular Hemoglobin 27.5 L 28.0-32.0 pg Mean Corpuscular Hemoglobin Concent 32.6 32.0-36.0 g/dL Red Cell Distribution Width 17.0 H 11.8-14.3 % Platelet Count 219 140-450 10^3/uL Mean Platelet Volume 8.4 6.9-10.8 fL Neutrophils (%) (Auto) 75.2 37.0-80.0 % Lymphocytes (%) (Auto) 14.2 10.0-50.0 % Monocytes (%) (Auto) 9.4 0.0-12.0 % Eosinophils (%) (Auto) 0.8 0.0-7.0 % Basophils (%) (Auto) 0.4 0.0-2.0 % Neutrophils # (Auto) 8.7 H 1.6-8.6 10 ^3/uL Lymphocytes # (Auto) 1.6 0.4-5.4 10 ^3/uL Monocytes # (Auto) 1.1 0-1.3 10 ^3/uL Eosinophils # (Auto) 0.1 0-0.8 10 ^3/uL Basophils # (Auto) 0 0-0.2 10 ^3/uL Nucleated Red Blood Cells 0.0 % Sodium Level 142 136-145 mmol/L Potassium Level 3.6 3.5-5.1 mmol/L Chloride Level 104 98-107 mmol/L Carbon Dioxide Level 24 20-31 mmol/L Anion Gap 14 5-15 Blood Urea Nitrogen 60 H 9-23 mg/dL Creatinine 3.68 H 0.700-1.30 mg/dL Glomerular Filtration Rate Calc 20 >90 mL/min BUN/Creatinine Ratio 16.3 10.0-20.0 Serum Glucose 92 74-106 mg/dL Calcium Level 8.8 8.7-10.4 mg/dL Magnesium Level 1.9 1.6-2.6 mg/dL Total Bilirubin 0.4 0.2-1.0 mg/dL Aspartate Amino Transferase (AST) < 8 L 13-40 U/L Alanine Aminotransferase (ALT) < 9 7-40 U/L Alkaline Phosphatase 56 46-116 U/L B-Type Natriuretic Peptide 599.15 0-100 pg/mL Total Protein 6.9 5.7-8.2 g/dL Albumin 4.0 3.2-4.8 g/dL Urine Color Colorless Yellow Urine Clarity Clear Clear Urine pH 5.5 5.0-9.0 Urine Specific [place] 1.008 1.001-1.035 Urine Protein 1+ H Negative Urine Ketones Negative Negative Urine Blood Negative Negative /uL Urine Nitrite Negative Negative Urine Bilirubin Negative Negative Urine Urobilinogen Normal Negative mg/dL Urine Leukocyte Esterase Negative Negative /uL Urine Glucose Normal Normal mg/dL Test 01/10/25 14:03 Range/Units White Blood Count 10.2 4.4-10.8 10^3/uL Red Blood Count 3.60 L 4.5-5.90 10^6/uL Hemoglobin 9.7 L 13.5-17.5 g/dL Hematocrit 30.2 L 41.0-53.0 % Mean Corpuscular Volume 83.8 80.0-100.0 fL Mean Corpuscular Hemoglobin 27.0 L 28.0-32.0 pg Mean Corpuscular Hemoglobin Concent 32.2 32.0-36.0 g/dL Red Cell Distribution Width 17.5 H 11.8-14.3 % Platelet Count 235 140-450 10^3/uL Mean Platelet Volume 8.1 6.9-10.8 fL Neutrophils (%) (Auto) 78.6 37.0-80.0 % Lymphocytes (%) (Auto) 10.0 10.0-50.0 % Monocytes (%) (Auto) 9.4 0.0-12.0 % Eosinophils (%) (Auto) 1.3 0.0-7.0 % Basophils (%) (Auto) 0.7 0.0-2.0 % Neutrophils # (Auto) 8.0 1.6-8.6 10 ^3/uL Lymphocytes # (Auto) 1.0 0.4-5.4 10 ^3/uL Monocytes # (Auto) 1.0 0-1.3 10 ^3/uL Eosinophils # (Auto) 0.1 0-0.8 10 ^3/uL Basophils # (Auto) 0.1 0-0.2 10 ^3/uL Nucleated Red Blood Cells 0.1 % Sodium Level 141 136-145 mmol/L Potassium Level 3.8 3.5-5.1 mmol/L Chloride Level 103 98-107 mmol/L Carbon Dioxide Level 26 20-31 mmol/L Anion Gap 12 5-15 Blood Urea Nitrogen 63 H 9-23 mg/dL Creatinine 3.97 H 0.700-1.30 mg/dL Glomerular Filtration Rate Calc 18 >90 mL/min BUN/Creatinine Ratio 15.9 10.0-20.0 Serum Glucose 101 74-106 mg/dL Calcium Level 8.8 8.7-10.4 mg/dL Troponin I High Sensitivity 23 </=54 ng/L Assessment 44-year-old male with past medical history of chronic kidney disease and lupus nephritis class 5? Biopsy 2023 presents to the hospital now complaining of severe upper extremity and peripheral swelling. Acute kidney injury on chronic kidney disease stage 4 Lupus nephritis flare? Diastolic heart failure Hypertension Morbid obesity Anemia Agree with diuretic therapy Patient's immunosuppressant agents were resumed. I recommend obtaining outpatient collateral information as patient is a poor historian. He reports that his infection control practitioner in a plane was considering renal biopsy. Presently speaking given poor previous sample and worsening symptoms with unclear response to current therapy I recommend pulse dose steroids and yvan eduling inpatient kidney biopsy. Serologies ordered Low-salt diet Monitoring urinary output Anemia panel Rest of care as per primary medical team No indication for emergent dialysis at this time however we will require close monitoring care time 70mins Plan discussed with: Patient ROSSI CORRALES MD Jan 11, 2025 17:30
[2025-01-11] MEDS: methylPREDNISolone SOD SUCC 500 MG in SODIUM CHL 0.9% 100 ML IV SCH (22:28)
[2025-01-12] VITALS (7 sets, daily range): BP systolic 144–191; BP diastolic 92–122; PULSE 83–93; RESP 17–18; TEMP 96.9–97.9; O2SAT 96–99
[2025-01-12] MEDS: ALLOPURINOL 100 MG TAB PO SCH (05:28)
[2025-01-12] MEDS: KETOROLAC TROMETH 30 MG/ML 1ML VIAL IV ONE (05:28)
[2025-01-12 07:41] LABS: Hematocrit 29.6 % (41.0-53.0); Hemoglobin 9.8 g/dL (13.5-17.5); Mean Corpuscular Hemoglobin 27.7 pg (28.0-32.0); Mean Corpuscular Volume 83.2 fL (80.0-100.0); Nucleated Red Blood Cells % 0.0 %
[2025-01-12 08:00] LABS: Albumin 4.1 g/dL (3.2-4.8); Alkaline Phosphatase 54 U/L (46-116); Anion Gap 16 (5-15); BUN/Creatinine Ratio 13.5 (10.0-20.0); Calcium 9.4 mg/dL (8.7-10.4); Carbon Dioxide 22 mmol/L (20-31); Chloride 102 mmol/L (98-107); Magnesium 1.8 mg/dL (1.6-2.6); Potassium 3.7 mmol/L (3.5-5.1); Sodium 140 mmol/L (136-145); Total Protein 7.2 g/dL (5.7-8.2)
[2025-01-12 08:01] LABS: Bilirubin, Total 1.0 mg/dL (0.2-1.0)
[2025-01-12 08:02] LABS: Alanine Aminotransferase < 9 U/L (7-40); Blood Urea Nitrogen 57 mg/dL (9-23); Glucose 156 mg/dL (74-106)
[2025-01-12] MEDS ORDERED: PRED20TA2 PO ×2 (14:15→14:20)
[2025-01-12] MEDS ORDERED: PANT40TA2 PO (14:17)
--- NOTE | 2025-01-12 14:21 | DVHDS2 ---
Discharge Summary Date of Admission Jan 10, 2025 at 19:37 Date of Discharge: Jan 12, 2025 Labs/Diagnostic Data: Laboratory Results Test 01/12/25 06:50 01/11/25 18:26 01/11/25 15:13 01/11/25 12:00 White Blood Count 12.1 10^3/uL (4.4-10.8) Red Blood Count 3.55 10^6/uL (4.5-5.90) Hemoglobin 9.8 g/dL (13.5-17.5) Hematocrit 29.6 % (41.0-53.0) Mean Corpuscular Volume 83.2 fL (80.0-100.0) Mean Corpuscular Hemoglobin 27.7 pg (28.0-32.0) Mean Corpuscular Hemoglobin Concent 33.3 g/dL (32.0-36.0) Red Cell Distribution Width 16.7 % (11.8-14.3) Platelet Count 222 10^3/uL (140-450) Mean Platelet Volume 8.4 fL (6.9-10.8) Neutrophils (%) (Auto) 94.1 % (37.0-80.0) Lymphocytes (%) (Auto) 4.4 % (10.0-50.0) Monocytes (%) (Auto) 1.4 % (0.0-12.0) Eosinophils (%) (Auto) 0.0 % (0.0-7.0) Basophils (%) (Auto) 0.1 % (0.0-2.0) Neutrophils # (Auto) 11.4 10 ^3/uL (1.6-8.6) Lymphocytes # (Auto) 0.5 10 ^3/uL (0.4-5.4) Monocytes # (Auto) 0.2 10 ^3/uL (0-1.3) Eosinophils # (Auto) 0 10 ^3/uL (0-0.8) Basophils # (Auto) 0 10 ^3/uL (0-0.2) Nucleated Red Blood Cells 0.0 % Sodium Level 140 mmol/L (136-145) Potassium Level 3.7 mmol/L (3.5-5.1) Chloride Level 102 mmol/L (98-107) Carbon Dioxide Level 22 mmol/L (20-31) Anion Gap 16 (5-15) Blood Urea Nitrogen 57 mg/dL (9-23) Creatinine 4.21 mg/dL (0.700-1.30) Glomerular Filtration Rate Calc 17 mL/min (>90) BUN/Creatinine Ratio 13.5 (10.0-20.0) Serum Glucose 156 mg/dL (74-106) Calcium Level 9.4 mg/dL (8.7-10.4) Magnesium Level 1.8 mg/dL (1.6-2.6) Total Bilirubin 1.0 mg/dL (0.2-1.0) Aspartate Amino Transferase (AST) < 8 U/L (13-40) Alanine Aminotransferase (ALT) < 9 U/L (7-40) Alkaline Phosphatase 54 U/L (46-116) Total Protein 7.2 g/dL (5.7-8.2) Albumin 4.1 g/dL (3.2-4.8) Erythrocyte Sedimentation Rate 58 mm/hr (0-20) Uric Acid 16.4 mg/dL (3.7-9.2) Phosphorus Level 4.3 mg/dL (2.4-5.1) Test 01/11/25 04:28 01/10/25 21:33 01/10/25 14:03 B-Type Natriuretic Peptide 599.15 pg/mL (0-100) Urine Color Colorless (Yellow) Urine Clarity Clear (Clear) Urine pH 5.5 (5.0-9.0) Urine Specific [place] 1.008 (1.001-1.035) Urine Protein 1+ (Negative) Urine Ketones Negative (Negative) Urine Blood Negative /uL (Negative) Urine Nitrite Negative (Negative) Urine Bilirubin Negative (Negative) Urine Urobilinogen Normal mg/dL (Negative) Urine Leukocyte Esterase Negative /uL (Negative) Urine Glucose Normal mg/dL (Normal) Troponin I High Sensitivity 23 ng/L (</=54) Other Laboratory Tests 01/12/25 06:50 Brief Hx & Hospital Course: 44-year-old male with a known history of congestive heart failure, hypertension, sleep apnea currently on CPAP at night, morbid obesity classIII, systemic lupus erythematosus/Sjogren syndrome, currently on taper the prednisone presented to the hospital with a generalized body pain muscle aches found to have acute flare of lupus. Patient's was eventually admitted started on IV Solu-Medrol. Nephrology was consulted. Patient was recommended to have kidney biopsy which he does not want it. Patient has stated that he was recommended to have repeat biopsy in the past at [facility] but he did not go. Patient's has a severe noncompliance compliance teaching has been given. Patient will be discharged on prednisone tapering, Protonix, allopurinol for high uric acid. Patient is being discharged under stable condition. Condition at Discharge: Stable Final Diagnosis/Problems List 44-year-old male with a known history of congestive heart failure, hypertension, sleep apnea currently on CPAP at night, morbid obesity classIII, systemic lupus erythematosus/Sjogren syndrome, currently on taper the prednisone presented to the hospital with a generalized body pain muscle aches found to have 1. Acute flare of lupus/Sjogren syndrome 2. Acute on chronic CHF exacerbation with diastolic dysfunction 3. Obesity hypoventilation syndrome/sleep apnea currently on CPAP at night 4. Hypertension 5. AKA with a underlying CKD stage 4 Discharge Disposition: Home SNF Discharge Will this Physician continue t: No Discharge Instruct/Medications Diet: Cardiac 2g Na,low cholest Activity: No Restrictions, As Tolerated Follow Up/Referral: Follow up with the PCP in one week Follow up with the Nephrology in one week Medications: Prednisone as tapered Protonix 40 mg daily while on prednisone. New Medications: Pantoprazole Sodium Sesquihydr (Protonix) 40 Mg Tab 40 MG PO DAILY for 30 Days, #30 TAB Prednisone (Prednisone) 20 Mg Tab 20 MG PO DAILY, #25 MG Take two tablets daily for 14 days and then Take one tablet daily for seven days and then Take half tab daily for seven days. Continued Medications: Aspirin (Aspirin Adult Low Dose) 81 Mg Tab 1 TAB PO DAILY Carvedilol (Carvedilol) 25 Mg Tab 25 MG PO Q12HR for 30 Days, MG Chlorthalidone (Chlorthalidone) 25 Mg Tab 1 TAB PO DAILY Cholecalciferol (Vitamin D3) 5,000 Unit Cap 1 CAP PO DAILY Clonidine Hydrochloride (Clonidine Hcl) 0.1 Mg Tab 1 TAB PO BID Furosemide (Furosemide) 40 Mg Tab 2 TAB PO DAILY Hydrocodone-Acetaminophen (Hydrocodone Bitartrate/AC 5-325 mg) 1 Tab Tab 1 TAB PO Q4HP PRN, #20 TAB Hydroxychloroquine Sulfate (Hydroxychloroquine Sulfat) 200 Mg Tab 1 TAB PO BID Mycophenolate Mofetil (Mycophenolate Mofetil) 500 Mg Tab 1 TAB PO BID Discontinued Medications: Prednisone (Prednisone) 10 Mg Tab 6 TAB PO DAILY Scheduled Allopurinol (Allopurinol), 300 MG PO DAILY Aspirin (Aspirin Adult Low Dose), 1 TAB PO DAILY, (Reported) Carvedilol (Carvedilol), 25 MG PO Q12HR, (Reported) Chlorthalidone (Chlorthalidone), 1 TAB PO DAILY, (Reported) Cholecalciferol (Vitamin D3), 1 CAP PO DAILY, (Reported) Clonidine Hydrochloride (Clonidine Hcl), 1 TAB PO BID, (Reported) Furosemide (Furosemide), 2 TAB PO DAILY, (Reported) Hydroxychloroquine Sulfate (Hydroxychloroquine Sulfat), 1 TAB PO BID, (Reported) Mycophenolate Mofetil (Mycophenolate Mofetil), 1 TAB PO BID, (Reported) Pantoprazole Sodium Sesquihydr (Protonix), 40 MG PO DAILY Prednisone (Prednisone), 6 TAB PO DAILY, (Reported) Prednisone (Prednisone), 20 MG PO DAILY Scheduled PRN Hydrocodone-Acetaminophen (Hydrocodone Bitartrate/AC 5-325 mg), 1 TAB PO Q4HP PRN Discharge Statement: "Patient was advised to return to the ER or call 911 if any headaches, dizziness, shortness of breath, chest pain, abdominal pain, bleeding, fevers, or worsening of medical condition. Patient was counseled about treatment plan, medications, possible side effects, patientverbalized understanding. All questions were answered to the best of my ability. This discharge took greater then 30 minutes in planning, reviewing documentation, counseling the patient, and discussing with other team members." ASSESSMENT ASSESSMENT Assessment 44-year-old male with a known history of congestive heart failure, hypertension, sleep apnea currently on CPAP at night, morbid obesity classIII, systemic lupus erythematosus/Sjogren syndrome, currently on taper the prednisone presented to the hospital with a generalized body pain muscle aches found to have 1. Acute flare of lupus/Sjogren syndrome 2. Acute on chronic CHF exacerbation with diastolic dysfunction 3. Obesity hypoventilation syndrome/sleep apnea currently on CPAP at night 4. Hypertension 5. AKA with a underlying CKD stage 4 Date of Service: Jan 12, 2025 Billing Provider: GAURAV HUNTLEY MD Common Visit Codes: 36988-NCA/OBS DISCH DAY >30min GAURAV HUNTLEY MD Jan 12, 2025 14:21
--- NOTE | 2025-01-12 14:40 | DVHPN2 ---
Progress Note Date Seen: Jan 12, 2025 Medical Necessity Reason Pt with a Central, PICC or Fol: No Subjective Patient reports: Feels better, Other (Patient and bedside patient says he is able to walk better now his swelling is resolved his joint pains are resolved) Review of Systems: HEENT:Normal, CVS:Normal, RESPIRATORY:Normal, GI:Normal, :Normal, MSK:Normal, NEURO:Normal Objective vital signs Vital Sign Date Time Temp Pulse Resp B/P (MAP) Pulse Ox O2 Delivery O2 Flow Rate FiO2 01/12/25 13:29 86 17 144/92 (109) 99 01/12/25 09:08 96.9 96.9 01/11/25 20:00 Room Air* 0 21 Total Intake and Output 01/11/25 01/11/25 01/12/25 15:00 23:00 07:00 Intake Total 500 ml 622 ml Output Total 2000 ml 720 ml Balance -1500 ml -98 ml medications Current Medications Medications Dose Ordered Sig/Yvan Route Start Time Stop Time Status Last Admin Dose Admin Furosemide 40 mg BIDD IV 01/11/25 06:00 01/12/25 05:29 40 MG Prednisone 20 mg DAILY PO 01/11/25 10:00 Hold 01/11/25 09:51 20 MG Sodium Chloride 10 ml Q8HR IV 01/10/25 22:00 01/12/25 14:32 10 ML Docusate Sodium 100 mg BIDPRN PRN PO 01/10/25 19:45 Acetaminophen 650 mg Q6HP PRN PO 01/10/25 19:45 Acetaminophen/ Hydrocodone Bitart 1 tab Q4HP PRN PO 01/10/25 19:45 01/11/25 18:52 1 TAB Ondansetron HCl 4 mg Q4HP PRN IV 01/10/25 19:45 Aspirin 81 mg DAILY PO 01/11/25 10:00 01/12/25 09:50 81 MG Clonidine HCl 0.1 mg BID PO 01/10/25 22:00 01/12/25 09:51 0.1 MG Hydroxychloroquine Sulfate 200 mg BID PO 01/10/25 22:00 01/12/25 09:50 200 MG Mycophenolate Mofetil 500 mg BID PO 01/10/25 22:00 01/12/25 10:02 500 MG Carvedilol 25 mg Q12HR PO 01/10/25 22:00 01/12/25 09:51 25 MG Cholecalciferol 5,000 unit DAILY PO 01/11/25 10:00 01/12/25 09:52 5,000 UNIT Hydralazine HCl 10 mg Q6HP PRN IV 01/10/25 19:45 01/12/25 05:28 10 MG Methylprednisolone Sodium Succinate 500 mg/Sodium Chloride 100 ml @ 200 mls/hr DAILY IV 01/11/25 17:30 01/14/25 17:29 01/12/25 09:49 200 MLS/HR Allopurinol 100 mg DAILY PO 01/11/25 23:45 01/12/25 05:28 100 MG Examination: GENERAL:Normal, HEENT:Normal, NECK:Normal, LUNGS:Normal, CVS:Normal, ABDOMEN:Normal, MSK:Normal, SKIN:Normal, NEURO:Normal, :Normal laboratory and microbiology Laboratory Tests 01/12/25 06:50 Test 01/12/25 06:50 Range/Units Serum Glucose 156 H 74-106 mg/dL Problem List/Assessment/Plan Problem List/Assessment/Plan Acute kidney injury on chronic kidney disease stage 4 -hemodynamic mediated etiology Lupus nephritis ---class 5 in 2023, has severe ifta on biopsy-----currently on Benlysta, mycophenolate, Plaquenil and prednisone as outpatient Diastolic heart failure Hypertension Morbid obesity Anemia Recommendations Patient receiving pulse dose steroids He is wanting to go home---per radiology patient took aspirin and biopsy can not be done at this point need to wait 5 days at least---patient said his sales associate cashier in [place] has already arranged outpatient biopsy for him and he wishes to get there---- also confirmed the same Recommend oral steroids and discharge Recommend allopurinol on discharge follow With his private industrial safety and health specialist and sales associate cashier after discharge Discussed with hospitalist Plan discussed with: Patient, Spouse Total Time (mins): 50 KRUPA MC MD Jan 12, 2025 14:40
[2025-01-12] MEDS ORDERED: ALLO300T2 PO (15:10)
[2025-01-13 08:07] LABS: Antistreptolysin O Antibody 269.0 IU/mL (0.0-200.0)
[2025-01-13 12:07] LABS: Anti-Centromere B Antibody <0.2 AI (0.0-0.9); Anti-Jo-1 Antibody <0.2 AI (0.0-0.9); Anti-Nuclear Antibody Direct Positive (Negative); Anti-dsDNA Antibody <1 IU/mL (0-9); Antichromatin Antibody <0.2 AI (0.0-0.9); Antiscleroderma-70 Antibody <0.2 AI (0.0-0.9); Sjogren's Anti-SS-A Antibody 4.5 AI (0.0-0.9); Sjogren's Anti-SS-B Antibody <0.2 AI (0.0-0.9)
[2025-01-14 16:06] LABS: Antiglomerular BM Antibody <0.2 units (0.0-0.9)
== END 2025-01-12 16:20 | disposition home or self-care (01) | DRG 346 ==
LOC: ER 13:08 → OVERFLOW 19:37 → TELE-WESTW 22:07
PROVIDERS: ADMIT Hospitalist; ATTEND Hospitalist
DX: M32.14 Glomerular disease in systemic lupus erythematosus (principal); I50.33 Acute on chronic diastolic (congestive) heart failure; N17.9 Acute kidney failure, unspecified; E66.2 Morbid (severe) obesity with alveolar hypoventilation; M35.00 Sjogren syndrome, unspecified; N18.4 Chronic kidney disease, stage 4 (severe); I13.0 Hypertensive heart and chronic kidney disease with heart failure and stage 1 through stage 4 chronic kidney disease, or unspecified chronic kidney disease; F17.210 Nicotine dependence, cigarettes, uncomplicated; D64.9 Anemia, unspecified; Z79.899 Other long term (current) drug therapy; Z79.82 Long term (current) use of aspirin; Z86.73 Personal history of transient ischemic attack (TIA), and cerebral infarction without residual deficits; Z91.199 Patient's noncompliance with other medical treatment and regimen due to unspecified reason; Z68.42 Body mass index [BMI] 45.0-49.9, adult
CPT/HCPCS: 36415; 71045; 80048; 80053; 81003; 83516; 83520; 83735; 83880; 84100; 84484; 84550; 85025; 85652; 86038; 86160; 86225; 86235; 86256; 93306; 96374; 96375; 99291; 99292; G0378; J1885; J7517

== ENCOUNTER 2025-02-16 18:59 | Inpatient (IN) | payer MEDICAID ==
[~2025-02-16] VITALS: Ht 188 cm; Wt 158.7 kg
[~2025-02-16 18:59] MED LIST changes: +ALLO300T2 PO; +PANT40TA2 PO; -PRED10TA PO; +PRED20TA2 PO
--- NOTE | 2025-02-16 20:32 | ED.PDOC ---
Eye-HPI HPI Comments 44-year-old male who presents with spouse from urgent care for chief complaint of right facial swelling and pain, with the associated limited jaw range of motion, dizziness, nausea, and vomiting. Per spouse, patient was referred from urgent care facility that he was seen for symptoms, earlier, today, for swelling near his right parotid gland. Endorsement of 4 history of symptoms following initial, unprovoked and atraumatic onset. No improvement or relief with [id number] ibuprofen pain medication use; last oral intake was last night, yesterday. Significant history for CHF, CKD, HTN, gout, and lupus. Patient denies having any dental pain, tongue or throat swelling, shortness of breath, or further associated symptoms. REVIEW OF SYSTEMS: General: No fever, no chills, HEENT: No neck pain, no blurred vision. Right facial swelling and pain, with the associated limited jaw range of motion Cardiac: No chest pain. No palpitations. Lungs: No shortness of breath, GI: Nausea and vomiting. No abdominal pain Musculoskeletal: No joint pain , no back pain Skin: No rash, no wound Neuro: Dizziness. No headache, no syncope PHYSICAL EXAM: General: Awake, alert and oriented. No acute distress. Skin: Skin in warm, dry and intact without rashes or lesions. HEENT: Swelling and tenderness to the right parotid area, no dental pain, abscess, or caries; no submental induration, no tongue swelling, no stridor, no drooling. Otherwise, the head is normocephalic and atraumatic. Conjunctivae are clear without exudates or hemorrhage. Sclera is non-icteric. Neck: Normal range of motion. No JVD. Cardiac: Regular rate Respiratory: No signs of respiratory distress. No Stridor. Extremities: Upper and lower extremities are atraumatic in appearance without deformity. Neurological: The patient is awake, alert and oriented to person, place, and time with normal speech. Speech is clear. There is no facial asymmetry. Psychiatric: Appropriate mood and affect. Good judgement and insight. Chief Complaint: Dizziness Time Seen by MD: 20:10 Primary Care Provider: DR RODRÍGUEZ Allergies: Coded Allergies: NO KNOWN ALLERGIES (Unverified , 01/02/23) Home Meds Active Scripts Allopurinol (Allopurinol) 300 Mg Tab, 300 MG PO DAILY, #30 TAB Prov:GAURAV HUNTLEY MD 01/12/25 Prednisone (Prednisone) 20 Mg Tab, 20 MG PO DAILY, #25 MG Take two tablets daily for 14 days and then Take one tablet daily for seven days and then Take half tab daily for seven days. Prov:GAURAV HUNTLEY MD 01/12/25 Pantoprazole Sodium Sesquihydr (Protonix) 40 Mg Tab, 40 MG PO DAILY for 30 Days, #30 TAB Prov:GAURAV HUNTLEY MD 01/12/25 Hydrocodone-Acetaminophen (Hydrocodone Bitartrate/AC 5-325 mg) 1 Tab Tab, 1 TAB PO Q4HP PRN, #20 TAB Prov:BYRON JEAN MD 04/23/24 Reported Medications Hydroxychloroquine Sulfate (Hydroxychloroquine Sulfat) 200 Mg Tab, 1 TAB PO BID 04/21/24 Cholecalciferol (VITAMIN D3) 5,000 Unit Cap, 1 CAP PO DAILY 04/21/24 Mycophenolate Mofetil (Mycophenolate Mofetil) 500 Mg Tab, 1 TAB PO BID 04/21/24 Chlorthalidone (Chlorthalidone) 25 Mg Tab, 1 TAB PO DAILY 02/01/24 Furosemide (Furosemide) 40 Mg Tab, 2 TAB PO DAILY 02/01/24 Aspirin (Aspirin Adult Low Dose) 81 Mg Tab, 1 TAB PO DAILY 02/01/24 Clonidine Hydrochloride (Clonidine Hcl) 0.1 Mg Tab, 1 TAB PO BID 02/01/24 Carvedilol (Carvedilol) 25 Mg Tab, 25 MG PO Q12HR for 30 Days, MG 02/01/24 Mode of Arrival: Ambulatory Past Medical History PAST MEDICAL HISTORY: CHF, CKF, CVA, Gout, HTN Past Medical History (Other): Lupus Surgical History: Denies all surgeries Family History Family History: Reviewed,noncontributory to illness Social History Smoker: Cigarettes Alcohol: Occasionally Drugs: Marijuana Lives In: Home Was a procedure done? Was a procedure done?: No EENT DIFF Eye: N/A Ear: N/A Nose: N/A Mouth: N/A X-Ray, Labs, Meds, VS Vital Signs Date Time Temp Pulse Resp B/P (MAP) Pulse Ox O2 Delivery O2 Flow Rate FiO2 02/17/25 01:56 98.5 98 17 178/120 (139) 94 98.5 02/16/25 21:34 98.4 86 18 161/112 (128) 97 98.4 02/16/25 21:18 98.2 96 14 174/120 (138) 96 98.2 02/16/25 21:10 96 17 174/120 02/16/25 19:01 98.3 87 18 148/101 96 98.3 Lab Test 02/16/25 20:33 02/16/25 20:23 Range/Units Lactic Acid Level 0.7 0.4-2.0 mmol/L White Blood Count 14.9 H 4.4-10.8 10^3/uL Red Blood Count 3.77 L 4.5-5.90 10^6/uL Hemoglobin 10.5 L 13.5-17.5 g/dL Hematocrit 32.4 L 41.0-53.0 % Mean Corpuscular Volume 85.9 80.0-100.0 fL Mean Corpuscular Hemoglobin 27.8 L 28.0-32.0 pg Mean Corpuscular Hemoglobin Concent 32.3 32.0-36.0 g/dL Red Cell Distribution Width 20.0 H 11.8-14.3 % Platelet Count 297 140-450 10^3/uL Mean Platelet Volume 8.0 6.9-10.8 fL Neutrophils (%) (Auto) 37.0-80.0 % Lymphocytes (%) (Auto) 10.0-50.0 % Monocytes (%) (Auto) 0.0-12.0 % Basophils (%) (Auto) 0.0-2.0 % Neutrophils # (Auto) 1.6-8.6 10 ^3/uL Lymphocytes # (Auto) 0.4-5.4 10 ^3/uL Monocytes # (Auto) 0-1.3 10 ^3/uL Differential Total Cells Counted 100.0 100 Neutrophils % (Manual) 68 37.0-80.0 Band Neutrophils % (Manual) 5 Lymphocytes % (Manual) 7 L 10.0-50.0 Monocytes % (Manual) 8 0-12 Eosinophils % (Manual) 10 H 0-7 Basophils % (Manual) 0 0.0-2.0 Metamyelocytes % (manual) 1 Myelocytes % (Manual) 1 Promyelocytes % (Manual) 0 Blast Cells % (Manual) 0 Nucleated Red Blood Cells 2.0 % Reactive Lymphocytes 0 Platelet Estimate Adequate Anisocytosis (manual) Moderate Sodium Level 140 136-145 mmol/L Potassium Level 4.7 3.5-5.1 mmol/L Chloride Level 103 98-107 mmol/L Carbon Dioxide Level 24 20-31 mmol/L Anion Gap 13 5-15 Blood Urea Nitrogen 50 H 9-23 mg/dL Creatinine 6.26 H 0.700-1.30 mg/dL Glomerular Filtration Rate Calc 11 >90 mL/min BUN/Creatinine Ratio 8.0 L 10.0-20.0 Serum Glucose 95 74-106 mg/dL Calcium Level 8.7 8.7-10.4 mg/dL Current Medications Medications (Trade) Dose Ordered Sig/Yvan Route Start Time Stop Time Status Last Admin Morphine Sulfate 4 mg ONCE ONCE IV 02/16/25 20:15 02/16/25 20:16 DC 02/16/25 21:10 [place] [id number] Ph: [phone] DIAGNOSTIC IMAGING Diagnostic Imaging Report : [id number] Signed PATIENT: SVEN MCKINLEY ACCT: [id number] UNIT: [id number] : 1980 LOC: ER ROOM / BED: / AGE / SEX: 44 / M ADM STATUS: REG ER SERVICE 06 ORDERING PHYSICIAN: VIKI CASTAÑEDA MD PROCEDURE(s): FAC2C - MAXILLOFACIAL WITHOUT REASON: Right mandible swelling/pain ORDER NUMBER(s): [id number], ACCESSION NUMBER(s): [id number] HISTORY: Right mandible swelling/pain TECHNIQUE: Nonenhanced axial images through the facial bones with coronal and sagittal MPR. Radiation Dose Information: CT Dose: CTDI volume is 66.97 mGy. Dose-length product is 1363.97 mGy*cm FINDINGS: Mandible: Enlargement of the right parotid gland with surrounding inflammatory changes. No calcifications in the right parotid gland. Maxilla: No fractures no air-fluid levels Pterygoid plates: Intact bilateral Zygomatic processes: Intact bilaterally. Zygomatic arches: Fractures bilaterally Orbits: Normal bilaterally Sinuses: No mucosal thickening or air-fluid levels Facial swelling: Right parotid swelling inflammatory changes in subcutaneous fat suggesting parotitis IMPRESSION: 1. Enlargement of the right parotid gland with surrounding inflammatory changes. 2. No calcifications in the right parotid gland. Radiation optimization: All CT scans at this facility use at least one of these dose optimization techniques: automated exposure control mA and/or kV adjustment per patient size (includes targeted exams where dose is matched to clinical indication) or iterative reconstruction. ATED BY: TRISTIN GARG Jr., DO DICTATED DATE/TIME: 02/16/252224 SIGNED BY: TRISTIN GARG Jr., SIGNED DATE/TIME: 02/16/252224 CC: Time of 1ST Reevaluation: 20:40 Reevaluation 1ST: Unchanged Patient Education/Counseling: Treatment Family Education/Counseling: Treatment SEPSIS Sepsis Screen Date sepsis recognized/suspect: Feb 16, 2025 Time Sepsis recognized/suspect: 1900 Recent Procedure: No On Antibiotic Therapy: No Respiratory Rate >20: No Heart Rate >90: No Temp<36 C (96.8 F) or >38.3 C: No SBP <90 or MAP <65 mmHG: No New Acute Mental Status Change: No Is the patient on CPAP, BIPAP,: No Physician Orders Saline Lock (02/16/25 20:07) Maxillofacial Without (02/16/25 20:07) Sodium Chloride 0.9% (02/17/25 01:15) Vital Signs Date Time Temp Pulse Resp B/P (MAP) Pulse Ox O2 Delivery O2 Flow Rate FiO2 02/17/25 01:56 98.5 98 17 178/120 (139) 94 98.5 02/16/25 21:34 98.4 86 18 161/112 (128) 97 98.4 02/16/25 21:18 98.2 96 14 174/120 (138) 96 98.2 02/16/25 21:10 96 17 174/120 02/16/25 19:01 98.3 87 18 148/101 96 98.3 Laboratory Tests Test 02/16/25 20:23 02/16/25 20:33 White Blood Count 14.9 10^3/uL (4.4-10.8) H Lactic Acid Level 0.7 mmol/L (0.4-2.0) Medications Medications Dose Ordered Sig/Yvan Route Start Time Stop Time Status Last Admin Dose Admin Morphine Sulfate 4 mg ONCE ONCE IV 02/16/25 20:15 02/16/25 20:16 DC 02/16/25 21:10 Departure 1 Departure Time of Disposition: 01:13 Impression: Primary Impression: BERNICE (acute kidney injury) Additional Impression: Parotitis Disposition: ADMITTED INPATIENT Condition: Stable Comments MDM: PATIENT ADMITTED TO HOSPITALIST SERVICE FOR FURTHER TREATMENT, EVALUATION AND MONITORING. Extensive evaluation was performed in attempt to identify or rule out: (See differential diagnosis section) The following tests were ordered, and results were reviewed by me and discussed with patient: (See diagnostic results section) The following test were independently interpreted by me: N/A I reviewed and agreed with the following test results read by other providers: CT maxillofacial with contrast I reviewed the following notes from the pt's past medical encounters: January 10, 2025 encounter for CHF exacerbation and BERNICE on CKD Additional information was gathered from interviewing the following independent historians: Discussion of management or test interpretation with external physician/other qualified health behavioral health care manager: N/A Decision regarding hospitalization or escalation of hospital level of care: Risk and benefits of admission for further treatment of patient's condition was considered. Due to patient's current clinical condition, high risk of decline and poor outcome if discharged and need for further inpatient management and monitoring, patient will be admitted to the hospital. Critical Care Note Critical Care Time?: No Stability Stability form required: No Heart Score Heart Score: Heart Score Response (Comments) Value History N/A 0 EKG N/A 0 Age N/A 0 Risk Factors N/A 0 Troponin N/A 0 Total 0 I personally scribed for VIKI CASTAÑEDA MD ([email or web address]) on 02/16/25 at 20:32. Electronically submitted by Wayne Aleman ([email or web address]). I personally scribed for VIKI CASTAÑEDA MD ([email or web address]) on 02/17/25 at 03:57. Electronically submitted by Wayne Aleman ([email or web address]). VIKI CASTAÑEDA MD Feb 16, 2025 20:32
[2025-02-16 20:56] LABS: Hematocrit 32.4 % (41.0-53.0); Hemoglobin 10.5 g/dL (13.5-17.5); Mean Corpuscular Hemoglobin 27.8 pg (28.0-32.0); Mean Corpuscular Volume 85.9 fL (80.0-100.0)
[2025-02-16 21:03] LABS: Chloride 103 mmol/L (98-107); Potassium 4.7 mmol/L (3.5-5.1); Sodium 140 mmol/L (136-145)
[2025-02-16 21:04] LABS: Anion Gap 13 (5-15); Carbon Dioxide 24 mmol/L (20-31)
[2025-02-16 21:09] LABS: BUN/Creatinine Ratio 8.0 (10.0-20.0); Glucose 95 mg/dL (74-106)
[2025-02-16] MEDS: MORPHINE SULFATE INJ 2 MG/ml SYRG IV ONE (21:10)
[2025-02-16 21:33] LABS: Blood Urea Nitrogen 50 mg/dL (9-23); Calcium 8.7 mg/dL (8.7-10.4)
[2025-02-16 21:51] LABS: Total Cells Counted 100.0 (100)
[2025-02-16 21:52] LABS: Anisocytosis Moderate
[2025-02-16 21:55] LABS: Nucleated Red Blood Cells % 2.0 %
--- NOTE | 2025-02-16 22:27 | DVH ---
HISTORY: Right mandible swelling/pain TECHNIQUE: Nonenhanced axial images through the facial bones with coronal and sagittal MPR. Radiation Dose Information: CT Dose: CTDI volume is 66.97 mGy. Dose-length product is 1363.97 mGy*cm FINDINGS: Mandible: Enlargement of the right parotid gland with surrounding inflammatory changes. No calcifica tions in the right parotid gland. Maxilla: No fractures no air-fluid levels Pterygoid plates: Intact bilateral Zygomatic processes: Intact bilaterally. Zygomatic arches: Fractures bilaterally Orbits: Normal bilaterally Sinuses: No mucosal thickening or air-fluid levels Facial swelling: Right parotid swelling inflammatory changes in subcutaneous fat suggesting parotiti s IMPRESSION: 1. Enlargement of the right parotid gland with surrounding inflammatory changes. 2. No calcifications in the right parotid gland. Radiation optimization: All CT scans at this facility use at least one of these dose optimization alexx hniques: automated exposure control mA and/or kV adjustment per patient size (includes targeted exam s where dose is matched to clinical indication) or iterative reconstruction.
[2025-02-17] MEDS: AMPICILLIN & SULBACTAM SODIUM 3 GM in SODIUM CHL 0.9% 100 ML IV STA (01:12)
[2025-02-17] MEDS: SODIUM CHLORIDE 0.9% 1,000 ML IV ONE ×2 (01:15→18:45)
[2025-02-17] MEDS: MORPHINE SULFATE INJ 2 MG/ml SYRG IV ONE (06:20)
[2025-02-17] MEDS ORDERED: NITROGLYCERIN 0.4 MG SL TAB SL PRN (08:00)
[2025-02-17] MEDS ORDERED: ONDANSETRON HCL 4 MG/2 ML VIAL IV PRN (08:00)
[2025-02-17] MEDS ORDERED: ACETAMINOPHEN 325 MG TAB PO PRN (08:00)
[2025-02-17] MEDS ORDERED: MORPHINE SULFATE INJ 2 MG/ml SYRG IV PRN (08:00)
[2025-02-17] MEDS ORDERED: DOCUSATE SOD 100 MG CAP PO PRN (08:00)
[2025-02-17] MEDS ORDERED: GAB100C PO (08:01)
--- NOTE | 2025-02-17 08:05 | DVHHP2 ---
History of Present Illness Reason for Visit: Swollen face History of Present Illness Wilman Mejía is a 44-year-old male with past medical history of chronic kidney disease, lupus, hypertension, CHF, obesity, and gout, who came to the hospital due to the right side of his face being swollen. Patients states the swelling began a couple days ago, it was worsening prompting him to come to the hospital. He states it is now so severe that he feels like he is having a hard time hearing out of his right ear. Patient has a history of lupus, is taking immunosuppressant medications. States he ran out of his prednisone about 9 days ago, but that he likes the way he feels better off of it and does not want to continue it right now. Cardiovascular: CHF, HTN Rheumatologic: Gout, Other (Lupus) Renal/: Chronic renal insuff Past Surgical History: None Smoke: <1 pack per day ALCOHOL: rare Drugs: Marijuana Lives: with Family Domestic Violence: Neg Review of Systems Constitutional: No: Fever, Chills, Sweats, Weakness, Malaise, Other Eyes: No: Pain, Vision change, Conjunctivae inflammation, Eyelid inflammation, Other, Redness ENT: Other (right side of face swollen, difficulty hearing out of right ear ); No: Ear pain, Ear discharge, Nose pain, Nose discharge, Nose congestion, Mouth pain, Mouth swelling, Throat pain, Throat swelling Respiratory: No: Cough, Dry, Shortness of breath, SOB with excertion, Wheezing, Hemoptysis, Pleuritic Pain, Sputum, Wheezing, Other Cardiovascular: No: Chest Pain, Palpitations, Orthopnea, Paroxysmal Noc. Dys pnea, Edema, Lt Headedness, Other Gastrointestinal: No: Nausea, Vomiting, Abdominal Pain, Diarrhea, Constipation, Melena, Hematochezia, Other Genitourinary: No Dysuria, No Frequency, No Incontinence, No Hematuria, No Retention, No Other Musculoskeletal: No: other, neck pain, shoulder pain, arm pain, back pain, hand pain, leg pain, foot pain Skin: No: Rash, Lesions, Jaundice, Bruising, Other Neurological: No: Weakness, Numbness, Incoordination, Change in speech, Confusion, Seizures, Other Allergies: Coded Allergies: NO KNOWN ALLERGIES (Unverified , 01/02/23) Medications Current Medications Medications Dose Ordered Sig/Yvan Route Start Time Stop Time Status Last Admin Dose Admin Acetaminophen/ Hydrocodone Bitart 1 tab Q4HP PRN PO 02/17/25 08:00 UNV Ondansetron HCl 4 mg Q4HP PRN IV 02/17/25 08:00 UNV Docusate Sodium 100 mg BIDPRN PRN PO 02/17/25 08:00 UNV Acetaminophen 650 mg Q6HP PRN PO 02/17/25 08:00 UNV Nitroglycerin 0.4 mg Q5MINP PRN SL 02/17/25 08:00 UNV Morphine Sulfate 2 mg Q30M PRN IV 02/17/25 08:00 UNV Exam Vital Signs Vital Signs Date Time Temp Pulse Resp B/P (MAP) Pulse Ox O2 Delivery O2 Flow Rate FiO2 02/17/25 06:20 104 18 189/114 02/17/25 01:56 98.5 94 98.5 General Appearance: Alert, Oriented X3, Cooperative, moderate distress, Other (Right side of face and neck swollen) HEENT: Atraumatic, PERRLA Respiratory: Clear to auscultation, Normal air movement Cardiovascular: Regular rate, Normal S1, Normal S2, No murmurs, Other (Hypertensive) Abdominal: Normal bowel sounds, Soft, No tenderness, No hepatospenomegaly Extremities: No clubbing, No cyanosis, No edema, Normal pulses, No tenderness/swelling Skin: No rashes, No breakdown, No significant lesion Neuro: Normal gait, Normal speech, Strength at 5/5 X4 ext Psych/Mental Status: Mental status NL, Mood NL Labs/Xrays Labs Test 02/16/25 20:33 02/16/25 20:23 Range/Units Lactic Acid Level 0.7 0.4-2.0 mmol/L White Blood Count 14.9 H 4.4-10.8 10^3/uL Red Blood Count 3.77 L 4.5-5.90 10^6/uL Hemoglobin 10.5 L 13.5-17.5 g/dL Hematocrit 32.4 L 41.0-53.0 % Mean Corpuscular Volume 85.9 80.0-100.0 fL Mean Corpuscular Hemoglobin 27.8 L 28.0-32.0 pg Mean Corpuscular Hemoglobin Concent 32.3 32.0-36.0 g/dL Red Cell Distribution Width 20.0 H 11.8-14.3 % Platelet Count 297 140-450 10^3/uL Mean Platelet Volume 8.0 6.9-10.8 fL Neutrophils (%) (Auto) 37.0-80.0 % Lymphocytes (%) (Auto) 10.0-50.0 % Monocytes (%) (Auto) 0.0-12.0 % Basophils (%) (Auto) 0.0-2.0 % Neutrophils # (Auto) 1.6-8.6 10 ^3/uL Lymphocytes # (Auto) 0.4-5.4 10 ^3/uL Monocytes # (Auto) 0-1.3 10 ^3/uL Differential Total Cells Counted 100.0 100 Neutrophils % (Manual) 68 37.0-80.0 Band Neutrophils % (Manual) 5 Lymphocytes % (Manual) 7 L 10.0-50.0 Monocytes % (Manual) 8 0-12 Eosinophils % (Manual) 10 H 0-7 Basophils % (Manual) 0 0.0-2.0 Metamyelocytes % (manual) 1 Myelocytes % (Manual) 1 Promyelocytes % (Manual) 0 Blast Cells % (Manual) 0 Nucleated Red Blood Cells 2.0 % Reactive Lymphocytes 0 Platelet Estimate Adequate Anisocytosis (manual) Moderate Sodium Level 140 136-145 mmol/L Potassium Level 4.7 3.5-5.1 mmol/L Chloride Level 103 98-107 mmol/L Carbon Dioxide Level 24 20-31 mmol/L Anion Gap 13 5-15 Blood Urea Nitrogen 50 H 9-23 mg/dL Creatinine 6.26 H 0.700-1.30 mg/dL Glomerular Filtration Rate Calc 11 >90 mL/min BUN/Creatinine Ratio 8.0 L 10.0-20.0 Serum Glucose 95 74-106 mg/dL Calcium Level 8.7 8.7-10.4 mg/dL HISTORY: Right mandible swelling/pain FINDINGS: Mandible: Enlargement of the right parotid gland with surrounding inflammatory changes. No calcifications in the right parotid gland. Maxilla: No fractures no air-fluid levels Pterygoid plates: Intact bilateral Zygomatic processes: Intact bilaterally. Zygomatic arches: Fractures bilatera lly Orbits: Normal bilaterally Sinuses: No mucosal thickening or air-fluid levels Facial swelling: Right parotid swelling inflammatory changes in subcutaneous fat suggesting parotitis IMPRESSION: 1. Enlargement of the right parotid gland with surrounding inflammatory changes. 2. No calcifications in the right parotid gland. SEPSIS Sepsis Screen Date sepsis recognized/suspect: Feb 16, 2025 Time Sepsis recognized/suspect: 1900 Recent Procedure: No On Antibiotic Therapy: No Respiratory Rate >20: No Heart Rate >90: No Temp<36 C (96.8 F) or >38.3 C: No SBP <90 or MAP <65 mmHG: No New Acute Mental Status Change: No Is the patient on CPAP, BIPAP,: No Physician Orders Sodium Chloride 0.9% (02/17/25 01:15) Admit (02/17/25 07:53) Code Status (02/17/25 07:53) Renal Standard(2gna,3gk,Lopho) (02/17/25 Breakfast) Hydrocodone-Acet 5/325mg Tab (Petty 5/32 (02/17/25 08:00) Ondansetron Hcl (Zofran) (02/17/25 08:00) Docusate Sodium Capsule (Colace Capsule) (02/17/25 08:00) Complete Blood Count (02/18/25 04:00) Comprehensive Metabolic Panel (02/18/25 04:00) Condition: Serious (02/17/25 07:53) Acetaminophen Tablet (Tylenol Tablet) (02/17/25 08:00) Nitroglycerin Sublingual (Ntrostat Subli (02/17/25 08:00) Morphine Sulfate Injection (02/17/25 08:00) Stat Ekg For Chest Pain (02/17/25 07:53) Notify Md Of Changes From Base (02/17/25 07:53) Fuel Storage Technician For 24 Hours (02/17/25 07:53) Emergency Dysrhythmia Protocol (02/17/25 07:53) Rhythm Strips Once Every Shift (02/17/25 07:53) Oxygen By Nasal Cannula (02/17/25 07:53) Aspirin Enteric Coated Tablet (Ecotrin E (02/17/25 10:00) Clonidine Hcl Tablet (Catapres Tablet) (02/17/25 10:00) Furosemide Tablet (Lasix Tablet) (02/17/25 10:00) Hydroxychloroquine Tablet (Plaquenil Tab (02/17/25 10:00) Mycophenolate Mofetil (Cellcept) (02/17/25 10:00) Pantoprazole Tablet (Protonix Tablet) (02/17/25 10:00) (Nf) Carvedilol (02/17/25 10:00) (Nf) Cholecalciferol (Vitamin D3) (02/17/25 10:00) Chlorthalidone (Chlorthalidone) (02/17/25 10:00) Warm Compresses (02/17/25 08:01) Vital Signs Date Time Temp Pulse Resp B/P (MAP) Pulse Ox O2 Delivery O2 Flow Rate FiO2 02/17/25 06:20 104 18 189/114 02/17/25 01:56 98.5 98 17 178/120 (139) 94 98.5 Laboratory Tests Test 02/16/25 20:23 02/16/25 20:33 White Blood Count 14.9 10^3/uL (4.4-10.8) H Lactic Acid Level 0.7 mmol/L (0.4-2.0) Medications Medications Dose Ordered Sig/Yvan Route Start Time Stop Time Status Last Admin Dose Admin Morphine Sulfate 2 mg ONCE ONCE IV 02/17/25 01:30 02/17/25 01:31 DC 02/17/25 06:20 2 MG Morphine Sulfate 4 mg ONCE ONCE IV 02/16/25 20:15 02/16/25 20:16 DC 02/16/25 21:10 4 MG Assessment/Plan Assessment/Plan Assessment: BERNICE (acute kidney injury), Parotitis, Uncontrolled hypertension, Leukocytosis, Lupus, Plan: Admit to Tele, Nephrology consult, IV antibiotics, Warm compress, PRN antihypertensives, Home medications reconciled, Plan discussed with: Patient My Orders Orders - YVETTE SCHNEIDER Procedure Category Date Status Time Admit ADMIT 02/17/25 Transmitted 07:53 Code Status CODE 02/17/25 Transmitted 07:53 Renal DIET 02/17/25 Transmitted Standard(2gna,3gk,Lopho) Breakfast Hydrocodone-Acet PHA 02/17/25 Logged 5/325mg Tab (Petty 08:00 Ondansetron Hcl PHA 02/17/25 Logged (Zofran) 08:00 Docusate Sodium PHA 02/17/25 Logged Capsule (Colace 08:00 Complete Blood Count LAB 02/18/25 Verified 04:00 Comprehensive LAB 02/18/25 Verified Metabolic Panel 04:00 Condition: Serious YASHIRA 02/17/25 In Process 07:53 Acetaminophen Tablet PHA 02/17/25 Logged (Tylenol Tablet) 08:00 Nitroglycerin PHA 02/17/25 Logged Sublingual (Ntrostat 08:00 Morphine Sulfate PHA 02/17/25 Logged Injection 08:00 Stat Ekg For Chest [facility] 02/17/25 In Process Pain 07:53 Notify Of Changes [facility] 02/17/25 In Process From Base 07:53 Fuel Storage Technician For [facility] 02/17/25 In Process 24 Hours 07:53 Emergency Dysrhythmia [facility] 02/17/25 In Process Protocol 07:53 Rhythm Strips Once [facility] 02/17/25 In Process Every Shift 07:53 Oxygen By Nasal RT 02/17/25 Transmitted Cannula 07:53 Aspirin Enteric PHA 02/17/25 Transmitted Coated Tablet 10:00 Clonidine Hcl Tablet PHA 02/17/25 Transmitted (Catapres Tablet) 10:00 Furosemide Tablet PHA 02/17/25 Transmitted (Lasix Tablet) 10:00 Hydroxychloroquine PHA 02/17/25 Transmitted Tablet (Plaquenil Tab 10:00 Mycophenolate Mofetil PHA 02/17/25 Transmitted (Cellcept) 10:00 Pantoprazole Tablet PHA 02/17/25 Transmitted (Protonix Tablet) 10:00 (Nf) Carvedilol PHA 02/17/25 Transmitted 10:00 (Nf) Cholecalciferol PHA 02/17/25 Transmitted (Vitamin D3) 10:00 Chlorthalidone PHA 02/17/25 Transmitted (Chlorthalidone) 10:00 Warm Compresses ORDERS 02/17/25 Transmitted 08:01 Date of Service: Feb 17, 2025 Billing Provider: YVETTE SCHNEIDER Common Visit Codes: [id number] INP/OBS CARE (MOD) YVETTE SCHNEIDER Feb 17, 2025 08:05
[2025-02-17] MEDS ORDERED: PATIENTS OWN MEDICATION (Cholecalciferol (Vitamin D3) 1 CAP) PO SCH (10:00)
[2025-02-17] MEDS: FUROSEMIDE 40 MG TAB PO SCH (10:00)
[2025-02-17] MEDS: ASPirin-EC 81 mg tab PO SCH (10:00)
[2025-02-17] MEDS: CHOLECALCIFEROL (VITD3) 1,000UNIT=25mCg TAB PO SCH (10:00)
[2025-02-17] MEDS: CHLORTHALIDONE 25 MG TAB PO SCH (10:00)
[2025-02-17] MEDS ORDERED: PATIENTS OWN MEDICATION (Carvedilol 25 MG) PO SCH (10:00)
[2025-02-17] MEDS: MYCOPHENOLATE 500 MG TAB PO SCH (10:00)
[2025-02-17] MEDS: PANTOPRAZOLE 40 MG TAB PO SCH (10:00)
[2025-02-17] MEDS: CARVEDILOL 12.5 MG TAB PO SCH (10:00)
[2025-02-17] MEDS: HYDROcodone-ACET 5/325MG TAB PO PRN (12:16)
--- NOTE | 2025-02-17 13:04 | DVHPN2 ---
Reviewed: Care Plan, H&P, Labs, Medications, Previous Orders, Radiology Changes from previous H/P or p: No Changes Eyes: No Pain, No Vision change, No Conjunctivae inflammation, No Eyelid inflammation, No Other, No Redness ENT: No Ear pain, No Ear discharge, No Nose pain, No Nose discharge, No Nose congestion, No Mouth pain, No Mouth swelling, No Throat pain, No Throat swelling; Other (right side of face swollen, difficulty hearing out of right ear ) Cardiovascular: No Chest Pain, No Palpitations, No Orthopnea, No Paroxysmal Noc. Dyspnea, No Edema, No Lt Headedness, No Other Respiratory: No Cough, No Dry, No Shortness of breath, No SOB with excertion, No Wheezing, No Hemoptysis, No Pleuritic Pain, No Sputum, No Other Gastrointestinal: No Nausea, No Vomiting, No Abdominal Pain, No Diarrhea, No Constipation, No Melena, No Hematochezia, No Other Genitourinary: No Dysuria, No Frequency, No Incontinence, No Hematuria, No Retention, No Other Musculoskeletal: No other, No neck pain, No shoulder pain, No arm pain, No back pain, No hand pain, No leg pain, No foot pain Skin: No Rash, No Lesions, No Jaundice, No Bruising, No Other Objective Vitals Vital Signs Date Time Temp Pulse Resp B/P (MAP) Pulse Ox O2 Delivery O2 Flow Rate FiO2 02/17/25 12:11 99 173/115 02/17/25 06:20 18 02/17/25 01:56 98.5 94 98.5 Medications Current Medications Medications Dose Ordered Sig/Yvan Route Start Time Stop Time Status Last Admin Dose Admin Acetaminophen/ Hydrocodone Bitart 1 tab Q4HP PRN PO 02/17/25 08:00 02/17/25 12:16 1 TAB Ondansetron HCl 4 mg Q4HP PRN IV 02/17/25 08:00 Docusate Sodium 100 mg BIDPRN PRN PO 02/17/25 08:00 Acetaminophen 650 mg Q6HP PRN PO 02/17/25 08:00 Nitroglycerin 0.4 mg Q5MINP PRN SL 02/17/25 08:00 Morphine Sulfate 2 mg Q30M PRN IV 02/17/25 08:00 Aspirin 81 mg DAILY PO 02/17/25 10:00 02/17/25 10:00 81 MG Chlorthalidone 25 mg DAILY PO 02/17/25 10:00 02/17/25 10:00 25 MG Clonidine HCl 0.1 mg BID PO 02/17/25 10:00 02/17/25 10:00 0.1 MG Furosemide 80 mg DAILY PO 02/17/25 10:00 02/17/25 10:00 80 MG Hydroxychloroquine Sulfate 200 mg BID PO 02/17/25 10:00 02/17/25 10:00 200 MG Mycophenolate Mofetil 500 mg BID PO 02/17/25 10:00 Pantoprazole Sodium 40 mg DAILY PO 02/17/25 10:00 02/17/25 10:00 40 MG Patient Own Medication 25 mg Q12HR PO 02/17/25 10:00 UNV Patient Own Medication 1 cap DAILY PO 02/17/25 10:00 UNV Ceftriaxone Sodium 50 ml @ 100 mls/hr DAILY@09 IV 02/17/25 09:00 02/17/25 09:00 100 MLS/HR Carvedilol 25 mg BID PO 02/17/25 10:00 02/17/25 10:00 25 MG Cholecalciferol 5,000 unit DAILY PO 02/17/25 10:00 02/17/25 10:00 5,000 UNIT Gabapentin 100 mg BID PO 02/17/25 22:00 Hydralazine HCl 10 mg Q6HP PRN IV 02/17/25 11:00 Laboratory Results Laboratory Tests 02/16/25 20:23 Chemistry Test 02/16/25 20:23 Calcium Level 8.7 mg/dL (8.7-10.4) Labs and/or images reviewed: Labs reviewed by me, Image(s) reviewed by me Assessment/Plan Assessment/Plan Sepsis secondary to acute right parotitis Rocephin Acute kidney injury: BUN creatinine 50 and 6.7: Nephrology consult Uncontrolled hypertension Lupus Time spent 55 minutes Advanced care planning time 20 minutes Patient is full code Plan discussed with: Patient Date of Service: Feb 17, 2025 Billing Provider: SAMSON DELACRUZ MD Common Visit Codes: [id number] INP/OBS CARE(HIGH) Secondary Visit Codes: [id number] CARE PLAN 30 MINUTES SAMSON DELACRUZ MD Feb 17, 2025 13:04
[2025-02-17 18:18] VITALS: BP 165/117; PULSE 100; RESP 18; TEMP 100.2; O2SAT 94
--- NOTE | 2025-02-17 18:39 | DVHINCON2 ---
Date of service: Feb 17, 2025 Reason for Consultation BERNICE History of Present Illness [age] years old male with past medical history of hypertension, Chronic kidney disease four, lupus nephritis in 2023 kidney biopsy, hypertension, gout, obesity morbid chief complaints of right cheek swelling found to have parotid gland swelling, patient was recently admitted to this hospital at that time he had pulse dose IV steroids and was sent on p.o. prednisone Past Medical History per hpi Past Surgical History kidney biopsy Allergies: Coded Allergies: NO KNOWN ALLERGIES (Unverified , 01/02/23) Home Meds Active Scripts Allopurinol (Allopurinol) 300 Mg Tab, 300 MG PO DAILY, #30 TAB Prov:GAURAV HUNTLEY MD 01/12/25 Prednisone (Prednisone) 20 Mg Tab, 20 MG PO DAILY, #25 MG Take two tablets daily for 14 days and then Take one tablet daily for seven days and then Take half tab daily for seven days. Prov:GAURAV HUNTLEY MD 01/12/25 Pantoprazole Sodium Sesquihydr (Protonix) 40 Mg Tab, 40 MG PO DAILY for 30 Days, #30 TAB Prov:GAURAV HUNTLEY MD 01/12/25 Hydrocodone-Acetaminophen (Hydrocodone Bitartrate/AC 5-325 mg) 1 Tab Tab, 1 TAB PO Q4HP PRN, #20 TAB Prov:BYRON JEAN MD 04/23/24 Reported Medications Gabapentin (Gabapentin) 100 Mg Cap, 100 MG PO BID 02/17/25 Hydroxychloroquine Sulfate (Hydroxychloroquine Sulfat) 200 Mg Tab, 1 TAB PO BID 04/21/24 Cholecalciferol (VITAMIN D3) 5,000 Unit Cap, 1 CAP PO DAILY 04/21/24 Mycophenolate Mofetil (Mycophenolate Mofetil) 500 Mg Tab, 1 TAB PO BID 04/21/24 Chlorthalidone (Chlorthalidone) 25 Mg Tab, 1 TAB PO DAILY 02/01/24 Furosemide (Furosemide) 40 Mg Tab, 2 TAB PO DAILY 02/01/24 Aspirin (Aspirin Adult Low Dose) 81 Mg Tab, 1 TAB PO DAILY 02/01/24 Clonidine Hydrochloride (Clonidine Hcl) 0.1 Mg Tab, 1 TAB PO BID 02/01/24 Carvedilol (Carvedilol) 25 Mg Tab, 25 MG PO Q12HR for 30 Days, MG 02/01/24 Current Medications Current Medications Medications (Trade) Dose Ordered Sig/Yvan Route PRN Reason Start Time Stop Time Status Last Admin Ampicillin Sodium/ Sulbactam Sodium 3 gm/Sodium Chloride 100 ml @ 100 mls/hr ONCE STAT IV 02/17/25 01:12 02/17/25 02:11 DC Acetaminophen/ Hydrocodone Bitart ([place] 5/325MG Tab) 1 tab Q4HP PRN PO MODERATE PAIN (4-6 PAIN SCALE) 02/17/25 08:00 02/17/25 12:16 Ondansetron HCl (Zofran) 4 mg Q4HP PRN IV NAUSEA / VOMITING 02/17/25 08:00 Docusate Sodium (Colace Capsule) 100 mg BIDPRN PRN PO FOR CONSTIPATION 02/17/25 08:00 Acetaminophen (Tylenol Tablet) 650 mg Q6HP PRN PO PAIN SCALE 1-3 OR TEMP>100.4 02/17/25 08:00 Nitroglycerin (Ntrostat Sublingual) 0.4 mg Q5MINP PRN SL FOR CHEST PAIN 02/17/25 08:00 Morphine Sulfate 2 mg Q30M PRN IV FOR CHEST PAIN 02/17/25 08:00 Aspirin (Ecotrin Enteric Coated Tablet) 81 mg DAILY PO 02/17/25 10:00 02/17/25 10:00 Chlorthalidone (Chlorthalidone) 25 mg DAILY PO 02/17/25 10:00 02/17/25 18:34 DC 02/17/25 10:00 Clonidine HCl (Catapres Tablet) 0.1 mg BID PO 02/17/25 10:00 02/17/25 18:34 DC 02/17/25 10:00 Furosemide (Lasix Tablet) 80 mg DAILY PO 02/17/25 10:00 02/17/25 18:36 DC 02/17/25 10:00 Hydroxychloroquine Sulfate (Plaquenil Tablet) 200 mg BID PO 02/17/25 10:00 02/17/25 10:00 Mycophenolate Mofetil (Cellcept) 500 mg BID PO 02/17/25 10:00 Pantoprazole Sodium (Protonix Tablet) 40 mg DAILY PO 02/17/25 10:00 02/17/25 10:00 Patient Own Medication 25 mg Q12HR PO 02/17/25 10:00 UNV Patient Own Medication 1 cap DAILY PO 02/17/25 10:00 UNV Ceftriaxone Sodium 50 ml @ 100 mls/hr DAILY@09 IV 02/17/25 09:00 02/17/25 09:00 Carvedilol (Coreg Tablet) 25 mg BID PO 02/17/25 10:00 02/17/25 10:00 Cholecalciferol (Vitamin D3 Tablet) 5,000 unit DAILY PO 02/17/25 10:00 02/17/25 10:00 Gabapentin (Neurontin Capsule) 100 mg BID PO 02/17/25 22:00 Hydralazine HCl (Apresoline Injection) 10 mg Q6HP PRN IV SBP>150 02/17/25 11:00 Clonidine HCl (Catapres Tablet) 0.2 mg TID PO 02/17/25 18:45 UNV Social History Denies any Review of Systems As per HPI H&P Exam Vital Signs/I&O Vital Sign Date Time Temp Pulse Resp B/P (MAP) Pulse Ox O2 Delivery O2 Flow Rate FiO2 02/17/25 17:52 99.3 96 18 149/99 (116) 93 99.3 Physical Exam General-not in any distress HEENT-normocephalic, rt cheek swollen mass uptil ear and back of ear Respiratory-fair air entry bilateral, no rhonchi, no wheeze [id number]-O1-L2 heard, no murmurs appreciated Abdominal-soft, nontender, nondistended Musculoskeletal-no pedal edema, no calf tenderness Genitourinary-deferred Neuro-awake alert oriented x3, Psychiatric-not agitated, cooperative, Labs/Diagnostic Data Labs/Diagnostic Data Laboratory Tests Test 02/16/25 20:33 02/16/25 20:23 Range/Units Lactic Acid Level 0.7 0.4-2.0 mmol/L White Blood Count 14.9 H 4.4-10.8 10^3/uL Red Blood Count 3.77 L 4.5-5.90 10^6/uL Hemoglobin 10.5 L 13.5-17.5 g/dL Hematocrit 32.4 L 41.0-53.0 % Mean Corpuscular Volume 85.9 80.0-100.0 fL Mean Corpuscular Hemoglobin 27.8 L 28.0-32.0 pg Mean Corpuscular Hemoglobin Concent 32.3 32.0-36.0 g/dL Red Cell Distribution Width 20.0 H 11.8-14.3 % Platelet Count 297 140-450 10^3/uL Mean Platelet Volume 8.0 6.9-10.8 fL Neutrophils (%) (Auto) 37.0-80.0 % Lymphocytes (%) (Auto) 10.0-50.0 % Monocytes (%) (Auto) 0.0-12.0 % Basophils (%) (Auto) 0.0-2.0 % Neutrophils # (Auto) 1.6-8.6 10 ^3/uL Lymphocytes # (Auto) 0.4-5.4 10 ^3/uL Monocytes # (Auto) 0-1.3 10 ^3/uL Differential Total Cells Counted 100.0 100 Neutrophils % (Manual) 68 37.0-80.0 Band Neutrophils % (Manual) 5 Lymphocytes % (Manual) 7 L 10.0-50.0 Monocytes % (Manual) 8 0-12 Eosinophils % (Manual) 10 H 0-7 Basophils % (Manual) 0 0.0-2.0 Metamyelocytes % (manual) 1 Myelocytes % (Manual) 1 Promyelocytes % (Manual) 0 Blast Cells % (Manual) 0 Nucleated Red Blood Cells 2.0 % Reactive Lymphocytes 0 Platelet Estimate Adequate Anisocytosis (manual) Moderate Sodium Level 140 136-145 mmol/L Potassium Level 4.7 3.5-5.1 mmol/L Chloride Level 103 98-107 mmol/L Carbon Dioxide Level 24 20-31 mmol/L Anion Gap 13 5-15 Blood Urea Nitrogen 50 H 9-23 mg/dL Creatinine 6.26 H 0.700-1.30 mg/dL Glomerular Filtration Rate Calc 11 >90 mL/min BUN/Creatinine Ratio 8.0 L 10.0-20.0 Serum Glucose 95 74-106 mg/dL Calcium Level 8.7 8.7-10.4 mg/dL Assessment BERNICE on ckd4--likely secondary to lupus nephritis Hypertension Parotitis SLE Obesity Recommendations DC chlorthalidone and furosemide Normal saline IV as ordered for one liter Kidney ultrasound Urine workup as ordered Continue mycophenolate and Plaquenil 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
[2025-02-17] MEDS: hydrALAZINE HCL 20 MG/ML VL IV PRN (18:47)
--- NOTE | 2025-02-17 20:28 | DVH ---
CLINICAL HISTORY: caiite TECHNIQUE: Complete ultrasound exam of the kidneys and bladder was performed. COMPARISON: US KIDNEY on DOS: 02/05/24, US ABDOMEN COMPLETE SONOGRAM on DOS: 01/31/24, US TESTICULAR ULT RASOUND on DOS: 01/02/23 FINDINGS: The right kidney has increased echogenicity and measures 11.1 cm. There is no focal parenchymal abnor mality or evidence for stone. There is no hydronephrosis. The left kidney has increased echogenicity and measures 10.9 cm. There is no focal parenchymal abnor mality or evidence for stone. There is no hydronephrosis. The bladder is contracted. IMPRESSION: Echogenic kidneys, compatible with medical renal disease. No hydronephrosis.
--- NOTE | 2025-02-17 20:43 | DVH ---
CLINICAL HISTORY: r/o edema TECHNIQUE: Single view of the chest was obtained. COMPARISON: XY CHEST PORTABLE on DOS: 01/10/25, XY CHEST PORTABLE on DOS: 02/02/24, XY CHEST TWO VIEWS R OUTINE on DOS: 01/02/23 FINDINGS: The heart size is mildly enlarged with slightly increased pulmonary vascular congestion. No dense con solidation is seen. IMPRESSION: Slightly worsening pulmonary vascular congestion.
[2025-02-17 21:00] VITALS: BP 157/103; PULSE 106; RESP 18; TEMP 99.1; O2SAT 93
[2025-02-17] MEDS: GABAPENTIN 100 MG CAP PO SCH (21:27)
[2025-02-17 23:00] VITALS: PULSE 102; RESP 20; O2SAT 94
[2025-02-18] VITALS (10 sets, daily range): BP systolic 125–164; BP diastolic 79–104; PULSE 84–107; RESP 16–19; TEMP 96.8–98.4; O2SAT 90–97
[2025-02-18 06:36] LABS: Hematocrit 30.7 % (41.0-53.0); Hemoglobin 9.9 g/dL (13.5-17.5); Mean Corpuscular Hemoglobin 27.4 pg (28.0-32.0); Mean Corpuscular Volume 85.1 fL (80.0-100.0); Nucleated Red Blood Cells % 0.4 %
[2025-02-18 06:49] LABS: Alanine Aminotransferase 18 U/L (7-40); Alkaline Phosphatase 97 U/L (46-116); Anion Gap 13 (5-15); BUN/Creatinine Ratio 8.9 (10.0-20.0); Calcium 9.1 mg/dL (8.7-10.4); Carbon Dioxide 23 mmol/L (20-31); Chloride 100 mmol/L (98-107); Glucose 96 mg/dL (74-106); Magnesium 1.9 mg/dL (1.6-2.6); Potassium 4.1 mmol/L (3.5-5.1); Sodium 136 mmol/L (136-145); Total Protein 6.8 g/dL (5.7-8.2)
[2025-02-18 06:50] LABS: Albumin 3.7 g/dL (3.2-4.8); Bilirubin, Total 0.7 mg/dL (0.2-1.0)
[2025-02-18 06:52] LABS: Blood Urea Nitrogen 55 mg/dL (9-23)
--- NOTE | 2025-02-18 08:42 | DVHPN2 ---
Reviewed: Care Plan, H&P, Labs, Medications, Previous Orders, Radiology Changes from previous H/P or p: No Changes Eyes: No Pain, No Vision change, No Conjunctivae inflammation, No Eyelid inflammation, No Other, No Redness ENT: Other Cardiovascular: No Chest Pain, No Palpitations, No Orthopnea, No Paroxysmal Noc. Dyspnea, No Edema, No Lt Headedness, No Other Respiratory: No Cough, No Dry, No Shortness of breath, No SOB with excertion, No Wheezing, No Hemoptysis, No Pleuritic Pain, No Sputum, No Other Gastrointestinal: No Nausea, No Vomiting, No Abdominal Pain, No Diarrhea, No Constipation, No Melena, No Hematochezia, No Other Genitourinary: No Dysuria, No Frequency, No Incontinence, No Hematuria, No Retention, No Other Musculoskeletal: No other, No neck pain, No shoulder pain, No arm pain, No back pain, No hand pain, No leg pain, No foot pain Skin: No Rash, No Lesions, No Jaundice, No Bruising, No Other Objective Vitals Vital Signs Date Time Temp Pulse Resp B/P (MAP) Pulse Ox O2 Delivery O2 Flow Rate FiO2 02/18/25 05:26 134/76 02/18/25 05:00 96.8 107 17 90 96.8 02/17/25 23:00 Room Air* 0 21 Intake/Output Intake and Output 02/18/25 07:00 Intake Total 100 ml Balance 100 ml Intake Oral 100 ml # Voids 2 Medications Current Medications Medications Dose Ordered Sig/Yvan Route Start Time Stop Time Status Last Admin Dose Admin Acetaminophen/ Hydrocodone Bitart 1 tab Q4HP PRN PO 02/17/25 08:00 02/17/25 12:16 1 TAB Ondansetron HCl 4 mg Q4HP PRN IV 02/17/25 08:00 Docusate Sodium 100 mg BIDPRN PRN PO 02/17/25 08:00 Acetaminophen 650 mg Q6HP PRN PO 02/17/25 08:00 Nitroglycerin 0.4 mg Q5MINP PRN SL 02/17/25 08:00 Morphine Sulfate 2 mg Q30M PRN IV 02/17/25 08:00 Aspirin 81 mg DAILY PO 02/17/25 10:00 02/17/25 10:00 81 MG Hydroxychloroquine Sulfate 200 mg BID PO 02/17/25 10:00 02/17/25 21:27 200 MG Mycophenolate Mofetil 500 mg BID PO 02/17/25 10:00 02/17/25 21:28 500 MG Pantoprazole Sodium 40 mg DAILY PO 02/17/25 10:00 02/17/25 10:00 40 MG Patient Own Medication 25 mg Q12HR PO 02/17/25 10:00 UNV Patient Own Medication 1 cap DAILY PO 02/17/25 10:00 UNV Ceftriaxone Sodium 50 ml @ 100 mls/hr DAILY@09 IV 02/17/25 09:00 02/17/25 09:00 100 MLS/HR Carvedilol 25 mg BID PO 02/17/25 10:00 02/17/25 21:36 25 MG Cholecalciferol 5,000 unit DAILY PO 02/17/25 10:00 02/17/25 10:00 5,000 UNIT Gabapentin 100 mg BID PO 02/17/25 22:00 02/17/25 21:27 100 MG Hydralazine HCl 10 mg Q6HP PRN IV 02/17/25 11:00 02/17/25 18:47 10 MG Clonidine HCl 0.2 mg Q8H PO 02/17/25 19:15 02/18/25 04:26 0.2 MG Laboratory Results Laboratory Tests 02/18/25 06:00 Chemistry Test 02/18/25 06:00 Albumin 3.7 g/dL (3.2-4.8) Calcium Level 9.1 mg/dL (8.7-10.4) Magnesium Level 1.9 mg/dL (1.6-2.6) Phosphorus Level 4.8 mg/dL (2.4-5.1) Total Protein 6.8 g/dL (5.7-8.2) LFT Test 02/18/25 06:00 Alanine Aminotransferase (ALT) 18 U/L (7-40) Alkaline Phosphatase 97 U/L (46-116) Aspartate Amino Transferase (AST) 11 U/L (13-40) L Total Bilirubin 0.7 mg/dL (0.2-1.0) Labs and/or images reviewed: Labs reviewed by me, Image(s) reviewed by me Assessment/Plan Assessment/Plan Sepsis secondary to acute right parotitis Rocephin BERNICE on CKD 4 secondary to grade 4 lupus nephritis: BUN creatinine 50 and 6.7: Nephrology consult by Dr. 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
[2025-02-18] MEDS: SODIUM CHLORIDE 0.9% 1,000 ML IV ONE (12:18)
[2025-02-18 12:36] LABS: Urine Protein, UAD 1+ (Negative)
[2025-02-18 12:45] LABS: Protein, Urine 107.3 mg/dL (1-14)
--- NOTE | 2025-02-18 17:28 | DVHPN2 ---
Progress Note Date Seen: Feb 18, 2025 Medical Necessity Reason Pt with a Central, PICC or Fol: No Subjective Patient reports: No new complaints, Feels better Review of Systems: HEENT:Abnormal, CVS:Normal, RESPIRATORY:Normal, GI:Normal, :Normal, MSK:Normal, NEURO:Normal Objective vital signs Vital Sign Date Time Temp Pulse Resp B/P (MAP) Pulse Ox O2 Delivery O2 Flow Rate FiO2 02/18/25 17:00 98.4 84 18 125/79 (94) 92 98.4 02/18/25 08:30 Room Air* 0 21 Total Intake and Output 02/17/25 02/17/25 02/18/25 15:00 23:00 07:00 Intake Total 100 ml Balance 100 ml medications Current Medications Medications Dose Ordered Sig/Yvan Route Start Time Stop Time Status Last Admin Dose Admin Acetaminophen/ Hydrocodone Bitart 1 tab Q4HP PRN PO 02/17/25 08:00 02/18/25 10:00 1 TAB Ondansetron HCl 4 mg Q4HP PRN IV 02/17/25 08:00 Docusate Sodium 100 mg BIDPRN PRN PO 02/17/25 08:00 Acetaminophen 650 mg Q6HP PRN PO 02/17/25 08:00 Nitroglycerin 0.4 mg Q5MINP PRN SL 02/17/25 08:00 Morphine Sulfate 2 mg Q30M PRN IV 02/17/25 08:00 Aspirin 81 mg DAILY PO 02/17/25 10:00 02/18/25 09:48 81 MG Hydroxychloroquine Sulfate 200 mg BID PO 02/17/25 10:00 02/18/25 09:49 200 MG Pantoprazole Sodium 40 mg DAILY PO 02/17/25 10:00 02/18/25 09:50 40 MG Patient Own Medication 25 mg Q12HR PO 02/17/25 10:00 UNV Patient Own Medication 1 cap DAILY PO 02/17/25 10:00 UNV Ceftriaxone Sodium 50 ml @ 100 mls/hr DAILY@09 IV 02/17/25 09:00 02/18/25 09:50 100 MLS/HR Carvedilol 25 mg BID PO 02/17/25 10:00 02/18/25 09:49 25 MG Cholecalciferol 5,000 unit DAILY PO 02/17/25 10:00 02/18/25 09:50 5,000 UNIT Gabapentin 100 mg BID PO 02/17/25 22:00 02/18/25 09:49 100 MG Hydralazine HCl 10 mg Q6HP PRN IV 02/17/25 11:00 02/17/25 18:47 10 MG Clonidine HCl 0.2 mg Q8H PO 02/17/25 19:15 02/18/25 12:16 0.2 MG Examination: GENERAL:Normal, HEENT:Abnormal, NECK:Normal, LUNGS:Normal, CVS:Normal, ABDOMEN:Normal, MSK:Normal, SKIN:Normal, NEURO:Normal, :Normal laboratory and microbiology Laboratory Tests 02/18/25 06:00 Test 02/18/25 06:00 Range/Units Serum Glucose 96 74-106 mg/dL Problem List/Assessment/Plan Problem List/Assessment/Plan BENRICE on ckd4--likely secondary to lupus nephritis Hypertension Acute Parotitis SLE class 5 in 2023 has 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 After completing this bag stop IV fluids Plan discussed with: Patient My Orders My Orders Orders - KRUPA MC MD Procedure Category Date Status Time Kidney US 02/17/25 Resulted 18:32 Chest Xray 1 View XY 02/17/25 Resulted 18:34 Basic Metabolic Panel LAB 02/19/25 Verified 05:00 Basic Metabolic Panel LAB 02/20/25 Verified 05:00 Basic Metabolic Panel LAB 02/21/25 Verified 05:00 Basic Metabolic Panel LAB 02/22/25 Verified 05:00 Basic Metabolic Panel LAB 02/23/25 Verified 05:00 Basic Metabolic Panel LAB 02/24/25 Verified 05:00 Clonidine Hcl Tablet PHA 02/17/25 In Process (Catapres Tablet) 19:15 Strict I & O YASHIRA 02/18/25 In Process 09:26 Sodium Chloride 0.9% PHA 02/18/25 In Process 09:30 * Radiologist Consult CONS 02/18/25 Transmitted 17:23 KRUPA MC MD Feb 18, 2025 17:28
[2025-02-19] VITALS (9 sets, daily range): BP systolic 127–179; BP diastolic 75–125; PULSE 86–94; RESP 16–19; TEMP 97.5–99.5; O2SAT 94–97
[2025-02-19 06:28] LABS: Calcium 9.1 mg/dL (8.7-10.4); Chloride 103 mmol/L (98-107); Potassium 4.0 mmol/L (3.5-5.1); Sodium 138 mmol/L (136-145)
[2025-02-19 06:29] LABS: Anion Gap 12 (5-15); Carbon Dioxide 23 mmol/L (20-31)
[2025-02-19 06:34] LABS: BUN/Creatinine Ratio 8.7 (10.0-20.0); Glucose 97 mg/dL (74-106)
[2025-02-19 06:37] LABS: Blood Urea Nitrogen 50 mg/dL (9-23)
[2025-02-19] MEDS: SODIUM CHL 0.9% 1000 ML BAG XX ONE (07:00)
[2025-02-19 09:45] LABS: INR 1.08 (0.9-1.15); Partial Thromboplastin Time 33.7 SEC (24.5-34.5); Prothrombin Time 11.4 sec (9.3-11.8)
--- NOTE | 2025-02-19 09:46 | DVHPN2 ---
Reviewed: Care Plan, H&P, Labs, Medications, Previous Orders, Radiology Changes from previous H/P or p: No Changes Eyes: No Pain, No Vision change, No Conjunctivae inflammation, No Eyelid inflammation, No Other, No Redness ENT: Other Cardiovascular: No Chest Pain, No Palpitations, No Orthopnea, No Paroxysmal Noc. Dyspnea, No Edema, No Lt Headedness, No Other Respiratory: No Cough, No Dry, No Shortness of breath, No SOB with excertion, No Wheezing, No Hemoptysis, No Pleuritic Pain, No Sputum, No Other Gastrointestinal: No Nausea, No Vomiting, No Abdominal Pain, No Diarrhea, No Constipation, No Melena, No Hematochezia, No Other Genitourinary: No Dysuria, No Frequency, No Incontinence, No Hematuria, No Retention, No Other Musculoskeletal: No other, No neck pain, No shoulder pain, No arm pain, No back pain, No hand pain, No leg pain, No foot pain Skin: No Rash, No Lesions, No Jaundice, No Bruising, No Other Objective Vitals Vital Signs Date Time Temp Pulse Resp B/P (MAP) Pulse Ox O2 Delivery O2 Flow Rate FiO2 02/19/25 05:54 159/111 02/19/25 05:00 98.0 94 18 95 98.0 02/18/25 22:00 Facial BiPAP Mask 30 02/18/25 20:00 0 Intake/Output Intake and Output 02/19/25 07:00 Intake Total 2030 ml Output Total 2300 ml Balance -270 ml Intake Oral 1480 ml IV Total 550 ml Output Urine Total 2300 ml Medications Current Medications Medications Dose Ordered Sig/Yvan Route Start Time Stop Time Status Last Admin Dose Admin Acetaminophen/ Hydrocodone Bitart 1 tab Q4HP PRN PO 02/17/25 08:00 02/18/25 10:00 1 TAB Ondansetron HCl 4 mg Q4HP PRN IV 02/17/25 08:00 Docusate Sodium 100 mg BIDPRN PRN PO 02/17/25 08:00 Acetaminophen 650 mg Q6HP PRN PO 02/17/25 08:00 Nitroglycerin 0.4 mg Q5MINP PRN SL 02/17/25 08:00 Morphine Sulfate 2 mg Q30M PRN IV 02/17/25 08:00 Aspirin 81 mg DAILY PO 02/17/25 10:00 02/18/25 09:48 81 MG Hydroxychloroquine Sulfate 200 mg BID PO 02/17/25 10:00 02/18/25 21:48 200 MG Pantoprazole Sodium 40 mg DAILY PO 02/17/25 10:00 02/18/25 09:50 40 MG Patient Own Medication 25 mg Q12HR PO 02/17/25 10:00 UNV Patient Own Medication 1 cap DAILY PO 02/17/25 10:00 UNV Ceftriaxone Sodium 50 ml @ 100 mls/hr DAILY@09 IV 02/17/25 09:00 02/18/25 09:50 100 MLS/HR Carvedilol 25 mg BID PO 02/17/25 10:00 02/18/25 21:48 25 MG Cholecalciferol 5,000 unit DAILY PO 02/17/25 10:00 02/18/25 09:50 5,000 UNIT Gabapentin 100 mg BID PO 02/17/25 22:00 02/18/25 21:48 100 MG Hydralazine HCl 10 mg Q6HP PRN IV 02/17/25 11:00 02/19/25 05:54 10 MG Clonidine HCl 0.2 mg Q8H PO 02/17/25 19:15 02/19/25 03:09 0.2 MG Laboratory Results Laboratory Tests 02/18/25 06:00 02/19/25 05:48 Chemistry Test 02/19/25 05:48 Calcium Level 9.1 mg/dL (8.7-10.4) Coagulation Test 02/19/25 09:12 Prothrombin Time Pending Prothrombin Time INR Pending Activated Partial Thromboplast Time Pending Urinalysis Test 02/18/25 12:00 Urine Color Light-yellow (Yellow) Urine Clarity Clear (Clear) Urine pH 5.5 (5.0-9.0) Urine Specific [place] 1.010 (1.001-1.035) Urine Protein 1+ (Negative) H Urine Ketones Negative (Negative) Urine Blood Trace /uL (Negative) H Urine Nitrite Negative (Negative) Urine Bilirubin Negative (Negative) Urine Urobilinogen Normal mg/dL (Negative) Urine Leukocyte Esterase 3+ /uL (Negative) Urine RBC 7 /hpf (0 - 3) Urine Microscopic WBC 85 /HPF (0-3) H Urine Squamous Epithelial Cells None seen /hpf (<5) Urine Bacteria None seen /hpf (None Seen) Urine Creatinine 75.76 mg/dL (30.0-125.0) Urine Sodium 82 mmol/L (40-220) Urine Glucose Normal mg/dL (Normal) Urine Total Protein 107.3 mg/dL (1-14) H Labs and/or images reviewed: Labs reviewed by me, Image(s) reviewed by me Assessment/Plan Assessment/Plan Sepsis secondary to acute right parotitis Rocephin BERNICE on CKD 4 secondary to grade 4 lupus nephritis: BUN creatinine 50 and 6.7: Nephrology consult by Dr. 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
--- NOTE | 2025-02-19 10:06 | ECG ---
[facility] Test Date: 2025-02-16 Test Time: 19:14:51 Pat Name: SVEN MCKINLEY Department: [facility] ED Patient ID: [id number] Room: 0217T B Gender: M Development Rep: cordelia : 1980 Requested By: VIKI CASTAÑEDA Order Number: [id number] Reading MD: Rafat Turner Measurements Intervals [place] Rate: 84 P: 55 OK: 159 QRS: 55 QRSD: 106 T: 31 QT: 392 QTc: 464 Interpretive Statements Sinus rhythm Probable left atrial enlargement Baseline wander in lead(s) V6 Electronically Signed On 02-19-2025 15:47:14 PDT by Rafat Turner Please click the below link to view image of tracing.
--- NOTE | 2025-02-19 14:03 | DVHPN2 ---
Progress Note Date Seen: Feb 19, 2025 Medical Necessity Reason Pt with a Central, PICC or Fol: No Subjective Patient reports: No new complaints Other Systems: Patient seen and examined by myself today in follow-up Objective vital signs Vital Sign Date Time Temp Pulse Resp B/P (MAP) Pulse Ox O2 Delivery O2 Flow Rate FiO2 02/19/25 11:22 163/105 02/19/25 11:22 87 02/19/25 09:00 99.5 18 95 99.5 02/18/25 22:00 Facial BiPAP Mask 30 02/18/25 20:00 0 Total Intake and Output 02/18/25 02/18/25 02/19/25 15:00 23:00 07:00 Intake Total 50 ml 1500 ml 480 ml Output Total 100 ml 600 ml 1600 ml Balance -50 ml 900 ml -1120 ml medications Current Medications Medications Dose Ordered Sig/Yvan Route Start Time Stop Time Status Last Admin Dose Admin Acetaminophen/ Hydrocodone Bitart 1 tab Q4HP PRN PO 02/17/25 08:00 02/18/25 10:00 1 TAB Ondansetron HCl 4 mg Q4HP PRN IV 02/17/25 08:00 Docusate Sodium 100 mg BIDPRN PRN PO 02/17/25 08:00 Acetaminophen 650 mg Q6HP PRN PO 02/17/25 08:00 Nitroglycerin 0.4 mg Q5MINP PRN SL 02/17/25 08:00 Morphine Sulfate 2 mg Q30M PRN IV 02/17/25 08:00 Aspirin 81 mg DAILY PO 02/17/25 10:00 02/18/25 09:48 81 MG Hydroxychloroquine Sulfate 200 mg BID PO 02/17/25 10:00 02/19/25 09:39 200 MG Pantoprazole Sodium 40 mg DAILY PO 02/17/25 10:00 02/19/25 09:39 40 MG Patient Own Medication 25 mg Q12HR PO 02/17/25 10:00 UNV Patient Own Medication 1 cap DAILY PO 02/17/25 10:00 UNV Ceftriaxone Sodium 50 ml @ 100 mls/hr DAILY@09 IV 02/17/25 09:00 02/19/25 09:38 100 MLS/HR Carvedilol 25 mg BID PO 02/17/25 10:00 02/19/25 09:55 25 MG Cholecalciferol 5,000 unit DAILY PO 02/17/25 10:00 02/19/25 09:39 5,000 UNIT Gabapentin 100 mg BID PO 02/17/25 22:00 02/19/25 09:39 100 MG Hydralazine HCl 10 mg Q6HP PRN IV 02/17/25 11:00 02/19/25 05:54 10 MG Clonidine HCl 0.2 mg Q8H PO 02/17/25 19:15 02/19/25 11:22 0.2 MG Examination: LUNGS:Normal, CVS:Normal, MSK:Abnormal laboratory and microbiology Laboratory Tests 02/19/25 05:48 02/18/25 06:00 Test 02/19/25 05:48 Range/Units Serum Glucose 97 74-106 mg/dL Problem List/Assessment/Plan Problem List/Assessment/Plan Acute kidney injury superimposed Chronic Kidney Disease stage IV, now requiring intermittent hemodialysis Hypertension Acute Parotitis 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
[2025-02-20] VITALS (14 sets, daily range): BP systolic 121–182; BP diastolic 76–117; PULSE 79–89; RESP 16–20; TEMP 97.6–98.1; O2SAT 92–99
[2025-02-20 06:30] LABS: Hematocrit 30.9 % (41.0-53.0); Hemoglobin 10.0 g/dL (13.5-17.5); Mean Corpuscular Hemoglobin 27.3 pg (28.0-32.0); Mean Corpuscular Volume 84.6 fL (80.0-100.0)
[2025-02-20 07:05] LABS: Alanine Aminotransferase 15 U/L (7-40); Albumin 3.6 g/dL (3.2-4.8); Alkaline Phosphatase 102 U/L (46-116); Anion Gap 13 (5-15); BUN/Creatinine Ratio 8.2 (10.0-20.0); Calcium 9.2 mg/dL (8.7-10.4); Carbon Dioxide 21 mmol/L (20-31); Chloride 104 mmol/L (98-107); Glucose 89 mg/dL (74-106); Potassium 4.1 mmol/L (3.5-5.1); Sodium 138 mmol/L (136-145); Total Protein 6.7 g/dL (5.7-8.2)
[2025-02-20 07:06] LABS: Bilirubin, Total 0.5 mg/dL (0.2-1.0)
[2025-02-20 07:08] LABS: Blood Urea Nitrogen 43 mg/dL (9-23)
[2025-02-20 07:47] LABS: Anisocytosis Slight; Total Cells Counted 100.0 (100)
[2025-02-20] MEDS: HEPARIN SODIUM (PORCINE) 5000 UNITS/ML 1ML VIAL ONE (09:56)
[2025-02-20] MEDS: LIDOCAINE 2%HCL (LOCAL ANESTH.) INJ 20ML MDV ONE (09:56)
[2025-02-20] MEDS: MIDAZOLAM HCL 2MG/2ML 2ml VIAL (1mg/ml) ONE (09:56)
[2025-02-20] MEDS: fentaNYL CITRATE 100 MCG/2 ML VL ONE (09:56)
[2025-02-20 10:11] LABS: Hepatitis B Surface Antigen Negative (Negative)
[2025-02-20 10:39] LABS: Hepatitis C Antibody Negative (Negative)
--- NOTE | 2025-02-20 11:00 | DVHPN2 ---
Reviewed: Care Plan, H&P, Labs, Medications, Previous Orders, Radiology Changes from previous H/P or p: No Changes Eyes: No Pain, No Vision change, No Conjunctivae inflammation, No Eyelid inflammation, No Other, No Redness ENT: Other Cardiovascular: No Chest Pain, No Palpitations, No Orthopnea, No Paroxysmal Noc. Dyspnea, No Edema, No Lt Headedness, No Other Respiratory: No Cough, No Dry, No Shortness of breath, No SOB with excertion, No Wheezing, No Hemoptysis, No Pleuritic Pain, No Sputum, No Other Gastrointestinal: No Nausea, No Vomiting, No Abdominal Pain, No Diarrhea, No Constipation, No Melena, No Hematochezia, No Other Genitourinary: No Dysuria, No Frequency, No Incontinence, No Hematuria, No Retention, No Other Musculoskeletal: No other, No neck pain, No shoulder pain, No arm pain, No back pain, No hand pain, No leg pain, No foot pain Skin: No Rash, No Lesions, No Jaundice, No Bruising, No Other Objective Vitals Vital Signs Date Time Temp Pulse Resp B/P (MAP) Pulse Ox O2 Delivery O2 Flow Rate FiO2 02/20/25 09:56 165/91 02/20/25 09:00 97.9 79 18 97 97.9 02/19/25 20:00 Room Air* 0 21 Intake/Output Intake and Output 02/20/25 07:00 Intake Total 1385 ml Output Total 2995 ml Balance -1610 ml Intake Oral 1335 ml IV Total 50 ml Output Urine Total 2995 ml # Bowel Movements 1 Medications Current Medications Medications Dose Ordered Sig/Yvan Route Start Time Stop Time Status Last Admin Dose Admin Acetaminophen/ Hydrocodone Bitart 1 tab Q4HP PRN PO 02/17/25 08:00 02/19/25 20:30 1 TAB Ondansetron HCl 4 mg Q4HP PRN IV 02/17/25 08:00 Docusate Sodium 100 mg BIDPRN PRN PO 02/17/25 08:00 Acetaminophen 650 mg Q6HP PRN PO 02/17/25 08:00 Nitroglycerin 0.4 mg Q5MINP PRN SL 02/17/25 08:00 Morphine Sulfate 2 mg Q30M PRN IV 02/17/25 08:00 Aspirin 81 mg DAILY PO 02/17/25 10:00 02/18/25 09:48 81 MG Hydroxychloroquine Sulfate 200 mg BID PO 02/17/25 10:00 02/19/25 21:24 200 MG Pantoprazole Sodium 40 mg DAILY PO 02/17/25 10:00 02/19/25 09:39 40 MG Patient Own Medication 25 mg Q12HR PO 02/17/25 10:00 UNV Patient Own Medication 1 cap DAILY PO 02/17/25 10:00 UNV Ceftriaxone Sodium 50 ml @ 100 mls/hr DAILY@09 IV 02/17/25 09:00 02/19/25 09:38 100 MLS/HR Carvedilol 25 mg BID PO 02/17/25 10:00 02/19/25 21:23 25 MG Cholecalciferol 5,000 unit DAILY PO 02/17/25 10:00 02/19/25 09:39 5,000 UNIT Gabapentin 100 mg BID PO 02/17/25 22:00 02/19/25 21:24 100 MG Hydralazine HCl 10 mg Q6HP PRN IV 02/17/25 11:00 02/19/25 16:16 10 MG Clonidine HCl 0.2 mg Q8H PO 02/17/25 19:15 02/20/25 03:18 0.2 MG Laboratory Results Laboratory Tests 02/20/25 05:05 Chemistry Test 02/20/25 05:05 Albumin 3.6 g/dL (3.2-4.8) Calcium Level 9.2 mg/dL (8.7-10.4) Total Protein 6.7 g/dL (5.7-8.2) LFT Test 02/20/25 05:05 Alanine Aminotransferase (ALT) 15 U/L (7-40) Alkaline Phosphatase 102 U/L (46-116) Aspartate Amino Transferase (AST) 19 U/L (13-40) Total Bilirubin 0.5 mg/dL (0.2-1.0) Urinalysis Test 02/18/25 12:00 Urine Color Light-yellow (Yellow) Urine Clarity Clear (Clear) Urine pH 5.5 (5.0-9.0) Urine Specific [place] 1.010 (1.001-1.035) Urine Protein 1+ (Negative) H Urine Ketones Negative (Negative) Urine Blood Trace /uL (Negative) H Urine Nitrite Negative (Negative) Urine Bilirubin Negative (Negative) Urine Urobilinogen Normal mg/dL (Negative) Urine Leukocyte Esterase 3+ /uL (Negative) Urine RBC 7 /hpf (0 - 3) Urine Microscopic WBC 85 /HPF (0-3) H Urine Squamous Epithelial Cells None seen /hpf (<5) Urine Bacteria None seen /hpf (None Seen) Urine Creatinine 75.76 mg/dL (30.0-125.0) Urine Sodium 82 mmol/L (40-220) Urine Glucose Normal mg/dL (Normal) Urine Total Protein 107.3 mg/dL (1-14) H Labs and/or images reviewed: Labs reviewed by me, Image(s) reviewed by me Assessment/Plan Assessment/Plan Sepsis secondary to acute right parotitis Rocephin BERNICE on CKD 4 secondary to grade 4 lupus nephritis: BUN creatinine 50 and 6.7: Nephrology consult by Dr. Mckeon appreciated; Radiologist Dr. 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
--- NOTE | 2025-02-20 12:08 | DVH ---
XY Insertion of Venous Cath, HISTORY: HD CATH PL PROCEDURE: Informed consent was obtained. The patient was placed supine on the interventional table. A limited localization ultrasound of the right neck base was obtained. 1 gram of Ancef was given IV. The right neck base and upper chest were prepped with chlorhexidine which was allowed to dry and drap ed in the usual sterile fashion. Time out was performed. IV sedation was administered. The skin and t he soft tissues were infiltrated with 1% Lidocaine. With real-time ultrasound guidance, the internal jugular vein was accessed with a micropuncture kit, and an image documenting patency was recorded to PACS. A subcutaneous tunneled tract was created from the right upper chest to the venotomy site. A 14 .5 [place] Alpine Path, 27 cm long hemodialysis catheter was advanced through the tunneled tract. Fluoroscopy was used to advance a guidewire through the internal jugular vein into the inferior vena cava. Following serial dilatation, a 15 [place] peel-away sheath was introduced, though which was adva nced the catheter into the right atrium. The catheter tip position was confirmed with fluoroscopy. Th ere was satisfactory flow in both lumens. The catheter lumens were flushed with saline and heparin wa s left indwelling in the catheter. A post-procedure image of the chest was obtained. The neck incisio n site was closed with a Dermabond and dressed sterilely. The catheter was sutured at the skin surfac e and exit site also dressed sterilely. No immediate complication was identified. DAP 310 FLUOROSCOPY TIME: 1.4 minutes. SEDATION: Dr. Shila Scott was personally responsible for the administration of moderate sedation during the procedure performed, including the use of an independent trained observer who had no other duties during the procedure. The drugs utilized were IV fentanyl and versed (see nursing log for details). The total time of supervision by the attending physician was approximately 30 minutes. FINDINGS: Widely patent right IJV. Post procedure image demonstrates smooth course of the hemodialysi s catheter with the tip in the right atrium. IMPRESSION: Successful placement of 14.5 [place] Al[place] Path, 27 cm long hemodialysis catheter through right international student advisor al jugular vein. Plan: Please contact IR for removal when no longer needed.
[2025-02-21] VITALS (8 sets, daily range): BP systolic 109–156; BP diastolic 67–100; PULSE 76–93; RESP 16–20; TEMP 97.7–99.6; O2SAT 92–98
[2025-02-21 07:29] LABS: Hematocrit 30.5 % (41.0-53.0); Hemoglobin 9.9 g/dL (13.5-17.5); Mean Corpuscular Hemoglobin 27.4 pg (28.0-32.0); Mean Corpuscular Volume 84.7 fL (80.0-100.0); Nucleated Red Blood Cells % 0.4 %
[2025-02-21 08:00] LABS: Chloride 101 mmol/L (98-107); Sodium 138 mmol/L (136-145)
[2025-02-21 08:04] LABS: Potassium 3.4 mmol/L (3.5-5.1)
--- NOTE | 2025-02-21 09:26 | DVHPN2 ---
Reviewed: Care Plan, H&P, Labs, Medications, Previous Orders, Radiology Changes from previous H/P or p: No Changes Eyes: No Pain, No Vision change, No Conjunctivae inflammation, No Eyelid inflammation, No Other, No Redness ENT: Other Cardiovascular: No Chest Pain, No Palpitations, No Orthopnea, No Paroxysmal Noc. Dyspnea, No Edema, No Lt Headedness, No Other Respiratory: No Cough, No Dry, No Shortness of breath, No SOB with excertion, No Wheezing, No Hemoptysis, No Pleuritic Pain, No Sputum, No Other Gastrointestinal: No Nausea, No Vomiting, No Abdominal Pain, No Diarrhea, No Constipation, No Melena, No Hematochezia, No Other Genitourinary: No Dysuria, No Frequency, No Incontinence, No Hematuria, No Retention, No Other Musculoskeletal: No other, No neck pain, No shoulder pain, No arm pain, No back pain, No hand pain, No leg pain, No foot pain Skin: No Rash, No Lesions, No Jaundice, No Bruising, No Other Objective Vitals Vital Signs Date Time Temp Pulse Resp B/P (MAP) Pulse Ox O2 Delivery O2 Flow Rate FiO2 02/21/25 08:46 98.0 76 18 156/85 (108) 97 98.0 02/20/25 20:00 Room Air* 0 21 Intake/Output Intake and Output 02/21/25 07:00 Intake Total 1425 ml Output Total 2200 ml Balance -775 ml Intake Oral 1425 ml Output Urine Total 2200 ml Medications Current Medications Medications Dose Ordered Sig/Yvan Route Start Time Stop Time Status Last Admin Dose Admin Acetaminophen/ Hydrocodone Bitart 1 tab Q4HP PRN PO 02/17/25 08:00 02/21/25 05:08 1 TAB Ondansetron HCl 4 mg Q4HP PRN IV 02/17/25 08:00 Docusate Sodium 100 mg BIDPRN PRN PO 02/17/25 08:00 Acetaminophen 650 mg Q6HP PRN PO 02/17/25 08:00 Nitroglycerin 0.4 mg Q5MINP PRN SL 02/17/25 08:00 Morphine Sulfate 2 mg Q30M PRN IV 02/17/25 08:00 Aspirin 81 mg DAILY PO 02/17/25 10:00 02/18/25 09:48 81 MG Hydroxychloroquine Sulfate 200 mg BID PO 02/17/25 10:00 02/20/25 21:57 200 MG Pantoprazole Sodium 40 mg DAILY PO 02/17/25 10:00 02/19/25 09:39 40 MG Patient Own Medication 25 mg Q12HR PO 02/17/25 10:00 UNV Patient Own Medication 1 cap DAILY PO 02/17/25 10:00 UNV Ceftriaxone Sodium 50 ml @ 100 mls/hr DAILY@09 IV 02/17/25 09:00 02/19/25 09:38 100 MLS/HR Carvedilol 25 mg BID PO 02/17/25 10:00 02/20/25 21:58 25 MG Cholecalciferol 5,000 unit DAILY PO 02/17/25 10:00 02/19/25 09:39 5,000 UNIT Gabapentin 100 mg BID PO 02/17/25 22:00 02/20/25 21:57 100 MG Hydralazine HCl 10 mg Q6HP PRN IV 02/17/25 11:00 02/21/25 00:46 10 MG Clonidine HCl 0.2 mg Q8H PO 02/17/25 19:15 02/21/25 04:08 0.2 MG Laboratory Results Laboratory Tests 02/21/25 06:20 Chemistry Test 02/21/25 06:20 Albumin Pending Calcium Level Pending Total Protein Pending LFT Test 02/21/25 06:20 Alanine Aminotransferase (ALT) Pending Alkaline Phosphatase Pending Aspartate Amino Transferase (AST) Pending Total Bilirubin Pending Urinalysis Test 02/18/25 12:00 Urine Color Light-yellow (Yellow) Urine Clarity Clear (Clear) Urine pH 5.5 (5.0-9.0) Urine Specific [place] 1.010 (1.001-1.035) Urine Protein 1+ (Negative) H Urine Ketones Negative (Negative) Urine Blood Trace /uL (Negative) H Urine Nitrite Negative (Negative) Urine Bilirubin Negative (Negative) Urine Urobilinogen Normal mg/dL (Negative) Urine Leukocyte Esterase 3+ /uL (Negative) Urine RBC 7 /hpf (0 - 3) Urine Microscopic WBC 85 /HPF (0-3) H Urine Squamous Epithelial Cells None seen /hpf (<5) Urine Bacteria None seen /hpf (None Seen) Urine Creatinine 75.76 mg/dL (30.0-125.0) Urine Sodium 82 mmol/L (40-220) Urine Glucose Normal mg/dL (Normal) Urine Total Protein 107.3 mg/dL (1-14) H Microbiology Microbiology Date/Time Source Procedure Growth Status 02/19/25 14:32 Blood Blood Culture - Preliminary NO GROWTH AFTER 24 HOURS OF INCUBATION. Resulted Labs and/or images reviewed: Labs reviewed by me, Image(s) reviewed by me Assessment/Plan Assessment/Plan Sepsis secondary to acute right parotitis Rocephin BERNICE on CKD 4 secondary to grade 4 lupus nephritis: BUN creatinine 50 and 6.7: Nephrology consult by Dr. 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
[2025-02-21 10:22] LABS: Alanine Aminotransferase 15 U/L (7-40); Albumin 3.5 g/dL (3.2-4.8); Anion Gap 15 (5-15); BUN/Creatinine Ratio 7.1 (10.0-20.0); Bilirubin, Total 0.6 mg/dL (0.2-1.0); Calcium 8.9 mg/dL (8.7-10.4); Carbon Dioxide 22 mmol/L (20-31); Glucose 101 mg/dL (74-106); Total Protein 6.5 g/dL (5.7-8.2)
[2025-02-21 10:44] LABS: Alkaline Phosphatase 117 U/L (46-116); Blood Urea Nitrogen 30 mg/dL (9-23)
[2025-02-21] MEDS: POTASSIUM EFFERVESENT TAB 25 MEQ PO ONE (14:29)
--- NOTE | 2025-02-21 14:40 | DVHPN2 ---
Progress Note Date Seen: Feb 21, 2025 Medical Necessity Reason Pt with a Central, PICC or Fol: No Subjective Patient reports: No new complaints, Feels better Review of Systems: HEENT:Normal, CVS:Normal, RESPIRATORY:Normal, GI:Normal, :Normal, MSK:Normal, NEURO:Normal Objective vital signs Vital Sign Date Time Temp Pulse Resp B/P (MAP) Pulse Ox O2 Delivery O2 Flow Rate FiO2 02/21/25 14:29 147/96 02/21/25 13:10 98.1 87 16 98 98.1 02/20/25 20:00 Room Air* 0 21 Total Intake and Output 02/20/25 02/20/25 02/21/25 15:00 23:00 07:00 Intake Total 275 ml 675 ml 475 ml Output Total 550 ml 725 ml 925 ml Balance -275 ml -50 ml -450 ml medications Current Medications Medications Dose Ordered Sig/Yvan Route Start Time Stop Time Status Last Admin Dose Admin Acetaminophen/ Hydrocodone Bitart 1 tab Q4HP PRN PO 02/17/25 08:00 02/21/25 05:08 1 TAB Ondansetron HCl 4 mg Q4HP PRN IV 02/17/25 08:00 Docusate Sodium 100 mg BIDPRN PRN PO 02/17/25 08:00 Acetaminophen 650 mg Q6HP PRN PO 02/17/25 08:00 Nitroglycerin 0.4 mg Q5MINP PRN SL 02/17/25 08:00 Morphine Sulfate 2 mg Q30M PRN IV 02/17/25 08:00 Aspirin 81 mg DAILY PO 02/17/25 10:00 02/21/25 09:37 81 MG Hydroxychloroquine Sulfate 200 mg BID PO 02/17/25 10:00 02/21/25 09:36 200 MG Pantoprazole Sodium 40 mg DAILY PO 02/17/25 10:00 02/21/25 09:36 40 MG Patient Own Medication 25 mg Q12HR PO 02/17/25 10:00 UNV Patient Own Medication 1 cap DAILY PO 02/17/25 10:00 UNV Ceftriaxone Sodium 50 ml @ 100 mls/hr DAILY@09 IV 02/17/25 09:00 02/21/25 09:37 100 MLS/HR Carvedilol 25 mg BID PO 02/17/25 10:00 02/21/25 09:36 25 MG Cholecalciferol 5,000 unit DAILY PO 02/17/25 10:00 02/21/25 09:36 5,000 UNIT Gabapentin 100 mg BID PO 02/17/25 22:00 02/21/25 09:36 100 MG Hydralazine HCl 10 mg Q6HP PRN IV 02/17/25 11:00 02/21/25 00:46 10 MG Clonidine HCl 0.2 mg Q8H PO 02/17/25 19:15 02/21/25 14:29 0.2 MG Examination: GENERAL:Normal, HEENT:Normal, NECK:Normal, LUNGS:Normal, CVS:Normal, ABDOMEN:Normal, MSK:Normal, SKIN:Normal, NEURO:Normal, :Normal laboratory and microbiology Laboratory Tests 02/21/25 06:20 Test 02/21/25 06:20 Range/Units Serum Glucose 101 74-106 mg/dL Microbiology Date/Time Source Procedure Growth Status 02/19/25 14:32 Blood Blood Culture - Preliminary NO GROWTH AFTER 24 HOURS OF INCUBATION. 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
[2025-02-22] VITALS (8 sets, daily range): BP systolic 127–162; BP diastolic 81–101; PULSE 77–94; RESP 16–96; TEMP 98–98.8; O2SAT 92–99
[2025-02-22 07:23] LABS: Hematocrit 31.6 % (41.0-53.0); Hemoglobin 10.0 g/dL (13.5-17.5); Mean Corpuscular Hemoglobin 27.3 pg (28.0-32.0); Mean Corpuscular Volume 86.1 fL (80.0-100.0); Nucleated Red Blood Cells % 0.5 %
[2025-02-22 07:45] LABS: Alanine Aminotransferase 17 U/L (7-40); Albumin 3.6 g/dL (3.2-4.8); Alkaline Phosphatase 111 U/L (46-116); Anion Gap 11 (5-15); BUN/Creatinine Ratio 4.5 (10.0-20.0); Bilirubin, Total 0.6 mg/dL (0.2-1.0); Blood Urea Nitrogen 20 mg/dL (9-23); Calcium 9.1 mg/dL (8.7-10.4); Carbon Dioxide 27 mmol/L (20-31); Chloride 99 mmol/L (98-107); Glucose 103 mg/dL (74-106); Potassium 3.6 mmol/L (3.5-5.1); Sodium 137 mmol/L (136-145); Total Protein 6.7 g/dL (5.7-8.2)
[2025-02-22 08:05] LABS: Anisocytosis Slight; Ovalocytes FEW
--- NOTE | 2025-02-22 08:21 | DVHPN2 ---
Reviewed: Care Plan, H&P, Labs, Medications, Previous Orders, Radiology Changes from previous H/P or p: No Changes Eyes: No Pain, No Vision change, No Conjunctivae inflammation, No Eyelid inflammation, No Other, No Redness ENT: Other Cardiovascular: No Chest Pain, No Palpitations, No Orthopnea, No Paroxysmal Noc. Dyspnea, No Edema, No Lt Headedness, No Other Respiratory: No Cough, No Dry, No Shortness of breath, No SOB with excertion, No Wheezing, No Hemoptysis, No Pleuritic Pain, No Sputum, No Other Gastrointestinal: No Nausea, No Vomiting, No Abdominal Pain, No Diarrhea, No Constipation, No Melena, No Hematochezia, No Other Genitourinary: No Dysuria, No Frequency, No Incontinence, No Hematuria, No Retention, No Other Musculoskeletal: No other, No neck pain, No shoulder pain, No arm pain, No back pain, No hand pain, No leg pain, No foot pain Skin: No Rash, No Lesions, No Jaundice, No Bruising, No Other Objective Vitals Vital Signs Date Time Temp Pulse Resp B/P (MAP) Pulse Ox O2 Delivery O2 Flow Rate FiO2 02/22/25 05:00 98.2 84 19 143/92 (109) 95 98.2 02/21/25 20:00 Room Air* 0 21 Intake/Output Intake and Output 02/22/25 07:00 Intake Total 920 ml Output Total 800 ml Balance 120 ml Intake Oral 870 ml IV Total 50 ml Output Urine Total 800 ml Medications Current Medications Medications Dose Ordered Sig/Yvan Route Start Time Stop Time Status Last Admin Dose Admin Acetaminophen/ Hydrocodone Bitart 1 tab Q4HP PRN PO 02/17/25 08:00 02/22/25 03:51 1 TAB Ondansetron HCl 4 mg Q4HP PRN IV 02/17/25 08:00 Docusate Sodium 100 mg BIDPRN PRN PO 02/17/25 08:00 Acetaminophen 650 mg Q6HP PRN PO 02/17/25 08:00 Nitroglycerin 0.4 mg Q5MINP PRN SL 02/17/25 08:00 Morphine Sulfate 2 mg Q30M PRN IV 02/17/25 08:00 Aspirin 81 mg DAILY PO 02/17/25 10:00 02/21/25 09:37 81 MG Hydroxychloroquine Sulfate 200 mg BID PO 02/17/25 10:00 02/21/25 21:49 200 MG Pantoprazole Sodium 40 mg DAILY PO 02/17/25 10:00 02/21/25 09:36 40 MG Patient Own Medication 25 mg Q12HR PO 02/17/25 10:00 UNV Patient Own Medication 1 cap DAILY PO 02/17/25 10:00 UNV Ceftriaxone Sodium 50 ml @ 100 mls/hr DAILY@09 IV 02/17/25 09:00 02/21/25 09:37 100 MLS/HR Carvedilol 25 mg BID PO 02/17/25 10:00 02/21/25 21:48 25 MG Cholecalciferol 5,000 unit DAILY PO 02/17/25 10:00 02/21/25 09:36 5,000 UNIT Gabapentin 100 mg BID PO 02/17/25 22:00 02/21/25 21:49 100 MG Hydralazine HCl 10 mg Q6HP PRN IV 02/17/25 11:00 02/21/25 00:46 10 MG Clonidine HCl 0.2 mg Q8H PO 02/17/25 19:15 02/22/25 03:50 0.2 MG Laboratory Results Laboratory Tests 02/22/25 06:09 Chemistry Test 02/22/25 06:09 Albumin 3.6 g/dL (3.2-4.8) Calcium Level 9.1 mg/dL (8.7-10.4) Total Protein 6.7 g/dL (5.7-8.2) LFT Test 02/22/25 06:09 Alanine Aminotransferase (ALT) 17 U/L (7-40) Alkaline Phosphatase 111 U/L (46-116) Aspartate Amino Transferase (AST) 24 U/L (13-40) Total Bilirubin 0.6 mg/dL (0.2-1.0) Urinalysis Test 02/18/25 12:00 Urine Color Light-yellow (Yellow) Urine Clarity Clear (Clear) Urine pH 5.5 (5.0-9.0) Urine Specific [place] 1.010 (1.001-1.035) Urine Protein 1+ (Negative) H Urine Ketones Negative (Negative) Urine Blood Trace /uL (Negative) H Urine Nitrite Negative (Negative) Urine Bilirubin Negative (Negative) Urine Urobilinogen Normal mg/dL (Negative) Urine Leukocyte Esterase 3+ /uL (Negative) Urine RBC 7 /hpf (0 - 3) Urine Microscopic WBC 85 /HPF (0-3) H Urine Squamous Epithelial Cells None seen /hpf (<5) Urine Bacteria None seen /hpf (None Seen) Urine Creatinine 75.76 mg/dL (30.0-125.0) Urine Sodium 82 mmol/L (40-220) Urine Glucose Normal mg/dL (Normal) Urine Total Protein 107.3 mg/dL (1-14) H Microbiology Microbiology Date/Time Source Procedure Growth Status 02/19/25 14:32 Blood Blood Culture - Preliminary NO GROWTH AFTER 48 HOURS OF INCUBATION. Resulted Labs and/or images reviewed: Labs reviewed by me, Image(s) reviewed by me Assessment/Plan Assessment/Plan Sepsis secondary to acute right parotitis Rocephin BERNICE on CKD 4 secondary to grade 4 lupus nephritis: BUN creatinine 50 and 6.7: Nephrology consult by Dr. Mckeon appreciated; status post tunneled dialysis cath placement by radiologist, patient getting dialysis today, outpatient chair time with [facility] dialysis set up for 4:45 p.m. 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
--- NOTE | 2025-02-22 11:00 | DVHPN2 ---
Progress Note Date Seen: Feb 20, 2025 Medical Necessity Reason Pt with a Central, PICC or Fol: No Subjective Patient reports: No new complaints Objective vital signs Vital Sign Date Time Temp Pulse Resp B/P (MAP) Pulse Ox O2 Delivery O2 Flow Rate FiO2 02/22/25 09:12 98.0 88 16 162/101 (121) 92 98.0 02/21/25 20:00 Room Air* 0 21 Total Intake and Output 02/21/25 02/21/25 02/22/25 15:00 23:00 07:00 Intake Total 50 ml 320 ml 550 ml Output Total 500 ml 300 ml Balance 50 ml -180 ml 250 ml medications Current Medications Medications Dose Ordered Sig/Yvan Route Start Time Stop Time Status Last Admin Dose Admin Acetaminophen/ Hydrocodone Bitart 1 tab Q4HP PRN PO 02/17/25 08:00 02/22/25 03:51 1 TAB Ondansetron HCl 4 mg Q4HP PRN IV 02/17/25 08:00 Docusate Sodium 100 mg BIDPRN PRN PO 02/17/25 08:00 Acetaminophen 650 mg Q6HP PRN PO 02/17/25 08:00 Nitroglycerin 0.4 mg Q5MINP PRN SL 02/17/25 08:00 Morphine Sulfate 2 mg Q30M PRN IV 02/17/25 08:00 Aspirin 81 mg DAILY PO 02/17/25 10:00 02/22/25 10:36 81 MG Hydroxychloroquine Sulfate 200 mg BID PO 02/17/25 10:00 02/22/25 10:36 200 MG Pantoprazole Sodium 40 mg DAILY PO 02/17/25 10:00 02/22/25 10:36 40 MG Patient Own Medication 25 mg Q12HR PO 02/17/25 10:00 UNV Patient Own Medication 1 cap DAILY PO 02/17/25 10:00 UNV Ceftriaxone Sodium 50 ml @ 100 mls/hr DAILY@09 IV 02/17/25 09:00 02/22/25 10:35 100 MLS/HR Carvedilol 25 mg BID PO 02/17/25 10:00 02/21/25 21:48 25 MG Cholecalciferol 5,000 unit DAILY PO 02/17/25 10:00 02/22/25 10:36 5,000 UNIT Gabapentin 100 mg BID PO 02/17/25 22:00 02/22/25 10:36 100 MG Hydralazine HCl 10 mg Q6HP PRN IV 02/17/25 11:00 02/21/25 00:46 10 MG Clonidine HCl 0.2 mg Q8H PO 02/17/25 19:15 02/22/25 03:50 0.2 MG laboratory and microbiology Laboratory Tests 02/22/25 06:09 Test 02/22/25 06:09 Range/Units Serum Glucose 103 74-106 mg/dL Microbiology Date/Time Source Procedure Growth Status 02/19/25 14:32 Blood Blood Culture - Preliminary NO GROWTH AFTER 48 HOURS OF INCUBATION. 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
--- NOTE | 2025-02-22 11:08 | DVHPN2 ---
Progress Note Date Seen: Feb 22, 2025 Medical Necessity Reason Pt with a Central, PICC or Fol: No Subjective Patient reports: No new complaints Review of Systems: Deferred Objective vital signs Vital Sign Date Time Temp Pulse Resp B/P (MAP) Pulse Ox O2 Delivery O2 Flow Rate FiO2 02/22/25 09:12 98.0 88 16 162/101 (121) 92 98.0 02/21/25 20:00 Room Air* 0 21 Total Intake and Output 02/21/25 02/21/25 02/22/25 15:00 23:00 07:00 Intake Total 50 ml 320 ml 550 ml Output Total 500 ml 300 ml Balance 50 ml -180 ml 250 ml medications Current Medications Medications Dose Ordered Sig/Yvan Route Start Time Stop Time Status Last Admin Dose Admin Acetaminophen/ Hydrocodone Bitart 1 tab Q4HP PRN PO 02/17/25 08:00 02/22/25 03:51 Ondansetron HCl 4 mg Q4HP PRN IV 02/17/25 08:00 Docusate Sodium 100 mg BIDPRN PRN PO 02/17/25 08:00 Acetaminophen 650 mg Q6HP PRN PO 02/17/25 08:00 Nitroglycerin 0.4 mg Q5MINP PRN SL 02/17/25 08:00 Morphine Sulfate 2 mg Q30M PRN IV 02/17/25 08:00 Aspirin 81 mg DAILY PO 02/17/25 10:00 02/22/25 10:36 Hydroxychloroquine Sulfate 200 mg BID PO 02/17/25 10:00 02/22/25 10:36 Pantoprazole Sodium 40 mg DAILY PO 02/17/25 10:00 02/22/25 10:36 Patient Own Medication 25 mg Q12HR PO 02/17/25 10:00 UNV Patient Own Medication 1 cap DAILY PO 02/17/25 10:00 UNV Ceftriaxone Sodium 50 ml @ 100 mls/hr DAILY@09 IV 02/17/25 09:00 02/22/25 10:35 Carvedilol 25 mg BID PO 02/17/25 10:00 02/21/25 21:48 Cholecalciferol 5,000 unit DAILY PO 02/17/25 10:00 02/22/25 10:36 Gabapentin 100 mg BID PO 02/17/25 22:00 02/22/25 10:36 Hydralazine HCl 10 mg Q6HP PRN IV 02/17/25 11:00 02/21/25 00:46 Clonidine HCl 0.2 mg Q8H PO 02/17/25 19:15 02/22/25 03:50 Examination: GENERAL:Normal, HEENT:Normal, NECK:Normal, LUNGS:Normal, CVS:Normal, ABDOMEN:Normal, MSK:Normal, SKIN:Normal, NEURO:Normal, :Normal laboratory and microbiology Laboratory Tests 02/22/25 06:09 Test 02/22/25 06:09 Range/Units Serum Glucose 103 74-106 mg/dL Microbiology Date/Time Source Procedure Growth Status 02/19/25 14:32 Blood Blood Culture - Preliminary NO GROWTH AFTER 48 HOURS OF INCUBATION. 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
[2025-02-23] VITALS (7 sets, daily range): BP systolic 117–196; BP diastolic 71–121; PULSE 78–92; RESP 18–21; TEMP 38; O2SAT 93–98
[2025-02-23 06:51] LABS: Hematocrit 29.6 % (41.0-53.0); Hemoglobin 9.7 g/dL (13.5-17.5); Mean Corpuscular Hemoglobin 27.9 pg (28.0-32.0); Mean Corpuscular Volume 85.2 fL (80.0-100.0)
[2025-02-23 07:02] LABS: Alanine Aminotransferase 15 U/L (7-40); Albumin 3.4 g/dL (3.2-4.8); Alkaline Phosphatase 99 U/L (46-116); Anion Gap 10 (5-15); BUN/Creatinine Ratio 5.4 (10.0-20.0); Bilirubin, Total 0.6 mg/dL (0.2-1.0); Calcium 9.1 mg/dL (8.7-10.4); Carbon Dioxide 30 mmol/L (20-31); Chloride 98 mmol/L (98-107); Potassium 3.5 mmol/L (3.5-5.1); Sodium 138 mmol/L (136-145); Total Protein 6.4 g/dL (5.7-8.2)
[2025-02-23 07:10] LABS: Blood Urea Nitrogen 28 mg/dL (9-23); Glucose 108 mg/dL (74-106)
[2025-02-23 07:56] LABS: Anisocytosis Slight; Total Cells Counted 100.0 (100)
--- NOTE | 2025-02-23 09:57 | DVHPN2 ---
Reviewed: Care Plan, H&P, Labs, Medications, Previous Orders, Radiology Changes from previous H/P or p: No Changes Eyes: No Pain, No Vision change, No Conjunctivae inflammation, No Eyelid inflammation, No Other, No Redness ENT: Other Cardiovascular: No Chest Pain, No Palpitations, No Orthopnea, No Paroxysmal Noc. Dyspnea, No Edema, No Lt Headedness, No Other Respiratory: No Cough, No Dry, No Shortness of breath, No SOB with excertion, No Wheezing, No Hemoptysis, No Pleuritic Pain, No Sputum, No Other Gastrointestinal: No Nausea, No Vomiting, No Abdominal Pain, No Diarrhea, No Constipation, No Melena, No Hematochezia, No Other Genitourinary: No Dysuria, No Frequency, No Incontinence, No Hematuria, No Retention, No Other Musculoskeletal: No other, No neck pain, No shoulder pain, No arm pain, No back pain, No hand pain, No leg pain, No foot pain Skin: No Rash, No Lesions, No Jaundice, No Bruising, No Other Objective Vitals Vital Signs Date Time Temp Pulse Resp B/P (MAP) Pulse Ox O2 Delivery O2 Flow Rate FiO2 02/23/25 08:30 100.4 90 18 117/71 (86) 93 100.4 02/22/25 20:00 Room Air* 0 21 Intake/Output Intake and Output 02/23/25 07:00 Intake Total 1000 ml Output Total 1150 ml Balance -150 ml Intake Oral 950 ml IV Total 50 ml Output Urine Total 1150 ml # Bowel Movements 1 Medications Current Medications Medications Dose Ordered Sig/Yvan Route Start Time Stop Time Status Last Admin Dose Admin Acetaminophen/ Hydrocodone Bitart 1 tab Q4HP PRN PO 02/17/25 08:00 02/22/25 19:43 1 TAB Ondansetron HCl 4 mg Q4HP PRN IV 02/17/25 08:00 Docusate Sodium 100 mg BIDPRN PRN PO 02/17/25 08:00 Acetaminophen 650 mg Q6HP PRN PO 02/17/25 08:00 Nitroglycerin 0.4 mg Q5MINP PRN SL 02/17/25 08:00 Morphine Sulfate 2 mg Q30M PRN IV 02/17/25 08:00 Aspirin 81 mg DAILY PO 02/17/25 10:00 02/22/25 10:36 81 MG Hydroxychloroquine Sulfate 200 mg BID PO 02/17/25 10:00 02/22/25 22:19 200 MG Pantoprazole Sodium 40 mg DAILY PO 02/17/25 10:00 02/22/25 10:36 40 MG Patient Own Medication 25 mg Q12HR PO 02/17/25 10:00 UNV Patient Own Medication 1 cap DAILY PO 02/17/25 10:00 UNV Ceftriaxone Sodium 50 ml @ 100 mls/hr DAILY@09 IV 02/17/25 09:00 02/22/25 10:35 100 MLS/HR Carvedilol 25 mg BID PO 02/17/25 10:00 02/22/25 22:19 25 MG Cholecalciferol 5,000 unit DAILY PO 02/17/25 10:00 02/22/25 10:36 5,000 UNIT Gabapentin 100 mg BID PO 02/17/25 22:00 02/22/25 22:19 100 MG Hydralazine HCl 10 mg Q6HP PRN IV 02/17/25 11:00 02/21/25 00:46 10 MG Clonidine HCl 0.2 mg Q8H PO 02/17/25 19:15 02/22/25 19:43 0.2 MG Laboratory Results Laboratory Tests 02/23/25 06:15 Chemistry Test 02/23/25 06:15 Albumin 3.4 g/dL (3.2-4.8) Calcium Level 9.1 mg/dL (8.7-10.4) Total Protein 6.4 g/dL (5.7-8.2) LFT Test 02/23/25 06:15 Alanine Aminotransferase (ALT) 15 U/L (7-40) Alkaline Phosphatase 99 U/L (46-116) Aspartate Amino Transferase (AST) 20 U/L (13-40) Total Bilirubin 0.6 mg/dL (0.2-1.0) Urinalysis Test 02/18/25 12:00 Urine Color Light-yellow (Yellow) Urine Clarity Clear (Clear) Urine pH 5.5 (5.0-9.0) Urine Specific [place] 1.010 (1.001-1.035) Urine Protein 1+ (Negative) H Urine Ketones Negative (Negative) Urine Blood Trace /uL (Negative) H Urine Nitrite Negative (Negative) Urine Bilirubin Negative (Negative) Urine Urobilinogen Normal mg/dL (Negative) Urine Leukocyte Esterase 3+ /uL (Negative) Urine RBC 7 /hpf (0 - 3) Urine Microscopic WBC 85 /HPF (0-3) H Urine Squamous Epithelial Cells None seen /hpf (<5) Urine Bacteria None seen /hpf (None Seen) Urine Creatinine 75.76 mg/dL (30.0-125.0) Urine Sodium 82 mmol/L (40-220) Urine Glucose Normal mg/dL (Normal) Urine Total Protein 107.3 mg/dL (1-14) H Microbiology Microbiology Date/Time Source Procedure Growth Status 02/19/25 14:32 Blood Blood Culture - Preliminary NO GROWTH AFTER 72 HOURS OF INCUBATION. Resulted Labs and/or images reviewed: Labs reviewed by me, Image(s) reviewed by me Assessment/Plan Assessment/Plan Sepsis secondary to acute right parotitis Rocephin BERNICE on CKD 4 secondary to grade 4 lupus nephritis: BUN creatinine 50 and 6.7: Nephrology consult by Dr. Mckeon appreciated; status post tunneled dialysis cath placement by radiologist, patient getting dialysis today 02-23-25, outpatient chair time with [facility] dialysis set up for 4:45 p.m. Sunday Uncontrolled hypertension Systemic lupus erythematosus Grade 4 lupus nephritis Sleep apnea on CPAP at home, continue CPAP Time spent 55 minutes Advanced care planning time 20 minutes Patient is full code PCP and certified medical assistant in [place] Plan discussed with: Patient Date of Service: Feb 23, 2025 Billing Provider: SAMSON DELACRUZ MD Common Visit Codes: [id number] INP/OBS CARE(HIGH) SAMSON DELACRUZ MD Feb 23, 2025 09:57
--- NOTE | 2025-02-23 10:05 | DVHDS2 ---
Discharge Summary Date of Admission Feb 17, 2025 at 07:53 Date of Discharge: Feb 23, 2025 Admitting Diagnosis Shortness of breath right facial swelling Wounds: None Labs/Diagnostic Data: Laboratory Results Test 02/23/25 06:15 02/22/25 06:09 02/19/25 09:12 02/19/25 05:48 White Blood Count 16.4 10^3/uL (4.4-10.8) Red Blood Count 3.48 10^6/uL (4.5-5.90) Hemoglobin 9.7 g/dL (13.5-17.5) Hematocrit 29.6 % (41.0-53.0) Mean Corpuscular Volume 85.2 fL (80.0-100.0) Mean Corpuscular Hemoglobin 27.9 pg (28.0-32.0) Mean Corpuscular Hemoglobin Concent 32.7 g/dL (32.0-36.0) Red Cell Distribution Width 20.0 % (11.8-14.3) Platelet Count 207 10^3/uL (140-450) Mean Platelet Volume 8.2 fL (6.9-10.8) Neutrophils (%) (Auto) % (37.0-80.0) Lymphocytes (%) (Auto) % (10.0-50.0) Monocytes (%) (Auto) % (0.0-12.0) Basophils (%) (Auto) % (0.0-2.0) Neutrophils # (Auto) 10 ^3/uL (1.6-8.6) Lymphocytes # (Auto) 10 ^3/uL (0.4-5.4) Monocytes # (Auto) 10 ^3/uL (0-1.3) Differential Total Cells Counted 100.0 (100) Neutrophils % (Manual) 56 (37.0-80.0) Band Neutrophils % (Manual) 3 Lymphocytes % (Manual) 11 (10.0-50.0) Monocytes % (Manual) 16 (0-12) Eosinophils % (Manual) 14 (0-7) Basophils % (Manual) 0 (0.0-2.0) Metamyelocytes % (manual) 0 Myelocytes % (Manual) 0 Promyelocytes % (Manual) 0 Blast Cells % (Manual) 0 Reactive Lymphocytes 0 Platelet Estimate Adequate Anisocytosis (manual) Slight Sodium Level 138 mmol/L (136-145) Potassium Level 3.5 mmol/L (3.5-5.1) Chloride Level 98 mmol/L (98-107) Carbon Dioxide Level 30 mmol/L (20-31) Anion Gap 10 (5-15) Blood Urea Nitrogen 28 mg/dL (9-23) Creatinine 5.15 mg/dL (0.700-1.30) Glomerular Filtration Rate Calc 13 mL/min (>90) BUN/Creatinine Ratio 5.4 (10.0-20.0) Serum Glucose 108 mg/dL (74-106) Calcium Level 9.1 mg/dL (8.7-10.4) Total Bilirubin 0.6 mg/dL (0.2-1.0) Aspartate Amino Transferase (AST) 20 U/L (13-40) Alanine Aminotransferase (ALT) 15 U/L (7-40) Alkaline Phosphatase 99 U/L (46-116) Total Protein 6.4 g/dL (5.7-8.2) Albumin 3.4 g/dL (3.2-4.8) Eosinophils (%) (Auto) 15.2 % (0.0-7.0) Eosinophils # (Auto) 2.3 10 ^3/uL (0-0.8) Basophils # (Auto) 0.1 10 ^3/uL (0-0.2) Nucleated Red Blood Cells 0.5 % Ovalocytes Few Prothrombin Time 11.4 sec (9.3-11.8) Prothrombin Time INR 1.08 (0.9-1.15) Activated Partial Thromboplast Time 33.7 SEC (24.5-34.5) Hepatitis A IgM Antibody Negative Hepatitis B Surface Antigen Negative (Negative) Hepatitis B Core IgM Antibody Negative (Negative) Hepatitis C Antibody Negative (Negative) Test 02/18/25 12:00 02/18/25 06:00 02/16/25 20:33 Urine Color Light-yellow (Yellow) Urine Clarity Clear (Clear) Urine pH 5.5 (5.0-9.0) Urine Specific [place] 1.010 (1.001-1.035) Urine Protein 1+ (Negative) Urine Ketones Negative (Negative) Urine Blood Trace /uL (Negative) Urine Nitrite Negative (Negative) Urine Bilirubin Negative (Negative) Urine Urobilinogen Normal mg/dL (Negative) Urine Leukocyte Esterase 3+ /uL (Negative) Urine RBC 7 /hpf (0 - 3) Urine Microscopic WBC 85 /HPF (0-3) Urine Squamous Epithelial Cells None seen /hpf (<5) Urine Bacteria None seen /hpf (None Seen) Urine Creatinine 75.76 mg/dL (30.0-125.0) Urine Sodium 82 mmol/L (40-220) Urine Glucose Normal mg/dL (Normal) Urine Total Protein 107.3 mg/dL (1-14) Phosphorus Level 4.8 mg/dL (2.4-5.1) Magnesium Level 1.9 mg/dL (1.6-2.6) Vitamin D 25-Hydroxy 19.0 ng/mL (30.0-100) Lactic Acid Level 0.7 mmol/L (0.4-2.0) Other Laboratory Tests 02/23/25 06:15 Brief Hx & Hospital Course: 44-year-old male with a history of systemic lupus erythematosus came in for shortness of breaths and swelling in the right side of the face found to have sepsis secondary to acute right parotitis treated with the IV Rocephin patient has a history of CKD four secondary to grade 4 lupus nephritis seen by Nephrology and advised the patient needs to have dialysis. Patient had tunneled dialysis cath placed by the radiologist and received dialysis by DR Mckeon. Outpatient chart time arranged with the [facility] dialysis Sunday for 40 5:00 p.m. and the patient was advised accordingly history of CPAP area patient uses CPAP reviewed all the home medications. Patient being discharged home. Prescription for Keflex for parotitis transmitted to the pharmacy Consults/Reason for consult Nephrology Operations or Procedures Hemodialysis Dialysis cath placement Condition at Discharge: Fair Final Diagnosis/Problems List Sepsis secondary to acute right parotitis Rocephin BERNICE on CKD 4 secondary to grade 4 lupus nephritis: BUN creatinine 50 and 6.7: Nephrology consult by Dr. Mckeon appreciated; status post tunneled dialysis cath placement by radiologist, patient getting dialysis today 02-23-25, outpatient chair time with [facility] dialysis set up for 4:45 p.m. Sunday Uncontrolled hypertension Systemic lupus erythematosus Grade 4 lupus nephritis Sleep apnea on CPAP at home, continue CPAP Discharge Disposition: Home Discharge Instruct/Medications Diet: Renal Activity: Light activity Follow Up/Referral: Follow up with the [facility] dialysis for 4: 45 PM Sunday for dialysis Follow up with the primary Dr Niko all previous home medications Medications: No new meds Scheduled Allopurinol (Allopurinol), 300 MG PO DAILY Aspirin (Aspirin Adult Low Dose), 1 TAB PO DAILY, (Reported) Carvedilol (Carvedilol), 25 MG PO Q12HR, (Reported) Chlorthalidone (Chlorthalidone), 1 TAB PO DAILY, (Reported) Cholecalciferol (Vitamin D3), 1 CAP PO DAILY, (Reported) Clonidine Hydrochloride (Clonidine Hcl), 1 TAB PO BID, (Reported) Furosemide (Furosemide), 2 TAB PO DAILY, (Reported) Gabapentin (Gabapentin), 100 MG PO BID, (Reported) Hydroxychloroquine Sulfate (Hydroxychloroquine Sulfat), 1 TAB PO BID, (Reported) Mycophenolate Mofetil (Mycophenolate Mofetil), 1 TAB PO BID, (Reported) Pantoprazole Sodium Sesquihydr (Protonix), 40 MG PO DAILY Prednisone (Prednisone), 20 MG PO DAILY Scheduled PRN Hydrocodone-Acetaminophen (Hydrocodone Bitartrate/AC 5-325 mg), 1 TAB PO Q4HP PRN 45 (Time taken for discharge summary 45 minutes) Discharge Statement: "Patient was advised to return to the ER or call 911 if any headaches, dizziness, shortness of breath, chest pain, abdominal pain, bleeding, fevers, or worsening of medical condition. Patient was counseled about treatment plan, medications, possible side effects, patientverbalized understanding. All questions were answered to the best of my ability. This discharge took greater then 30 minutes in planning, reviewing documentation, counseling the patient, and discussing with other team members." ASSESSMENT ASSESSMENT Hospital Course Uneventful Assessment Sepsis secondary to acute right parotitis Rocephin BERNICE on CKD 4 secondary to grade 4 lupus nephritis: BUN creatinine 50 and 6.7: Nephrology consult by Dr. Mckeon appreciated; status post tunneled dialysis cath placement by radiologist, patient getting dialysis today 02-23-25, outpatient chair time with [facility] dialysis set up for 4:45 p.m. Sunday Uncontrolled hypertension Systemic lupus erythematosus Grade 4 lupus nephritis Sleep apnea on CPAP at home, continue CPAP Date of Service: Feb 23, 2025 Billing Provider: SAMSON DELACRUZ MD Common Visit Codes: [id number] DISCH DAY >30min SAMSON DELACRUZ MD Feb 23, 2025 10:05
[2025-02-23] MEDS ORDERED: CEPH500C PO (10:06)
--- NOTE | 2025-02-23 13:06 | DVHPN2 ---
Progress Note Date Seen: Feb 23, 2025 Medical Necessity Reason Pt with a Central, PICC or Fol: No Subjective Patient reports: No new complaints Objective vital signs Vital Sign Date Time Temp Pulse Resp B/P (MAP) Pulse Ox O2 Delivery O2 Flow Rate FiO2 02/23/25 12:50 149/84 02/23/25 12:39 94 02/23/25 11:09 38.0 02/23/25 08:30 18 93 02/23/25 08:00 Room Air* 0 21 Total Intake and Output 02/22/25 02/22/25 02/23/25 15:00 23:00 07:00 Intake Total 50 ml 400 ml 550 ml Output Total 300 ml 850 ml Balance 50 ml 100 ml -300 ml medications Current Medications Medications Dose Ordered Sig/Yvan Route Start Time Stop Time Status Last Admin Dose Admin Acetaminophen/ Hydrocodone Bitart 1 tab Q4HP PRN PO 02/17/25 08:00 02/23/25 12:40 1 TAB Ondansetron HCl 4 mg Q4HP PRN IV 02/17/25 08:00 Docusate Sodium 100 mg BIDPRN PRN PO 02/17/25 08:00 Acetaminophen 650 mg Q6HP PRN PO 02/17/25 08:00 Nitroglycerin 0.4 mg Q5MINP PRN SL 02/17/25 08:00 Morphine Sulfate 2 mg Q30M PRN IV 02/17/25 08:00 Aspirin 81 mg DAILY PO 02/17/25 10:00 02/23/25 12:38 81 MG Hydroxychloroquine Sulfate 200 mg BID PO 02/17/25 10:00 02/23/25 12:38 200 MG Pantoprazole Sodium 40 mg DAILY PO 02/17/25 10:00 02/23/25 12:38 40 MG Patient Own Medication 25 mg Q12HR PO 02/17/25 10:00 UNV Patient Own Medication 1 cap DAILY PO 02/17/25 10:00 UNV Ceftriaxone Sodium 50 ml @ 100 mls/hr DAILY@09 IV 02/17/25 09:00 02/23/25 12:48 100 MLS/HR Carvedilol 25 mg BID PO 02/17/25 10:00 02/23/25 12:39 25 MG Cholecalciferol 5,000 unit DAILY PO 02/17/25 10:00 02/23/25 12:38 5,000 UNIT Gabapentin 100 mg BID PO 02/17/25 22:00 02/23/25 12:38 100 MG Hydralazine HCl 10 mg Q6HP PRN IV 02/17/25 11:00 02/21/25 00:46 10 MG Clonidine HCl 0.2 mg Q8H PO 02/17/25 19:15 02/22/25 19:43 0.2 MG Examination: GENERAL:Normal, CVS:Normal, SKIN:Normal laboratory and microbiology Laboratory Tests 02/23/25 06:15 Test 02/23/25 06:15 Range/Units Serum Glucose 108 H 74-106 mg/dL Microbiology Date/Time Source Procedure Growth Status 02/19/25 14:32 Blood Blood Culture - Preliminary NO GROWTH AFTER 72 HOURS OF INCUBATION. 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
== END 2025-02-23 15:25 | disposition home or self-care (01) | DRG 720 ==
LOC: ER 18:59 → OVERFLOW 02-17 07:53 → TELE-CENTR 02-17 22:52
PROVIDERS: ADMIT Family Medicine; ATTEND Family Medicine
PROC: 5A09357 Assistance with Respiratory Ventilation, Less than 24 Consecutive Hours, Continuous Positive Airway Pressure (ICD-10-PCS; 2025-02-18)
PROC: 0JH63XZ Insertion of Tunneled Vascular Access Device into Chest Subcutaneous Tissue and Fascia, Percutaneous Approach (ICD-10-PCS; principal; 2025-02-20)
PROC: 02H633Z Insertion of Infusion Device into Right Atrium, Percutaneous Approach (ICD-10-PCS; 2025-02-20)
PROC: B5181ZA Fluoroscopy of Superior Vena Cava using Low Osmolar Contrast, Guidance (ICD-10-PCS; 2025-02-20)
PROC: B548ZZA Ultrasonography of Superior Vena Cava, Guidance (ICD-10-PCS; 2025-02-20)
PROC: 5A1D70Z Performance of Urinary Filtration, Intermittent, Less than 6 Hours Per Day (ICD-10-PCS; 2025-02-20)
PROC: 5A1D70Z Performance of Urinary Filtration, Intermittent, Less than 6 Hours Per Day (ICD-10-PCS; 2025-02-21)
PROC: 5A1D70Z Performance of Urinary Filtration, Intermittent, Less than 6 Hours Per Day (ICD-10-PCS; 2025-02-23)
DX: A41.9 Sepsis, unspecified organism (principal); N17.0 Acute kidney failure with tubular necrosis; I13.0 Hypertensive heart and chronic kidney disease with heart failure and stage 1 through stage 4 chronic kidney disease, or unspecified chronic kidney disease; I50.9 Heart failure, unspecified; D63.1 Anemia in chronic kidney disease; M32.14 Glomerular disease in systemic lupus erythematosus; N18.4 Chronic kidney disease, stage 4 (severe); K11.21 Acute sialoadenitis; E66.01 Morbid (severe) obesity due to excess calories; M32.9 Systemic lupus erythematosus, unspecified; M10.9 Gout, unspecified; F17.210 Nicotine dependence, cigarettes, uncomplicated; E55.9 Vitamin D deficiency, unspecified; G47.30 Sleep apnea, unspecified; Z86.73 Personal history of transient ischemic attack (TIA), and cerebral infarction without residual deficits; Z91.148 Patient's other noncompliance with medication regimen for other reason; Z68.41 Body mass index [BMI] 40.0-44.9, adult; Z99.2 Dependence on renal dialysis; Z79.82 Long term (current) use of aspirin; Z79.899 Other long term (current) drug therapy
CPT/HCPCS: 36415; 36558; 70486; 71045; 76775; 77001; 80048; 80053; 80074; 81001; 82306; 82570; 83605; 83735; 84100; 84156; 84300; 85007; 85025; 85027; 85610; 85730; 86850; 86900; 86901; 87040; 90935; 93005; 94660; 96374; 99152; C1894; G0378; J2250; J7517